=== PATIENT | female | born 2000 | race Caucasian/White ===

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

== ENCOUNTER 2020-05-30 18:26 | Emergency (ER) | payer MEDICAID, SELFPAY ==
[2019-04-12 07:57] VITALS: BMI 37.7
[2020-05-30 18:27] VITALS: BP 145/94; PULSE 140; RESP 20; TEMP 36.4; O2SAT 100; BMI 35.1
--- NOTE | 2020-05-30 18:44 | EKG12_ITS ---
Test Reason : SOB Blood Pressure : / mmHG Vent. Rate : 130 BPM Atrial Rate : 130 BPM P-R Int : 146 ms QRS Dur : 078 ms QT Int : 282 ms P-R-T Axes : 042 046 047 degrees QTc Int : 415 ms Sinus tachycardia Otherwise normal ECG Confirmed by GEORGIA BOND, MATT ([id number]), scientific editor SILVER FAROOQ ([id number]) on 06/04/2020 10:13:30 AM Referred By: CHRISTIANA Confirmed By:SHANTHI HO MD
--- NOTE | 2020-05-30 18:46 | ED.VISSUMM ---
- ER Visit Summary Date of Service: 05/30/20 Chief Complaint: Shortness of breath History of Present Illness: The patient is a 19 F who presents with shortness of breath and not feeling well for the past 3 days. Patient describes it as aching. Patient states it is generalized. Patient admits to subjective chills. Patient also admits to a sore throat. Patient admits to a nonproductive cough. Patient admits to general myalgias and headache. Patient denies any exposures to anybody with COVID-19. Patient denies any loss of taste or smell. Physical Examination: Vital signs are stable except for tachycardia of 140. Patient is afebrile. Patient is in no acute distress. Oral mucosa is pink and moist. Neck is supple. Trachea is midline. There is no JVD noted. Heart was regular and tachycardic. Lungs are clear and equal bilaterally. Abdomen is soft. Bowel sounds are normal. There is no tenderness. There is no rebound or guarding noted. Skin is warm dry. Cranial nerves II through XII are intact. There are no focal motor or sensory deficits noted. Extremities are intact. There is no calf tenderness or edema. Test Results: EKG was obtained. On my interpretation there is a sinus tachycardia with a rate of 130. There are no acute ST or T wave changes noted. CBC and comprehensive metabolic profile were obtained and were within normal limits. Serum hCG was negative. Portable 1 view chest x-ray was obtained. On my interpretation, lung coyne are clear. There is normal cardiac silhouette. Bony thorax is normal. There is no acute process noted. Radiologist also interpreted the x-ray and agrees. Due to the persistent tachycardia, CTA of the chest was obtained. There is no evidence of pulmonary embolism. There is no pulmonary consolidation. This was interpreted by the radiologist and reviewed by myself. Emergency Department Course and Treatment: Patient was given 500 cc bolus of normal saline. Patient was instructed to follow-up with her primary care physician in 3 to 5 days. Patient was instructed to quarantine for the next 10 days. Patient was instructed to return if worse in any way. Patient understood and was agreeable with the plan. All questions were answered. Disposition: Discharge home Impression: COVID-19 This note was generated with [employer] dictation software. It may contain incorrect words, spelling, and punctuation that were not noted in review of the chart prior to signing ED Disposition - Plan for ED Patient: Disposition: Home or Assisted Living Diagnosis: COVID-19 Instructions: Coronavirus Disease 2019 (COVID-19): Overview, Coronavirus Disease 2019 (COVID-19): Caring for Yourself or Others Referrals: Peggy Lei MD [Primary Care Provider] - 3-5 Days
--- NOTE | 2020-05-30 19:09 | RAD_ITS ---
STUDY: X-RAY CHEST REASON FOR EXAM: Female, 19 years old. SOB, COUGH, CONGESTION, HEADACHE, CHILLS, SORE THROAT AND MUSCLE PAIN X 3 DAYS. TECHNIQUE: Frontal view of the chest COMPARISON: 29 June 2017 FINDINGS: The lungs are clear and expanded. There is no demonstrated pleural abnormality. Normal size heart. Normal mediastinum and shanti. Normal visualized pulmonary arteries. Normal visualized aortic arch and descending thoracic aorta. Normal visualized thoracic spine. Normal visualized ribs, clavicles, and shoulders. There is no demonstrated abnormality of the visualized soft tissue structures of the upper abdomen. RAD/Chest 1 View (Portable) IMPRESSION: Normal x-ray examination of the chest. Electronically Signed: Pam White, at 19:58 EST Tel , Service support ,
[2020-05-30 19:21] LABS: Absolute Lymphocyte Count 0.85 X10^3/uL (0.83-4.51); Absolute Neutrophil Count 4.9 X10^3/uL (2.0-7.7); Basophil# 0.04 X10^3/uL; Basophil% 0.6 % (0-1); Eosinophil# 0.02 X10^3/uL; Eosinophils% 0.3 % (0-5); Hematocrit 43.3 % (37-47); Hemoglobin 14.9 g/dL (12.0-15.0); Lymphocyte # 0.85 X10^3/ul (4.0); Lymphocyte % 12.9 % (19-41); Mean Corp Hgb Conc 34.4 g/dL (32-36); Mean Corpuscular Hgb 29.9 pg (27.0-32.0); Mean Corpuscular Volume 86.8 fL (81-99); Mean Platelet Vol. 9.8 fl (6.2-12.0); Monocyte# 0.82 X10^3/uL; Monocyte% 12.4 % (0-10); NRBC Flagged by Analyzer 0 % (0-5); Neutrophil # 4.85 X10^3/uL (2.7-7.7); Neutrophil % 73.3 % (47-70); Platelet Count 316 K/mm3 (150-450); RBC Distribution Width CV 11.8 % (11.6-14.6); RBC Distribution Width SD 37.2 fl (35.1-43.9); Red Blood Count 4.99 M/mm3 (4.2-5.4); White Blood Count 6.6 K/mm3 (4.4-11.0)
[2020-05-30 19:39] LABS: ALB/GLOB Ratio 1.2 RATIO (0.9-2.4); AST(SGOT) 18 U/L (15-37); Alanine Aminotransfer ALT/SGPT 39 U/L (13-56); Alkaline Phosphatase 67 U/L (45-117); Anion Gap 4 (5-15); BUN 9 mg/dL (7-18); Calcium,Total 8.8 mg/dL (8.5-10.1); Chloride 108 mmol/L (98-107); Creatinine, Serum 0.69 mg/dL (0.55-1.02); EST Glomerular Filtration Rate 116 mL/min (>60); Est Glom Filt Rate - Afr Amer 140 mL/min (>60); Estimated Creatinine Clearance 113.24 ml/min; Globulin 3.2 g/dL (2.2-4.2); Glucose 88 mg/dL (74-106); Potassium 3.6 mmol/L (3.5-5.1); Protein, Total 7.2 g/dL (6.4-8.2); Sodium Level 139 mmol/L (136-145)
[2020-05-30 19:40] VITALS: PULSE 125; RESP 12; O2SAT 99
[2020-05-30] MEDS: Ibuprofen 600 MG Tablet PO (19:52)
[2020-05-30 19:58] LABS: Lactic Acid 1.1 mmol/L (0.4-1.9)
--- NOTE | 2020-05-30 20:45 | CT_ITS ---
STUDY: CTA CHEST REASON FOR EXAM: Female, 19 years old. COVID, SOB, COUGH, CONGESTION, MYALGIAS, SORE THROAT, TACHYCARDIA RADIATION DOSAGE (If Supplied By Facility): CTDIvol = ( 12.375 ) mGy, DLP = ( 487.28 ) mGycm TECHNIQUE: The examination was performed with the intravenous administration of IV 100mL [id number]-370. Post-processing of the angiographic images was performed, with multiplanar reformation and 3D reconstruction. Individualized dose optimization techniques were used for this CT. COMPARISON: None. FINDINGS: Normal enhancement of the main pulmonary artery and right and left pulmonary arteries. Normal enhancement of the bilateral peripheral pulmonary arteries. There is no demonstrated pulmonary embolism. Normal thoracic aorta and visualized great vessels. There is no demonstrated aortic dissection. Normal heart and pericardium. Normal mediastinum. Normal hilar regions. Normal visualized trachea and bronchi. The lungs are well expanded. Normal pulmonary parenchyma. Normal pleura. Normal chest wall structures. Normal osseous structures. Normal visualized upper abdomen. CT/CTA Chest W/WO Contrast IMPRESSION: No central or segmental pulmonary embolism. No airspace consolidation/infiltrate. Electronically Signed: Brando Salvador MD (Brooks) at 21:23 EST , Service support ,
[2020-05-30 21:18] LABS: Internal QC Validated? YES +Cl - CLEAR BKGD; Pregnancy, Serum, hCG Quali. NEGATIVE Negative
[2020-05-30 21:33] VITALS: BP 136/90; PULSE 119; RESP 21; TEMP 36.2; O2SAT 100
== END 2020-05-30 21:37 | disposition home or self-care (01) ==
PROVIDERS: Emergency Provider Emergency Medicine; PCP Pediatrics
DX: U07.1 COVID-19 (principal)
CPT/HCPCS: 36415; 71045; 71275; 80053; 83605; 84703; 85025; 87040; 87426; 93005; 99285; J7040; Q9967; A4216

== ENCOUNTER 2020-10-26 09:58 | Emergency (ER) | payer MEDICAID, SELFPAY ==
[2020-10-26 09:58] VITALS: BP 157/91; PULSE 98; RESP 16; TEMP 36.3; O2SAT 100; BMI 35.2
--- NOTE | 2020-10-26 10:21 | EX.ED.DYSGE1 ---
HPI History of Present Illness Chief Complaint: Flank Pain Informant: patient and parent Narrative Narrative: Patient continues with left flank pain. It started 3 days ago. At that time she went to [facility] and was diagnosed with a 3 mm kidney stone. She was given Baldwin, Zofran, ibuprofen and Flomax to take at home. She has a known history of Tylenol and when she took the Baldwin for pain it made her vomit. She has not taken it since that she continues with pain. Pain is in the left flank and radiates to the left groin. She denies any dysuria. She has had no new fevers. She is here today for pain and nausea control. [facility] Medical History (Updated 10/26/20 @ 11:[address] Myles Laurent MD) Acne vulgaris Anxiety and depression Kidney stones Patellofemoral stress syndrome of left knee Home Medications levonorgestrel 20.1 mcg/24 hrs (6 yrs) 52 mg intrauterine device 1 insert INTRAUTERINE ONCE 06/28/18 [History Last Taken Unknown] Xanax 0.25 mg PO/SL DAILY 05/30/20 [History Last Taken Unknown] oxycodone 5 mg PO Q6H PRN 3 Days #8 cap 10/26/20 [Rx Last Taken Unknown] promethazine 25 mg PO Q6H PRN PRN #10 tablet 10/26/20 [Rx Last Taken Unknown] Allergy/AdvReac Type Severity Reaction Status Date / Time acetaminophen [From Tylenol] AdvReac Vomiting Verified 10/26/20 10:01 Family History Mother Heart disease Father bipolar Surgical History History of tonsillectomy and adenoidectomy Social History Smoking Status: Never smoker alcohol intake: never substance use type: does not use what type of physical activity do you participate in: walking seatbelt use: always 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 ROS ROS ED Constitutional Constitutional ED: Denies chills or fever(s) Eyes Eyes: Denies blurry vision, change in vision, diplopia or loss of vision ENT ENT ED: Reports other; Denies ear pain, rhinorrhea or sore throat Cardiovascular Cardiovascular: Denies chest pain, palpitations or racing heartbeat Respiratory/Chest Respiratory/Chest: Denies cough, dyspnea, dyspnea on exertion or sputum Gastrointestinal Gastrointestinal: Denies abdominal pain, diarrhea, nausea or vomiting Genitourinary Genitourinary ED: Reports other Details: Left flank pain Musculoskeletal Musculoskeletal: Denies back pain, myalgias or neck pain Integumentary Denies abscess or rash Neurologic Neurologic: Denies headache(s) or weakness Psychiatric Psychiatric: Denies anxiety or depression Endocrine Endocrinology: Denies polydipsia or polyuria Hematologic/Lymphatic Hematologic/Lymphatic: Denies easy bleeding or easy bruising Allergic/Immunologic Allergic/Immunologic ED: Denies urticaria EXAM Physical Exam Const Vital Signs: 10/26/20 09:58 Temperature 97.3 F L Temperature Source Temporal Pulse Rate 98 Respiratory Rate 16 Blood Pressure 157/91 H Blood Pressure Mean 113 Pulse Ox 100 Oxygen Delivery Method Room Air Positive well nourished and well developed General Appearance ED: well developed and NAD HEENT Reports normocephalic and head/scalp atraumatic normocephalic and atraumatic; Negative for tenderness Eyes PERRL and EOMs intact bilaterally General Eye ED: Negative for scleral icterus Neck supple and no JVD Chest Wall palpation of chest normal Chest: Negative for tenderness Resp normal respiratory effort and clear to auscultation bilaterally Effort and Inspection: Negative for respiratory distress Cardio regular rate and regular rhythm; Negative for no murmurs GI soft to palpation, non-tender and non-distended Palpation: soft and tender other (Left side) Narrative: She does have left flank tenderness to palpation. Back/Spine no CVA tenderness and no thoracic nor lumbar tenderness Cervical Spine: Negative for cervical spine tenderness Extremity normal to inspection General Extremety ED: Negative for tenderness Neuro oriented x3, CN's II-XII intact bilaterally and no sensory deficits noted Sensorium / Orientation: awake and alert Motor Exam: strength 5/5 throughout Psych mental status grossly normal Skin no rashes or lesions noted MDM MDM MDM Narrative Medical decision making narrative: I was able to review the patient's visit from her previous ED stay at the other facility. She was found to have a 3 mm stone at the left UVJ. Her urinalysis had no infection. At this point the patient was treated with Toradol and morphine. She still had pain so she was given 1 dose of Dilaudid. Upon reevaluation at 1145 she is feeling much better. I feel she can be discharged home with oxycodone without Tylenol as this likely caused and precipitated her vomiting. I will give her Phenergan as well to help with her vomiting. She will be given urology follow-up. Discharge Plan Triage Chief Complaint: Flank Pain ED Provider: Myles Laurent Dx/Rx/DC Orders Clinical Impression: Renal colic on left side Instructions: ED Kidney Stone w/ Colic Prescriptions: New promethazine [promethazine] 25 MG tablet 25 mg PO Q6H PRN PRN (Reason: Nausea) Qty: 10 RF: 0 oxycodone 5 mg capsule 5 mg PO Q6H PRN (Reason: pain) 3 Days Qty: 8 RF: 0 No Action Liletta 19.5 mcg/24 hour (4 years) intrauterine device 1 insert Intrauterine ONCE RF: 0 Xanax 0.25 mg PO/SL DAILY RF: 0 Primary Care Provider: Peggy Lei Referrals: Dusty Martínez MD [STAFF PHYSICIAN] - Peggy Lei MD [Primary Care Provider] - Disposition Disposition: Home, self care
[2020-10-26] MEDS: Morphine 4 MG/ML Syringe IV (10:42)
[2020-10-26] MEDS: 0.9% Normal Saline 1,000 ML 1000 ML IV (10:42)
[2020-10-26] MEDS: Ketorolac 15 MG/ML Vial IV (10:43)
[2020-10-26] MEDS: Ondansetron 4 MG/2 ML Vial IV (10:43)
--- NOTE | 2020-10-26 10:45 | ED.RN ---
PT MEDICATED PER THIS RN. COMPUTER IN ROOM NOT WORKING.
[2020-10-26] MEDS: HYDROmorphone 1 MG/ML Syringe IV (11:30)
[2020-10-26 12:01] VITALS: PULSE 92; RESP 16; O2SAT 98
== END 2020-10-26 12:05 | disposition home or self-care (01) ==
PROVIDERS: Emergency Provider Emergency Medicine; PCP Pediatrics
DX: N23 Unspecified renal colic (principal); F41.9 Anxiety disorder, unspecified; Z79.899 Other long term (current) drug therapy
CPT/HCPCS: 96374; 96375; 99284; A4216; J2405

== ENCOUNTER 2021-01-21 21:18 | Emergency (ER) | payer MEDICAID, SELFPAY ==
[2021-01-21 21:18] VITALS: BP 120/72; PULSE 119; RESP 18; TEMP 36.3; O2SAT 99; BMI 37.5
[2021-01-21 21:41] LABS: Mucous, Urine 0 SEEN /hpf (<or=2+); Red Blood Cells-Urine 0 SEEN /hpf (0-5)
[2021-01-21 21:44] LABS: Color, Urine YELLOW (Yellow); Glucose, Dipstick Normal (Normal); Ketone-Dipstick 15 mg/dl (Negative); Leukocyte Esterase-Dipstick 500 /ul (Negative); Nitrite-Dipstick Negative (Negative); Occult Blood-Urine Negative /ul (Negative); Protein-Dipstick 30 mg/dl (Negative); Specific Gravity, Urine 1.015 (1.002-1.030); Urine Bilirubin Dipstick Negative (Negative); Urine Clarity Cloudy (Clear); Urine Urobilinogen 4 mg/dl (Normal); Urine pH 6.5 (5.0 - 8.0)
[2021-01-21 21:51] LABS: Squamous Epithelial Cells - UA 10-25 SEEN /hpf (5-10)
[2021-01-21 21:53] LABS: White Blood Cells 10-25 SEEN /hpf (0-5)
[2021-01-21 21:55] LABS: Bacteria 2+ /hpf (None Seen)
--- NOTE | 2021-01-21 22:14 | EX.ED.DYSGE1 ---
HPI History of Present Illness Chief Complaint: Flank Pain Informant: patient Onset/Context/Timing Onset: Today Context: - (Awoke with symptoms this morning mostly, progressive throughout the day) Timing: Continuous Current Severity: Moderate Maximum Severity: Moderate Worsened by: n/a Relieved by: n/a Associated Symptoms Associated Symptoms: n/v, urinary sx, headache, low back pain Narrative Narrative: Patient woke up this morning with migraine bifrontal, she has had this before, associated with nausea and vomiting, low back pain, and urinary symptoms are progressed throughout the day. She has had urinary frequency, urgency, hesitancy. No gross dysuria or hematuria, no abdominal pain, no fevers or chills. She has pain throughout her low back nonlateralizing, she states it feels like kidney pain and she has a history of kidney stones and admits usually that pain is unilateral and worse than this. Patient has an IUD and has had no menstrual cycles for couple years. [facility] Medical History Acne vulgaris Anxiety and depression Kidney stones Patellofemoral stress syndrome of left knee PTSD (post-traumatic stress disorder) Home Medications levonorgestrel 20.1 mcg/24 hrs (6 yrs) 52 mg intrauterine device 1 insert INTRAUTERINE ONCE 06/28/18 [History Last Taken Unknown] Xanax 0.25 mg PO/SL DAILY 05/30/20 [History Last Taken Unknown] metoclopramide HCl 10 mg PO Q6H PRN PRN #20 tab 01/21/21 [Rx Last Taken Unknown] nitrofurantoin monohyd/m-cryst [Macrobid] 100 mg PO Q12H 5 Days #10 cap 01/21/21 [Rx Last Taken Unknown] Allergy/AdvReac Type Severity Reaction Status Date / Time acetaminophen [From Tylenol] AdvReac Vomiting Verified 01/21/21 21:21 Family History Mother Heart disease Father bipolar Surgical History History of tonsillectomy and adenoidectomy Social History Smoking Status: Never smoker alcohol intake: never substance use type: does not use what type of physical activity do you participate in: walking seatbelt use: always additional social history: [employer]- [employer] Education ROS ROS ED Constitutional Constitutional ED: Denies chills or fever(s) Eyes Eyes: Denies change in vision or diplopia ENT ENT ED: Denies rhinorrhea or sore throat Cardiovascular Cardiovascular: Denies chest pain or palpitations Respiratory/Chest Respiratory/Chest: Denies cough or dyspnea Gastrointestinal Gastrointestinal: Reports nausea and vomiting; Denies abdominal pain or diarrhea Genitourinary Genitourinary ED: Reports as per HPI, urinary frequency, urinary hesitancy and urinary urgency; Denies dysuria or hematuria Musculoskeletal Musculoskeletal: Reports back pain; Denies neck pain Integumentary Denies abscess or rash Neurologic Neurologic: Denies headache(s), paresthesias or weakness Psychiatric Psychiatric: Denies anxiety or suicidal thoughts EXAM Physical Exam Const Vital Signs: 01/21/21 21:18 01/21/21 21:55 Temperature 97.3 F L Temperature Source Temporal Pulse Rate 119 H Respiratory Rate 18 Respiratory Effort Normal Non-Labored Respiratory Pattern Normal Blood Pressure 120/72 Blood Pressure Mean 88 Pulse Ox 99 Oxygen Delivery Method Room Air Positive well nourished and well developed General Appearance ED: well developed and NAD HEENT Reports moist mucous membranes normocephalic and atraumatic Eyes PERRL and EOMs intact bilaterally Neck full ROM and supple Resp normal respiratory effort and clear to auscultation bilaterally Cardio regular rate, regular rhythm and no murmurs GI non-tender and non-distended Auscultation: normoactive bowel sounds Palpation: soft Back/Spine normal ROM and normal to inspection Back/Spine Narrative: Patient points to lower back in the lumbar area with pain, she has mild discomfort with CVA tapping bilaterally General Back: other FROM Extremity normal to inspection General Extremety ED: Negative for edema, pulses abnormal or tenderness General Extremity: Negative for edema or pulses abnormal Neuro oriented x3, CN's II-XII intact bilaterally and no sensory deficits noted Sensorium / Orientation: awake and alert Motor Exam: strength 5/5 throughout Skin no rashes or lesions noted and no wounds MDM MDM MDM Narrative Medical decision making narrative: Urinalysis as below, signs of infection and no blood. My suspicion is her low back pain is due to cystitis, along with her urinary symptoms, and her vomiting is more related to her migraine. Given that my suggestion is to treat symptomatically and try a course of antibiotics directed at cystitis, as opposed to CT and further work-up, discussed these options with the patient and her mother and they are in agreement with that. Lab Data Attestation: I reviewed the patient's lab results. Labs: Laboratory Results - last 24 hr 01/21/21 21:30 Urine Color YELLOW Urine Clarity Cloudy Urine pH 6.5 Ur Specific [place] 1.015 Urine Protein 30 H Urine Glucose (UA) Normal Urine Ketones 15 H Urine Occult Blood Negative Urine Nitrite Negative Urine Bilirubin Negative Urine Urobilinogen 4 H Ur Leukocyte Esterase 500 H Urine RBC 0 SEEN Urine WBC 10-25 SEEN Ur Squamous Epith Cells 10-25 SEEN Urine Bacteria 2+ Urine Mucus 0 SEEN Discharge Plan Triage Chief Complaint: Flank Pain ED Provider: Brennan Miguel Dx/Rx/DC Orders Clinical Impression: Acute cystitis, Headache, migraine Instructions: ED, Migraine (Classical), ED CYSTITIS Female Adult Prescriptions: New metoclopramide HCl [metoclopramide HCl] 10 MG tablet 10 mg PO Q6H PRN PRN (Reason: Headache or nausea) Qty: 20 RF: 0 nitrofurantoin monohyd/m-cryst [Macrobid] 100 mg capsule 100 mg PO Q12H 5 Days Qty: 10 RF: 0 No Action Liletta 19.5 mcg/24 hour (4 years) intrauterine device 1 insert Intrauterine ONCE RF: 0 Xanax 0.25 mg PO/SL DAILY RF: 0 Primary Care Provider: Peggy Lei Referrals: Peggy Lei MD [Primary Care Provider] - 3-5 Days if not improving Disposition Disposition: Home, Self Care
[2021-01-21] MEDS: Nitrofurantoin Macrocrystals 100 MG Capsule PO (22:18)
[2021-01-21] MEDS: Metoclopramide 10 MG/2 ML Vial 5 MG IM (22:19)
[2021-01-21] MEDS: Ketorolac 60 MG/2 ML Vial IM (22:19)
== END 2021-01-21 23:01 | disposition home or self-care (01) ==
LOC: ED 22:53
PROVIDERS: Emergency Provider Emergency Medicine; PCP Pediatrics
DX: N30.00 Acute cystitis without hematuria (principal); G43.909 Migraine, unspecified, not intractable, without status migrainosus; Z79.3 Long term (current) use of hormonal contraceptives; Z87.442 Personal history of urinary calculi
CPT/HCPCS: 81001; 96372; 99283

== ENCOUNTER 2022-01-23 14:25 | Emergency (ER) | payer MEDICAID, SELFPAY ==
[2022-01-23 14:27] VITALS: BP 122/74; PULSE 99; RESP 24; TEMP 37.7; O2SAT 100; BMI 37.2
--- NOTE | 2022-01-23 14:36 | EDS_ITS ---
HPI History of Present Illness Chief Complaint: Lower Extremity Injury Informant: patient Onset/Context/Timing Onset: Today Context: Sudden Onset Quality of Pain: Aching and Throbbing Current Severity: Severe Maximum Severity: Severe Narrative Narrative: Patient present secondary to right ankle injury. She states that she was at [employer] and jumped down off of something rolling her ankle. She denies any other injury. [facility] Medical History Acne vulgaris Anxiety and depression Kidney stones Patellofemoral stress syndrome of left knee PTSD (post-traumatic stress disorder) Home Medications levonorgestrel 20.1 mcg/24 hrs (6 yrs) 52 mg intrauterine device (Liletta) 1 insert Intrauterine ONCE 06/28/18 [History Last Taken Unknown] naproxen 500 mg tablet (Naprosyn) 500 mg PO BID PRN pain #20 tabs 01/23/22 [Rx Last Taken Unknown] Allergy/AdvReac Type Severity Reaction Status Date / Time acetaminophen [From Tylenol] AdvReac Vomiting Verified 01/23/22 14:27 Family History Mother Heart disease Father bipolar Surgical History History of tonsillectomy and adenoidectomy Social History Smoking Status: Never smoker alcohol intake: never substance use type: does not use what type of physical activity do you participate in: walking seatbelt use: always additional social history: [employer]- [employer] Education ROS ROS ED Constitutional Constitutional ED: Denies chills or fever(s) Eyes Eyes: Denies change in vision or discharge from eye(s) ENT ENT ED: Denies discharge from eye(s), rhinorrhea or sore throat Cardiovascular Cardiovascular: Denies chest pain or palpitations Respiratory/Chest Respiratory/Chest: Denies cough or dyspnea Gastrointestinal Gastrointestinal: Reports nausea and other Details: Dry heaves ; Denies abdominal pain or diarrhea Genitourinary Genitourinary ED: Denies difficulty urinating or dysuria Musculoskeletal Musculoskeletal: Reports extremity pain; Denies back pain Integumentary Denies Abrasions or rash Neurologic Neurologic: Denies headache(s) or weakness Allergic/Immunologic Allergic/Immunologic ED: Denies lip swelling or urticaria EXAM Physical Exam Const Vital Signs: 01/23/22 14:27 Temperature 99.8 F H Temperature Source Temporal Pulse Rate 99 Respiratory Rate 24 H Blood Pressure 122/74 H Blood Pressure Mean 90 Pulse Ox 100 Oxygen Delivery Method Room Air Positive well nourished and well developed General Appearance ED: well developed HEENT Reports normocephalic and head/scalp atraumatic Eyes PERRL and EOMs intact bilaterally Neck supple Chest Wall inspection of chest normal and palpation of chest normal Resp normal respiratory effort and clear to auscultation bilaterally Cardio regular rate and regular rhythm GI normal to inspection, nondistended, normoactive bowel sounds Palpation: soft Extremity Extremity Narrative: Edema and tenderness over the lateral malleolus of the right ankle. No tenderness over the foot itself. No tenderness at the knee or proximal fibula. Strong distal pulses and can wiggle toes. Neuro oriented x3 Sensorium / Orientation: alert Psych Psych Narrative: Anxious and tearful Skin no rashes or lesions noted MDM MDM MDM Narrative Medical decision making narrative: Patient given IM Toradol and Zofran. Right ankle x-rays obtained. Treatment and Re-Evaluation Narrative: Right ankle x-ray per my interpretation shows no fracture. Test results discussed with the patient. She be placed in an air stirrup splint and given crutches. She may weight-bear as tolerated. Prescription for naproxen will be sent to the pharmacy for her. Orthopedic follow-up information given if needed. Return instructions provided. Discharge Plan Triage Chief Complaint: Lower Extremity Injury ED Provider: Sandra Thomas Dx/Rx/DC Orders Clinical Impression: Right ankle sprain Instructions: ED Ankle Sprain (Adult) Prescriptions: New naproxen [Naprosyn] 500 mg tablet 500 mg PO BID PRN (Reason: pain) Qty: 20 0RF No Action Liletta 19.5 mcg/24 hour (4 years) intrauterine device 1 insert Intrauterine ONCE Primary Care Provider: Peggy Lei Referrals: Peggy Lei MD [Primary Care Provider] - Vidal Kraus MD [Med Staff - Active Staff] - 10-14 Days if not better Disposition Disposition: Home, Self Care
[2022-01-23] MEDS: Ketorolac 60 MG/2 ML Vial IM (14:41)
[2022-01-23] MEDS: Ondansetron 4 MG/2 ML Vial IM (14:42)
--- NOTE | 2022-01-23 14:45 | RAD_ITS ---
STUDY: X-RAY - RIGHT ANKLE REASON FOR EXAM: Female, 21 years old. injury TECHNIQUE: 3 view(s) of the ankle. COMPARISON: None. FINDINGS: Normal visualized distal tibia and fibula. Normal medial and lateral malleoli. Normal tibiotalar articulation and ankle mortise. Normal visualized talus and calcaneus. The visualized subtalar, talonavicular, calcaneocuboid and tarsal articulations are normal. There is no demonstrated fracture. Mild soft tissue swelling is present around the ankle. RAD/Ankle min 3 Views IMPRESSION: Mild soft tissue swelling Electronically Signed: Brent Frazier MD at 15:08 EDT ,
[2022-01-23 15:08] VITALS: RESP 16
== END 2022-01-23 15:34 | disposition home or self-care (01) ==
PROVIDERS: Emergency Provider Emergency Medicine; PCP Pediatrics; Visit Provider Emergency Medicine
DX: S93.401A Sprain of unspecified ligament of right ankle, initial encounter (principal); X50.1XXA Overexertion from prolonged static or awkward postures, initial encounter; Y93.39 Activity, other involving climbing, rappelling and jumping off; Y99.8 Other external cause status; Y92.838 Other recreation area as the place of occurrence of the external cause
CPT/HCPCS: 73610; 96372; 99284; J2405

== ENCOUNTER → 2022-09-22 | Outpatient (CLI) | payer MEDICAID, SELFPAY ==
[2022-09-22 12:02] LABS: Progesterone Level 0.73 ng/mL (See Comment)
[2022-09-22 12:11] LABS: Estradiol 230.8 pg/mL; Follicle Stimulating Hormone 9.5 mIU/mL; Luteinizing Hormone 52.6 mIU/mL; Prolactin 11.1 ng/mL
[2022-09-23 21:07] LABS: Chlamydia By Nucleic Acid AMP Negative (Negative); Gonococcus By Nucleic Acid AMP Negative (Negative)
[2022-09-29 20:33] LABS: HPV Reflexed? NOT INDICATED
== END | disposition home or self-care (01) ==
LOC: LAB 10:46
PROVIDERS: PCP Pediatrics; Referring Provider Obstetrics & Gynecology; Visit Provider Obstetrics & Gynecology
DX: Z12.4 Encounter for screening for malignant neoplasm of cervix (principal); Z11.3 Encounter for screening for infections with a predominantly sexual mode of transmission; N91.2 Amenorrhea, unspecified
CPT/HCPCS: 36415; 82670; 83001; 83002; 84144; 84146; 84443; 87491; 87591; 88175; G0145

== ENCOUNTER → 2023-03-27 | Outpatient (CLI) | payer MEDICAID, SELFPAY ==
--- NOTE | 2023-03-27 15:13 | US_ITS ---
STUDY: ULTRASOUND OF THE FEMALE PELVIS - COMPLETE REASON FOR EXAM: Female, 22 years old. amenorrhea, r/o PCOS LMP: TECHNIQUE: Transabdominal and transvaginal TECHNICAL QUALITY: Adequate. COMPARISON: None. FINDINGS: The uterus is anteverted and is in a midline position. The uterus measures 8.4 x 4.4 x 4 cm. Normal uterine cervix. The endometrium measures 6.6 mm in thickness, and is hyperechoic. There is no demonstrated endometrial mass. There is no demonstrated myometrial mass. I.U.D. - The patient does not have an I.U.D. The right ovary is visualized. The right ovary measures 3.2 x 2 x 2.1 cm. There is numerous subcentimeter follicles. There is no dominant right ovarian cyst or ovarian mass. There is no visualized right adnexal mass or complex lesion. There is normal arterial and normal venous vascularity. The left ovary is visualized. The left ovary measures 4.1 x 2.3 x 2.3 cm. There are numerous subcentimeter follicles There is no dominant left ovarian cyst or ovarian mass. There is no visualized left adnexal mass or complex lesion. There is normal arterial and normal venous vascularity. There is mild fluid in the cul-de-sac. US/Pelvic (Non ) IMPRESSION: Multiple subcentimeter ovarian follicles bilaterally. Possibility of polycystic ovary disease not excluded Recommend correlation with hormonal levels and other clinical parameters Electronically Signed: Onel Hill MD at 18:22 EDT ,
== END | disposition home or self-care (01) ==
LOC: US 15:11
PROVIDERS: Referring Provider Obstetrics & Gynecology; Visit Provider Obstetrics & Gynecology
DX: N91.2 Amenorrhea, unspecified (principal); N97.0 Female infertility associated with anovulation
CPT/HCPCS: 76830; 76856

== ENCOUNTER → 2023-05-09 | Outpatient (CLI) | payer MEDICAID, SELFPAY ==
--- NOTE | 2023-05-09 11:23 | RAD_ITS ---
INDICATION: infertility EXAMINATION/TECHNIQUE: Routine hysterosalpingography was performed. Total Fluoroscopic Time: 10 seconds AND number of Fluoroscopic Images: OR Radiation dosage index: 6.19 mGy COMPARISON: No relevant prior comparison study available FINDINGS: The uterine cavity contour is unremarkable. There are no filling defects or abnormalities. Both fallopian tubes are patent with free peritoneal spillage bilaterally. RAD/Salpingogram IMPRESSION: Negative hysterosalpingogram. Electronically Signed: Javier Soriano MD at 12:41 EST ,
--- NOTE | 2023-05-09 13:04 | OP.PCM_ITS ---
Problems Associated Problem List Diagnoses (1) Infertility associated with anovulation: Report of Operation Date of Procedure: 05/09/23 Pre-Operative Diagnosis: infertility Post-Operative Diagnosis: infertility Surgery/Procedure Performed:: Hysterosalpingogram Description of Surgical Findings:: bilateral spillage of contrast dye of both fallopian tubes. normal uterine cavity appearance. Surgeon: Sandra Mooney assistant to the director: None Type of Anesthesia: None Special Medications: none Specimen's removed: none Drains: none Estimated Blood Loss (mL): none Fluids Replaced: none Description of Procedure: Findings: Bilateral tubal patency and normal uterine cavity Operative details: Patient was taken to the x-ray room and was placed on the x- ray table and was in the dorsal lithotomy position. Speculum was placed in the vagina and the cervix prepped with Betadine and the HSG catheter was easily introduced into the uterus and speculum removed. Radiologist was brought in and while pushing radiopaque dye into the uterus via the HSG catheter the radiologist took multiple images and views and confirmed bilateral tubal patency seen. No gross uterine filling defects or abnormalities were seen. All instruments removed from the vagina and the uterus without complication. Patient tolerated the procedure well. Grafts/Implants Used: none Procedure Start Time: 12:05 Procedure Stop Time: 12:15 Complications none Admit VTE Documentation VTE Present on Admission: No VTE Pharm Prophylaxis ordered?: No Multi Select Codes Urinary/Genital Urinary/Genital CPT Codes: 01729 HSG/SIS
== END | disposition home or self-care (01) ==
LOC: RAD 11:21
PROVIDERS: Referring Provider Obstetrics & Gynecology; Visit Provider Obstetrics & Gynecology
DX: N97.0 Female infertility associated with anovulation (principal)
CPT/HCPCS: 58340; 74740; Q9967

== ENCOUNTER → 2023-06-06 | Outpatient (CLI) | payer MEDICAID, SELFPAY ==
[2023-06-06 17:25] LABS: hCG Titer Quant., Serum 802 mIU/mL (1-3)
--- OUTSIDE RECORDS SUMMARY | 2023-06-06 18:27 | XMS RPT_ITS | CCD ---
Author Name Unknown Address [address] [place] [address] Organization [facility] Care Team Providers Care Pouncer Name Role Phone DoPeggyborn Primary Care Provider DIAZ LEPE Attending YUNIOR Quezada PA-C Attending NOHELIA Sanchez MD. Primary Care Unavailable Allergies Allergy Classification Reported Allergen(s) Allergy Type Date of Onset Reaction(s) Facility (2 sources) Acetaminophen; Translations: [ACETAMINOPHEN] Drug Allergy 01-09-2019 [facility] Work Phone: Medications Completed/Discontinued Medications Medication Drug Class(es) Dates Sig (Normalized) Sig (Original) acetaminophen 325 mg oral tablet (1 source) take 2 tablets by mouth every six hours as needed acetaminophen (TYLENOL) 325 mg tablet Take 650 mg by mouth every 6 hours as needed for Pain or Fever. 0 Active Problems Active Problems Problem Classification Problem Date Documented Date Episodic/Chronic Joint disorders and dislocations; trauma-related (1 source) Patellofemoral syndrome of left knee; Translations: [Patellofemoral disorders, left knee] Onset: 12-23-2015 12-23-2015 Chronic Mood disorders (1 source) Depressive disorder; Translations: [Depression] Onset: 03-02-2015 03-02-2015 Chronic Sprains and strains (1 source) Sprain of unspecified ligament of left ankle, initial encounter; Translations: [Sprain of left ankle, unspecified ligament, initial encounter] Onset: 10-19-2022 Episodic Past or Other Problems Problem Classification Problem Date Documented Da te Episodic/Chronic Other nutritional; endocrine; and metabolic disorders (1 source) Overweight; Translations: [Overweight] Onset: 12-01-2016 12-01-2016 Episodic Other skin disorders (1 source) Acne vulgaris; Translations: [Acne vulgaris] Onset: 03-27-2015 03-27-2015 Episodic Residual codes; unclassified (1 source) FH: Cardiomyopathy; Translations: [Family history of ischemic heart disease and other diseases of the circulatory system] Onset: 12-01-2016 12-01-2016 Episodic Results Test Name Value Interpretation Reference Range Facil ity Encounters Encounter Date Encounter Type Care Provider Facility Start: 04-30-2023 End: 04-30-2023 ambulatory YUNIOR HUANG PA-C Facility:A Start: 03-23-2022 End: 03-23-2022 Emergency department patient visit DIAZ RHOADESDEMARCUS Facility:[id number] Start: 09-15-2021 End: 09-15-2021 Subsequent hospital visit by physician Peggy Lei Work Phone: [facility] Procedures Date Procedure Procedure Detail Performing Clinician Start: 12-01-2016 Adult depression screening assessment Peggy Gama Phone: Plan of Treatment Date Care Activity Detail Author Start: 04-09-2023 Urine microalbumin profile DTA P,TDAP,TD (6 - Td or Tdap) [facility] Start: 02-03-2022 Influenza vaccination INFLUENZA (Sea son Ended) [facility] Start: 2018 CHLAMYDIA SCREENING (18-24) CHLAMYDIA SCREENING (18-24) [facility] Start: 2018 GC (GONORRHEA) SCREE PATRICK (18-24) GC (GONORRHEA) SCREENING (18-24) [facility] Start: 2018 HEPATITIS C SCREENING HEPATITIS C SC REENING [facility] Start: 2018 HIV SCREENING HIV SCREENING [facility] Start: 12-01-2017 Adult depression scr eening assessment DEPRESSION SCREENING [facility] Start: 2014 PEDS TO ADULT TRANSI TION ANNUAL ASSESSMENT PEDS TO ADULT TRANSITION ANNUAL ASSESSMENT [facility] Start: 2012 PEDS TO ADULT TRANSI TION INITIAL DISCUSSION PEDS TO ADULT TRANSITION INITIAL DISCUSSION [facility] Start: 2005 COVID-19 VACCINE (1) COVID-19 VACCIN E (1) [facility] Immunizations Immunization Date Immunization Notes Care Provider Michael hernandez 01-06-2017 hepatitis A vaccine, pediatric/adolescent dosage, 2 dose schedule Peggy Lei Work Phone: [facility] Work Phone: 01-06-2017 Human Papillomavirus 9-valent vaccine Peggy Lei Work Phone: [facility] Work Phone: 01-06-2017 meningococcal polysaccharide (groups A, C, Y and W-135) diphtheria toxoid conjugate vaccine (MCV4P) Peggy Carrascoh Work Phone: [facility] Work Phone: 08-16-2016 Human Papillomavirus 9-valent vaccine Peggy Lei Work Phone: [facility] 12-22-2015 hepatitis A vaccine, pediatric/adolescent dosage, 2 dose schedule Peggy Lei Work Phone: [facility] Work Phone: 12-22-2015 Human Papillomavirus 9-valent vaccine Peggy Carrascoh Work Phone: [facility] Work Phone: 12-22-2015 poliovirus vaccine, inactivated Peggy Lei Work Phone: [facility] Work Phone: 04-09-2013 influenza virus vacc ine, unspecified formulation Peggy Carrascoh Work Phone: [facility] Work Phone: 04-09-2013 meningococcal polysaccharide (groups A, C, Y and W-135) diphtheria toxoid conjugate vaccine (MCV4P) Peggy Carrascoh Work Phone: [facility] Work Phone: 04-09-2013 tetanus toxoid, redu marquise diphtheria toxoid, and acellular pertussis vaccine, adsorbed Peggy Carrascoh Work Phone: [facility] Work Phone: 03-04-2011 influenza virus vacc ine, unspecified formulation Peggy Carrascoh Work Phone: [facility] Work Phone: 10-06-2009 varicella virus vaccine Modesta Carrascoh Work Phone: [facility] Work Phone: 04-22-2009 novel influenza-H1N1 -09, all formulations Peggy Langmuth Work Phone: [facility] Work Phone: 02-19-2006 haemophilus influenz ae type b vaccine, HbOC conjugate Peggy [facility] Work Phone: [facility] Work Phone: 01-16-2006 diphtheria, tetanus toxoids and acellular pertussis vaccine Peggy Carrascoh Work Phone: [facility] Work Phone: 04-19-2005 measles, mumps and rubella virus vaccine Peggy Langmuth Work Phone: [facility] Work Phone: 04-19-2005 varicella virus vaccine Modesta Langmuth Work Phone: [facility] Work Phone: 01-12-2005 pneumococcal Conjuga te, unspecified formulation Peggy Carrascoh Work Phone: [facility] Work Phone: 02-19-2002 poliovirus vaccine, inactivated Peggy Langmuth Work Phone: [facility] Work Phone: 2001 measles, mumps and rubella virus vaccine Peggy Langmuth Work Phone: [facility] Work Phone: 08-05-2001 diphtheria, tetanus toxoids and acellular pertussis vaccine Peggy Carrascoh Work Phone: [facility] Work Phone: 07-31-2001 hepatitis B vaccine, pediatric or pediatric/adolescent dosage Peggy Langmuth Work Phone: [facility] Work Phone: 05-09-2001 diphtheria, tetanus toxoids and acellular pertussis vaccine Peggy Lei Work Phone: [facility] Work Phone: 05-09-2001 haemophilus influenz ae type b vaccine, HbOC conjugate Peggy Lei Work Phone: [facility] Work Phone: 05-09-2001 poliovirus vaccine, inactivated Peggy Do Work Phone: [facility] Work Phone: 03-09-2001 diphtheria, tetanus toxoids and acellular pertussis vaccine Peggy Do Work Phone: [facility] Work Phone: 03-09-2001 haemophilus influenz ae type b vaccine, HbOC conjugate Peggy Carrascoh Work Phone: [facility] Work Phone: 03-09-2001 poliovirus vaccine, inactivated Peggy Do Work Phone: [facility] Work Phone: 01-31-2001 diphtheria, tetanus toxoids and acellular pertussis vaccine Peggy Do Work Phone: [facility] Work Phone: 01-31-2001 haemophilus influenz ae type b vaccine, HbOC conjugate Peggy Carrascoh Work Phone: [facility] Work Phone: 01-31-2001 hepatitis B vaccine, pediatric or pediatric/adolescent dosage Peggy Do Work Phone: [facility] Work Phone: 01-31-2001 poliovirus vaccine, inactivated Peggy Do Work Phone: [facility] Work Phone: 2000 hepatitis B vaccine, pediatric or pediatric/adolescent dosage Peggy Do Work Phone: [facility] Work Phone: Payers Date Payer Category Payer Unknown [id number] 2012 Medicaid [employer] [id number] 2012-Present [phone] [address] [place] [address] Medicaid [id number] 2012 Medicaid [id number] 1978 Unknown [id number] Social History Date Type Detail Facility Tobacco smoking status NHIS Never smoked tobacco [facility] Start: 06-07-2019 Alcohol intake Not Asked [facility] Start: 03-27-2015 Tobacco Comment step dad in house [facility] Start: 2000 Sex Assigned At Not on file [facility] Summary Purpose Family History No Family History Records FoundNo Family History Records FoundNo Family History Records FoundNo Family History Records FoundNo Family History Records FoundNo Family History Records Found Advance Directives No Advanced Directives Records FoundNo Advanced Directives Records FoundNo Advanced Directives Records FoundNo Advanced Directives Records FoundNo Advanced Directives Records FoundNo Advanced Directives Records Found Additional Source Comments INFORMATION SOURCE (unrecogn ized section and content) DATE CREATED AUTHOR AUTHOR'S ORGANIZ ATION 04/22/2021 [facility] DATE CREATED AUTHOR AUTHOR'S ORGANIZ ATION 06/23/2021 [facility] DATE CREATED AUTHOR AUTHOR'S ORGANIZ ATION [facility]2021 [facility] DATE CREATED AUTHOR AUTHOR'S ORGANIZ ATION 03/28/2022 [facility] DATE CREATED AUTHOR AUTHOR'S ORGANIZ ATION 05/12/2023 [facility] ([place]) Source Comments (unrecognize d section and content) In the event this informatio n is protected by the Federal Confidentiality of Alcohol and Drug Abuse Patient Records regulations: The Federal rules restrict any use of the information to criminally investigate or prosecute any alcohol or drug abuse patient.[facility] Care Teams (unrecognized sec tion and content) FOR RECORDS PERTAINING TO PATIENTS WHO ARE OR HAVE BEEN ENROLLED IN A CHEMICAL DEPENDENCY/SUBSTANCEABUSE PROGRAM, SOME INFORMATION MAY BE OMITTED. This clinical summary was aggregated from multiple sources. Caution should be exercised in using it in the provision of clinical care. This summary normalizes information from multiple sources, and as a consequence, information in this document may materially change the coding, format and clinical context of patient data. In addition, data may be omitted in some cases. CLINICAL DECISIONS SHOULD BE BASED ON THE PRIMARY CLINICAL RECORDS. [facility]. provides no warranty or guarantee of the accuracy or completeness of information in this document.
== END | disposition home or self-care (01) ==
LOC: LAB 16:29
PROVIDERS: Referring Provider Advanced Practice Midwife; Visit Provider Advanced Practice Midwife
DX: O26.859 Spotting complicating pregnancy, unspecified trimester (principal); Z3A.00 Weeks of gestation of pregnancy not specified
CPT/HCPCS: 36415; 84702

== ENCOUNTER → 2023-06-08 | Outpatient (CLI) | payer MEDICAID, SELFPAY ==
[2023-06-08 17:19] LABS: hCG Titer Quant., Serum 1714 mIU/mL (1-3)
--- OUTSIDE RECORDS SUMMARY | 2023-06-08 18:46 | XMS RPT_ITS | CCD ---
Author Name Unknown Address [address] [place] [address] Organization [facility] Care Team Providers Care Auto Rental Clerk Name Role Phone DoPeggyborn Primary Care Provider DIAZ LEPE Attending YUNIOR Quezada PA-C Attending NOHELIA Sanchez MD. Primary Care Unavailable Allergies Allergy Classification Reported Allergen(s) Allergy Type Date of Onset Reaction(s) Facility (2 sources) Acetaminophen; Translations: [ACETAMINOPHEN] Drug Allergy 01-09-2019 [facility] Work Phone: Medications Completed/Discontinued Medications Medication [...] Facility Start: 04-30-2023 End: 04-30-2023 ambulatory YUNIOR HUAGN PA-C Facility:A Start: 03-23-2022 End: 03-23-2022 Emergency department patient visit DIAZ RHOADESDEMARCUS Facility:[id number] Start: 09-15-2021 End: 09-15-2021 Subsequent hospital visit by physician Peggy Lei Work Phone: [facility] Procedures Date Procedure Procedure Detail Performing Clinician Start: 12-01-2016 Adult depression screening assessment Peggy Gama Phone: Plan of Treatment Date Care Activity Detail Author Start: 04-09-2023 Urine microalbumin profile DTA P,TDAP,TD (6 - Td or Tdap) [facility] Start: 02-03-2022 Influenza vaccination INFLUENZA (Sea son Ended) [facility] Start: 2018 CHLAMYDIA SCREENING (18-24) CHLAMYDIA SCREENING (18-24) [facility] Start: 2018 GC (GONORRHEA) SCREE PATRICK (18-24) GC (GONORRHEA) SCREENING (18-24) [facility] Start: 2018 HEPATITIS C SCREENING HEPATITIS C SC REENING [facility] Start: 2018 HIV SCREENING HIV SCREENING [facility] Start: 12-01-2017 Adult depression scr eening assessment DEPRESSION SCREENING [facility] Start: 2014 PEDS TO ADULT TRANSI TION ANNUAL ASSESSMENT PEDS TO ADULT TRANSITION ANNUAL ASSESSMENT [facility] Start: 2012 PEDS TO ADULT TRANSI TION INITIAL DISCUSSION PEDS TO ADULT TRANSITION INITIAL DISCUSSION [facility] Start: 2005 COVID-19 VACCINE (1) COVID-19 VACCIN E (1) [facility] Immunizations Immunization Date Immunization Notes Care Provider Michael hernandez 01-06-2017 hepatitis A vaccine, pediatric/adolescent dosage, 2 dose schedule Peggy Lei Work Phone: [facility] Work Phone: 01-06-2017 Human Papillomavirus 9-valent vaccine Peggy Lei Work Phone: [facility] Work Phone: 01-06-2017 meningococcal polysaccharide (groups A, C, Y and W-135) diphtheria toxoid conjugate vaccine (MCV4P) Peggy Carrascoh Work Phone: [facility] Work Phone: 08-16-2016 Human Papillomavirus 9-valent vaccine Peggy Lei Work Phone: [facility] 12-22-2015 hepatitis A vaccine, pediatric/adolescent dosage, 2 dose schedule Peggy Lei Work Phone: [facility] Work Phone: 12-22-2015 Human Papillomavirus 9-valent vaccine Peggy Carrascoh Work Phone: [facility] Work Phone: 12-22-2015 poliovirus vaccine, inactivated Peggy Lei Work Phone: [facility] Work Phone: 04-09-2013 influenza virus vacc ine, unspecified formulation Peggy Carrascoh Work Phone: [facility] Work Phone: 04-09-2013 meningococcal polysaccharide (groups A, C, Y and W-135) diphtheria toxoid conjugate vaccine (MCV4P) Peggy Carrascoh Work Phone: [facility] Work Phone: 04-09-2013 tetanus toxoid, redu marquise diphtheria toxoid, and acellular pertussis vaccine, adsorbed Peggy Carrascoh Work Phone: [facility] Work Phone: 03-04-2011 influenza virus vacc ine, unspecified formulation Peggy Carrascoh Work Phone: [facility] Work Phone: 10-06-2009 varicella virus vaccine Modetsa Carrascoh Work Phone: [facility] Work Phone: 04-22-2009 novel influenza-H1N1 -09, all formulations Peggy Langmuth Work Phone: [facility] Work Phone: 02-19-2006 haemophilus influenz ae type b vaccine, HbOC conjugate Peggy [facility] Work Phone: [facility] Work Phone: 01-16-2006 diphtheria, tetanus toxoids and acellular pertussis vaccine Peggy Carrascoh Work Phone: [facility] Work Phone: 04-19-2005 measles, mumps and rubella virus vaccine Peggy Langmuth Work Phone: [facility] Work Phone: 04-19-2005 varicella virus vaccine Modesta Langmuth Work Phone: [facility] Work Phone: 01-12-2005 pneumococcal Conjuga te, unspecified formulation Peggy Carrascoh Work Phone: [facility] Work Phone: 02-19-2002 poliovirus vaccine, inactivated Peggy Langmuth Work Phone: [facility] Work Phone: 2001 measles, mumps and rubella virus vaccine Peggy Langmuth Work Phone: [facility] Work Phone: 08-05-2001 diphtheria, tetanus toxoids and acellular pertussis vaccine Peggy Carrascoh Work Phone: [facility] Work Phone: 07-31-2001 hepatitis B vaccine, pediatric or pediatric/adolescent dosage Peggy Langmuth Work Phone: [facility] Work Phone: 05-09-2001 diphtheria, tetanus toxoids and acellular pertussis vaccine Peggy Lei Work Phone: [facility] Work Phone: 05-09-2001 haemophilus influenz ae type b vaccine, HbOC conjugate Peggy Lei Work Phone: [facility] Work Phone: 05-09-2001 poliovirus vaccine, inactivated Peggy Do Work Phone: [facility] Work Phone: 03-09-2001 diphtheria, tetanus toxoids and acellular pertussis vaccine Peggy Do Work Phone: [facility] Work Phone: 03-09-2001 haemophilus influenz ae type b vaccine, HbOC conjugate Peggy Carrascoh Work Phone: [facility] Work Phone: 03-09-2001 poliovirus vaccine, inactivated Peggy Do Work Phone: [facility] Work Phone: 01-31-2001 diphtheria, tetanus toxoids and acellular pertussis vaccine Peggy Do Work Phone: [facility] Work Phone: 01-31-2001 haemophilus influenz ae type b vaccine, HbOC conjugate Peggy Carrascoh Work Phone: [facility] Work Phone: 01-31-2001 hepatitis B vaccine, pediatric or pediatric/adolescent dosage Peggy Do Work Phone: [facility] Work Phone: 01-31-2001 poliovirus vaccine, inactivated Peggy Do Work Phone: [facility] Work Phone: 2000 hepatitis B vaccine, pediatric or pediatric/adolescent dosage Peggy Do Work Phone: [facility] Work Phone: Payers Date Payer Category Payer Unknown [id number] 2012 Medicaid [employer] [id number] 2012-Present [phone] [address] [place] [address] Medicaid [id number] 2012 Medicaid [id number] 1978 Unknown [id number] Social History Date Type Detail Facility Tobacco smoking status NHIS Never smoked tobacco [facility] Start: 06-07-2019 Alcohol intake Not Asked [facility] Start: 03-27-2015 Tobacco Comment step dad in house [facility] Start: 2000 Sex Assigned At Not on file C [facility] Summary Purpose Family History No [...] DATE CREATED AUTHOR AUTHOR'S ORGANIZ ATION 04/22/2021 [facility] DATE CREATED AUTHOR AUTHOR'S ORGANIZ ATION 06/23/2021 [facility] DATE CREATED AUTHOR AUTHOR'S ORGANIZ ATION 09/25/2021 [facility] DATE CREATED AUTHOR AUTHOR'S ORGANIZ ATION 03/28/2022 [facility] DATE CREATED AUTHOR AUTHOR'S ORGANIZ ATION 05/12/2023 [facility] ([place] Source Comments (unrecognize d section and content) In the event this informatio n is protected by the Federal Confidentiality of Alcohol and Drug Abuse Patient Records regulations: The Federal rules restrict any use of the information to criminally investigate or prosecute any alcohol or drug abuse patient.[facility] Care Teams (unrecognized sec tion [...] BE BASED ON THE PRIMARY CLINICAL RECORDS. [facility]. provides no warranty or guarantee of the accuracy or completeness of information in this document.
== END | disposition home or self-care (01) ==
LOC: LAB 16:26
PROVIDERS: Advanced Practice Midwife; Referring Provider Obstetrics & Gynecology; Visit Provider Obstetrics & Gynecology
DX: O26.859 Spotting complicating pregnancy, unspecified trimester (principal); Z3A.00 Weeks of gestation of pregnancy not specified
CPT/HCPCS: 36415; 84702

== ENCOUNTER → 2023-06-14 | Outpatient (CLI) | payer MEDICAID, SELFPAY ==
--- NOTE | 2023-06-14 12:46 | US_ITS ---
INDICATION: Amenorrhea EXAMINATION: Ultrasound US OB Transvaginal TECHNIQUE: Transabdominal pelvic ultrasound was performed. Grayscale, spectral waveform, and color flow Doppler evaluation of the adnexa. COMPARISON: March 27, 2023 LMP: [Unknown FINDINGS: UTERUS: 8.2 x 4.7 x 6.0 cm. RIGHT OVARY: 3.3 x 2.7 x 2.9 cm. There is a simple appearing right ovarian cyst measuring up to 2.2 x 1.9 x 2.2 cm. LEFT OVARY: The left ovary measures 2.1 x 2.1 x 2.0 cm. There are multiple peripherally located subcentimeter cysts within the left ovary. FREE FLUID: None. INTRAUTERINE GESTATIONAL SAC: Single. The mean sac diameter measures 1.02 cm. YOLK SAC: Identified POLE: Identified. The crown-rump length measures 0.42 cm . ESTIMATED GESTATION AGE: 6 weeks and 2 days. HEART MOTION: 113 bpm. PLACENTA: Not visualized due to age. SUBCHORIONIC HEMORRHAGE: None. AMNIOTIC FLUID: Qualitatively normal. US/Transvaginal w/Preg US IMPRESSION: Single live intrauterine . Estimated gestational age is 6 weeks and 2 days. Simple right ovarian cyst measuring up to 2.2 cm. Peripherally located subcentimeter cysts within the left ovary, in the appropriate clinical setting may be secondary to polycystic ovarian syndrome. Electronically Signed: Jeanne Musa MD at 14:41 EST ,
--- OUTSIDE RECORDS SUMMARY | 2023-06-14 13:14 | XMS RPT_ITS | CCD ---
Author Name Unknown Address [address] [place] [address] Organization [facility] Care Team Providers Care Toe Puncher Name Role Phone DoPeggyborn Primary Care Provider 1( [phone] DIAZ LEPE Attending YUNIOR Quezada PA-C Attending NOHELIA Sanchez MD. Primary Care Unavailable Allergies Allergy Classification Reported Allergen(s) Allergy Type Date of Onset Reaction(s) Facility (2 sources) Acetaminophen; Translations: [ACETAMINOPHEN] Drug Allergy 01-09-2019 [facility] Work Phone: Medications Completed/Discontinued Medications Medication Drug [...] 03-23-2022 Emergency department patient visit DIAZ RHOADESDEMARCUS Facility:[id number] Start: 09-15-2021 End: 09-15-2021 Subsequent hospital visit by physician Peggy Lei Work Phone: [facility] Procedures Date Procedure Procedure Detail Performing Clinician Start: 12-01-2016 Adult depression screening assessment Peggy Gama Phone: Plan of Treatment Date Care Activity Detail Author Start: 04-09-2023 Urine microalbumin profile DTA P,TDAP,TD (6 - Td or Tdap) [facility] Start: 02-03-2022 Influenza vaccination INFLUENZA (Sea son Ended) [facility] Start: 2018 CHLAMYDIA SCREENING (18-24) CHLAMYDIA SCREENING (18-24) [facility] Start: 2018 GC (GONORRHEA) SCREE PATRICK (18-24) GC (GONORRHEA) SCREENING (18-24) [facility] Start: 2018 HEPATITIS C SCREENING HEPATITIS C SC REENING [facility] Start: 2018 HIV SCREENING HIV SCREENING [facility] Start: 12-01-2017 Adult depression scr eening assessment DEPRESSION SCREENING [facility] Start: 2014 PEDS TO ADULT TRANSI TION ANNUAL ASSESSMENT PEDS TO ADULT TRANSITION ANNUAL ASSESSMENT [facility] Start: 2012 PEDS TO ADULT TRANSI TION INITIAL DISCUSSION PEDS TO ADULT TRANSITION INITIAL DISCUSSION [facility] Start: 2005 COVID-19 VACCINE (1) COVID-19 VACCIN E (1) [facility] Immunizations Immunization Date Immunization Notes Care Provider Michael hernandez 01-06-2017 hepatitis A vaccine, pediatric/adolescent dosage, 2 dose schedule Peggy Lei Work Phone: [facility] Work Phone: 01-06-2017 Human Papillomavirus 9-valent vaccine Peggy Lei Work Phone: [facility] Work Phone: 01-06-2017 meningococcal polysaccharide (groups A, C, Y and W-135) diphtheria toxoid conjugate vaccine (MCV4P) Peggy Carrascoh Work Phone: [facility] Work Phone: 08-16-2016 Human Papillomavirus 9-valent vaccine Peggy Lei Work Phone: [facility] 12-22-2015 hepatitis A vaccine, pediatric/adolescent dosage, 2 dose schedule Peggy Lei Work Phone: [facility] Work Phone: 12-22-2015 Human Papillomavirus 9-valent vaccine Peggy Carrascoh Work Phone: [facility] Work Phone: 12-22-2015 poliovirus vaccine, inactivated Peggy Lei Work Phone: [facility] Work Phone: 04-09-2013 influenza virus vacc ine, unspecified formulation Peggy Carrascoh Work Phone: [facility] Work Phone: 04-09-2013 meningococcal polysaccharide (groups A, C, Y and W-135) diphtheria toxoid conjugate vaccine (MCV4P) Peggy Carrascoh Work Phone: [facility] Work Phone: 04-09-2013 tetanus toxoid, redu marquise diphtheria toxoid, and acellular pertussis vaccine, adsorbed Peggy Carrascoh Work Phone: [facility] Work Phone: 03-04-2011 influenza virus vacc ine, unspecified formulation Peggy Carrascoh Work Phone: [facility] Work Phone: 10-06-2009 varicella virus vaccine Modesta Carrascoh Work Phone: [facility] Work Phone: 04-22-2009 novel influenza-H1N1 -09, all formulations Peggy Langmuth Work Phone: [facility] Work Phone: 02-19-2006 haemophilus influenz ae type b vaccine, HbOC conjugate Peggy [facility] Work Phone: [facility] Work Phone: 01-16-2006 diphtheria, tetanus toxoids and acellular pertussis vaccine Peggy Carrascoh Work Phone: [facility] Work Phone: 04-19-2005 measles, mumps and rubella virus vaccine Peggy Langmuth Work Phone: [facility] Work Phone: 04-19-2005 varicella virus vaccine Modesta Langmuth Work Phone: [facility] Work Phone: 01-12-2005 pneumococcal Conjuga te, unspecified formulation Peggy Carrascoh Work Phone: [facility] Work Phone: 02-19-2002 poliovirus vaccine, inactivated Peggy Langmuth Work Phone: [facility] Work Phone: 2001 measles, mumps and rubella virus vaccine Peggy Langmuth Work Phone: [facility] Work Phone: 08-05-2001 diphtheria, tetanus toxoids and acellular pertussis vaccine Peggy Carrascoh Work Phone: [facility] Work Phone: 07-31-2001 hepatitis B vaccine, pediatric or pediatric/adolescent dosage Peggy Langmuth Work Phone: [facility] Work Phone: 05-09-2001 diphtheria, tetanus toxoids and acellular pertussis vaccine Peggy Lei Work Phone: [facility] Work Phone: 05-09-2001 haemophilus influenz ae type b vaccine, HbOC conjugate Peggy Lei Work Phone: [facility] Work Phone: 05-09-2001 poliovirus vaccine, inactivated Peggy Do Work Phone: [facility] Work Phone: 03-09-2001 diphtheria, tetanus toxoids and acellular pertussis vaccine Peggy Do Work Phone: [facility] Work Phone: 03-09-2001 haemophilus influenz ae type b vaccine, HbOC conjugate Peggy Carrascoh Work Phone: [facility] Work Phone: 03-09-2001 poliovirus vaccine, inactivated Peggy Do Work Phone: [facility] Work Phone: 01-31-2001 diphtheria, tetanus toxoids and acellular pertussis vaccine Peggy Do Work Phone: [facility] Work Phone: 01-31-2001 haemophilus influenz ae type b vaccine, HbOC conjugate Peggy Carrascoh Work Phone: [facility] Work Phone: 01-31-2001 hepatitis B vaccine, pediatric or pediatric/adolescent dosage Peggy Do Work Phone: [facility] Work Phone: 01-31-2001 poliovirus vaccine, inactivated Peggy Do Work Phone: [facility] Work Phone: 2000 hepatitis B vaccine, pediatric or pediatric/adolescent dosage Peggy Do Work Phone: [facility] Work Phone: Payers Date Payer Category Payer Unknown [id number] 2012 Medicaid [employer] [id number] 2012-Present [phone] [address] [place] [address] Medicaid [id number] 2012 Medicaid [id number] 1978 Unknown [id number] Social History Date Type Detail Facility Tobacco smoking status NHIS Never smoked tobacco [facility] Start: 06-07-2019 Alcohol intake Not Asked [facility] Start: 03-27-2015 Tobacco Comment step dad in house [facility] Start: 2000 Sex Assigned At Not on file [facility] Summary Purpose Family History No Family [...] DATE CREATED AUTHOR AUTHOR'S ORGANIZ ATION 04/22/2021 [facility] DATE CREATED AUTHOR AUTHOR'S ORGANIZ ATION 06/23/2021 [facility] DATE CREATED AUTHOR AUTHOR'S ORGANIZ ATION 09/25/2021 [facility] DATE CREATED AUTHOR AUTHOR'S ORGANIZ ATION 03/28/2022 [facility] DATE CREATED AUTHOR AUTHOR'S ORGANIZ ATION 05/12/2023 [facility] ([place]) Source Comments (unrecognize d section and content) In the event this informatio n is protected by the Federal Confidentiality of Alcohol and Drug Abuse Patient Records regulations: The Federal rules restrict any use of the information to criminally investigate or prosecute any alcohol or drug abuse patient.[facility] Care Teams (unrecognized sec tion [...] BE BASED ON THE PRIMARY CLINICAL RECORDS. [email or web address]. provides no warranty or guarantee of the accuracy or completeness of information in this document.
== END | disposition home or self-care (01) ==
LOC: US 12:42
PROVIDERS: Referring Provider Obstetrics & Gynecology; Visit Provider Obstetrics & Gynecology
DX: N91.2 Amenorrhea, unspecified (principal)
CPT/HCPCS: 76817

== ENCOUNTER → 2023-06-26 | Outpatient (CLI) | payer MEDICAID, SELFPAY ==
--- OUTSIDE RECORDS SUMMARY | 2023-06-26 17:17 | XMS RPT_ITS | CCD ---
Author Name Unknown Address [address] [place] [address] Organization [facility] Care Team Providers Care Service Developer Name Role Phone DoPeggyborn Primary Care Provider DIAZ LEPE Attending YUNIOR Quezada PA-C Attending NOHELIA Sanchez MD. Primary Care Unavailable Allergies Allergy Classification Reported Allergen(s) Allergy Type Date of Onset Reaction(s) Facility (2 sources) Acetaminophen; Translations: [ACETAMINOPHEN] Drug Allergy 01-09-2019 [facility] Work Phone: Medications Completed/Discontinued Medications [...] left ankle, unspecified ligament, initial encounter] Onset: 03-23-2022 Episodic Past or Other Problems Problem Classification [...] 03-23-2022 Emergency department patient visit DIAZ RHOADESDEMARCUS Facility:[id number] Start: 09-15-2021 End: 09-15-2021 Subsequent hospital visit by physician Peggy Lei Work Phone: [facility] Procedures Date Procedure Procedure Detail Performing Clinician Start: 12-01-2016 Adult depression screening assessment Peggy Lei Work Phone: Plan of Treatment Date Care Activity Detail Author Start: 04-09-2023 Urine microalbumin profile DTA P,TDAP,TD (6 - Td or Tdap) [facility] Start: 02-03-2022 Influenza vaccination INFLUENZA (Sea son Ended) [facility] Start: 2018 CHLAMYDIA SCREENING (18-24) CHLAMYDIA SCREENING (18-24) [facility] Start: 2018 GC (GONORRHEA) SCREE PATRICK (18-24) GC (GONORRHEA) SCREENING (18-24) [facility] Start: 2018 HEPATITIS C SCREENING HEPATITIS C SC REENING [facility] Start: 2018 HIV SCREENING HIV SCREENING [facility] Start: 12-01-2017 Adult depression scr eening assessment DEPRESSION SCREENING [facility] Start: 2014 PEDS TO ADULT TRANSI TION ANNUAL ASSESSMENT PEDS TO ADULT TRANSITION ANNUAL ASSESSMENT [facility] Start: 2012 PEDS TO ADULT TRANSI TION INITIAL DISCUSSION PEDS TO ADULT TRANSITION INITIAL DISCUSSION [facility] Start: 2005 COVID-19 VACCINE (1) COVID-19 VACCIN E (1) [facility] Immunizations Immunization Date Immunization Notes Care Provider Michael hernandez 01-06-2017 hepatitis A vaccine, pediatric/adolescent dosage, 2 dose schedule Peggy Lei Work Phone: [facility] Work Phone: 01-06-2017 Human Papillomavirus 9-valent vaccine Peggy Lei Work Phone: [facility] Work Phone: 01-06-2017 meningococcal polysaccharide (groups A, C, Y and W-135) diphtheria toxoid conjugate vaccine (MCV4P) Peggy Carrascoh Work Phone: [facility] Work Phone: 08-16-2016 Human Papillomavirus 9-valent vaccine Peggy Lei Work Phone: [facility] 12-22-2015 hepatitis A vaccine, pediatric/adolescent dosage, 2 dose schedule Peggy Lei Work Phone: [facility] Work Phone: 12-22-2015 Human Papillomavirus 9-valent vaccine Peggy Carrascoh Work Phone: [facility] Work Phone: 12-22-2015 poliovirus vaccine, inactivated Peggy Lei Work Phone: [facility] Work Phone: 04-09-2013 influenza virus vacc ine, unspecified formulation Peggy Carrascoh Work Phone: [facility] Work Phone: 04-09-2013 meningococcal polysaccharide (groups A, C, Y and W-135) diphtheria toxoid conjugate vaccine (MCV4P) Peggy Carrascoh Work Phone: [facility] Work Phone: 04-09-2013 tetanus toxoid, redu marquise diphtheria toxoid, and acellular pertussis vaccine, adsorbed Peggy Langmuth Work Phone: [facility] Work Phone: 03-04-2011 influenza virus vacc ine, unspecified formulation Peggy Carrascoh Work Phone: [facility] Work Phone: 10-06-2009 varicella virus vaccine Modesta Carrascoh Work Phone: [facility] Work Phone: 04-22-2009 novel influenza-H1N1 -09, all formulations Peggy Langmuth Work Phone: [facility] Work Phone: 02-19-2006 haemophilus influenz ae type b vaccine, HbOC conjugate Peggy [facility] Work Phone: [facility] Work Phone: 01-16-2006 diphtheria, tetanus toxoids and acellular pertussis vaccine Peggy Carrascoh Work Phone: [facility] Work Phone: 04-19-2005 measles, mumps and rubella virus vaccine Peggy Carrascoh Work Phone: [facility] Work Phone: 04-19-2005 varicella virus vaccine Modesta Carrascoh Work Phone: [facility] Work Phone: 01-12-2005 pneumococcal Conjuga te, unspecified formulation Peggy Carrascoh Work Phone: [facility] Work Phone: 02-19-2002 poliovirus vaccine, inactivated Peggy Langmuth Work Phone: [facility] Work Phone: 2001 measles, mumps and rubella virus vaccine Peggy Langmuth Work Phone: [facility] Work Phone: 08-05-2001 diphtheria, tetanus toxoids and acellular pertussis vaccine Peggy Carrascoh Work Phone: [facility] Work Phone: 07-31-2001 hepatitis B vaccine, pediatric or pediatric/adolescent dosage Peggy Carrascoh Work Phone: [facility] Work Phone: 05-09-2001 diphtheria, tetanus toxoids and acellular pertussis vaccine Peggy Lei Work Phone: [facility] Work Phone: 05-09-2001 haemophilus influenz ae type b vaccine, HbOC conjugate Peggy Lei Work Phone: [facility] Work Phone: 05-09-2001 poliovirus vaccine, inactivated Peggy Do Work Phone: [facility] Work Phone: 03-09-2001 diphtheria, tetanus toxoids and acellular pertussis vaccine Peggy Do Work Phone: [facility] Work Phone: 03-09-2001 haemophilus influenz ae type b vaccine, HbOC conjugate Peggy Carrascoh Work Phone: [facility] Work Phone: 03-09-2001 poliovirus vaccine, inactivated Peggy Do Work Phone: [facility] Work Phone: 01-31-2001 diphtheria, tetanus toxoids and acellular pertussis vaccine Peggy Do Work Phone: [facility] Work Phone: 01-31-2001 haemophilus influenz ae type b vaccine, HbOC conjugate Peggy Carrascoh Work Phone: [facility] Work Phone: 01-31-2001 hepatitis B vaccine, pediatric or pediatric/adolescent dosage Peggy Do Work Phone: [facility] Work Phone: 01-31-2001 poliovirus vaccine, inactivated Peggy Do Work Phone: [facility] Work Phone: 2000 hepatitis B vaccine, pediatric or pediatric/adolescent dosage Peggy Do Work Phone: [facility] Work Phone: Payers Date Payer Category Payer Unknown [id number] 2012 Medicaid [employer] [id number] 2012-Present [phone] [address] [place] [address] Medicaid [id number] 2012 Medicaid [id number] 1978 Unknown [id number] Social History Date Type Detail Facility Tobacco smoking status NHIS Never smoked tobacco [facility] Start: 06-07-2019 Alcohol intake Not Asked [facility] Start: 03-27-2015 Tobacco Comment step dad in house [facility] Start: 2000 [facility] Family History No Family [...] CREATED AUTHOR AUTHOR'S ORGANIZ ATION 04/22/2021 [facility] DATE CREATED AUTHOR AUTHOR'S ORGANIZ ATION 06/23/2021 [facility] DATE CREATED AUTHOR AUTHOR'S ORGANIZ ATION 09/25/2021 [facility] DATE CREATED AUTHOR AUTHOR'S ORGANIZ ATION 03/28/2022 [facility] DATE CREATED AUTHOR AUTHOR'S ORGANIZ ATION 05/12/2023 [facility] Source Comments (unrecognize d section and content) In the event this informatio n is protected by the Federal Confidentiality of Alcohol and Drug Abuse Patient Records regulations: The Federal rules restrict any use of the information to criminally investigate or prosecute any alcohol or drug abuse patient.[facility] Care Teams (unrecognized sec tion and content) [...] ON THE PRIMARY CLINICAL RECORDS. [facility]. provides no warranty or guarantee of the accuracy or completeness of information in this document.
[2023-06-29 21:07] LABS: Chlamydia By Nucleic Acid AMP Negative (Negative); Gonococcus By Nucleic Acid AMP Negative (Negative)
== END | disposition home or self-care (01) ==
PROVIDERS: Visit Provider Obstetrics & Gynecology
DX: Z34.90 Encounter for supervision of normal pregnancy, unspecified, unspecified trimester (principal)
CPT/HCPCS: 87086; 87088; 87491; 87591

== ENCOUNTER 2023-07-11 16:29 | Outpatient (CLI) | payer MEDICAID, SELFPAY ==
[2023-07-11 17:18] LABS: Absolute Lymphocyte Count 1.88 X10^3/uL (0.83-4.51); Absolute Neutrophil Count 3.8 X10^3/uL (2.0-7.7); Basophil# 0.03 X10^3/uL; Basophil% 0.5 % (0-1); Eosinophil# 0.05 X10^3/uL; Eosinophils% 0.8 % (0-5); Hematocrit 40.7 % (37-47); Hemoglobin 14.3 g/dL (12.0-15.0); Lymphocyte # 1.88 X10^3/ul (0.83-4.51); Lymphocyte % 29.9 % (19-41); Mean Corp Hgb Conc 35.1 g/dL (32-36); Mean Corpuscular Hgb 29.9 pg (27.0-32.0); Mean Platelet Vol. 9.5 fl (6.2-12.0); Monocyte# 0.47 X10^3/uL; Monocyte% 7.5 % (0-10); NRBC Flagged by Analyzer 0 % (0-5); Neutrophil # 3.84 X10^3/uL (2.7-7.7); Platelet Count 345 K/mm3 (150-450); RBC Distribution Width CV 12.1 % (11.6-14.6); RBC Distribution Width SD 37.6 fl (35.1-43.9); Red Blood Count 4.79 M/mm3 (4.2-5.4); White Blood Count 6.3 K/mm3 (4.4-11.0)
[2023-07-11 17:51] LABS: Hemoglobin A1c 4.6 % (3.8-5.6)
[2023-07-11 18:29] LABS: HIV - WCH Non-Reactive (Nonreactive); Hepatitis B Surface Antigen Non-Reactive (Nonreactive); Hepatitis C Antibody Non-Reactive (Nonreactive); Rubella IgG Reactive (Nonreactive); Syphilis Antibodies Non-reactive
--- OUTSIDE RECORDS SUMMARY | 2023-07-11 19:54 | XMS RPT_ITS | CCD ---
Author Name Unknown Address [address] [place] [address] Organization [facility] Care Team Providers Care Hose Tester Name Role Phone DoPeggyborn Primary Care Provider DAIZ LEPE Attending YUNIOR Quezada PA-C Attending NOHELIA Sanchez MD. Primary Care Unavailable Allergies Allergy Classification Reported Allergen(s) Allergy Type Date of Onset Reaction(s) Facility (2 sources) Acetaminophen; Translations: [ACETAMINOPHEN] Drug Allergy 01-09-2019 [facility] Work Phone: Medications Completed/Discontinued Medications Medication [...] 03-23-2022 Emergency department patient visit DIAZ RHOADESDEMARCUS Facility:[id number] Start: 09-15-2021 End: 09-15-2021 Subsequent hospital visit by physician Peggy Lei Work Phone: [facility] Procedures Date Procedure Procedure Detail Performing Clinician Start: 12-01-2016 Adult depression screening assessment Peggy Lei Work Phone: Plan of Treatment Date Care Activity Detail Author Start: 04-09-2023 Urine microalbumin profile DTA P,TDAP,TD (6 - Td or Tdap) [facility] Start: 02-03-2022 Influenza vaccination INFLUENZA (Sea son Ended) [facility] Start: 2018 CHLAMYDIA SCREENING (18-24) CHLAMYDIA SCREENING (18-24) [facility] Start: 2018 GC (GONORRHEA) SCREE PATRICK (18-24) GC (GONORRHEA) SCREENING (18-24) [facility] Start: 2018 HEPATITIS C SCREENING HEPATITIS C SC REENING [facility] Start: 2018 HIV SCREENING HIV SCREENING [facility] Start: 12-01-2017 Adult depression scr eening assessment DEPRESSION SCREENING [facility] Start: 2014 PEDS TO ADULT TRANSI TION ANNUAL ASSESSMENT PEDS TO ADULT TRANSITION ANNUAL ASSESSMENT [facility] Start: 2012 PEDS TO ADULT TRANSI TION INITIAL DISCUSSION PEDS TO ADULT TRANSITION INITIAL DISCUSSION [facility] Start: 2005 COVID-19 VACCINE (1) COVID-19 VACCIN E (1) [facility] Immunizations Immunization Date Immunization Notes Care Provider Michael hernandez 01-06-2017 hepatitis A vaccine, pediatric/adolescent dosage, 2 dose schedule Peggy Lei Work Phone: [facility] Work Phone: 01-06-2017 Human Papillomavirus 9-valent vaccine Peggy Lei Work Phone: [facility] Work Phone: 01-06-2017 meningococcal polysaccharide (groups A, C, Y and W-135) diphtheria toxoid conjugate vaccine (MCV4P) Peggy Carrascoh Work Phone: [facility] Work Phone: 08-16-2016 Human Papillomavirus 9-valent vaccine Peggy Lei Work Phone: [facility] 12-22-2015 hepatitis A vaccine, pediatric/adolescent dosage, 2 dose schedule Peggy Lei Work Phone: [facility] Work Phone: 12-22-2015 Human Papillomavirus 9-valent vaccine Peggy Carrascoh Work Phone: [facility] Work Phone: 12-22-2015 poliovirus vaccine, inactivated Peggy Lei Work Phone: [facility] Work Phone: 04-09-2013 influenza virus vacc ine, unspecified formulation Peggy Carrascoh Work Phone: [facility] Work Phone: 04-09-2013 meningococcal polysaccharide (groups A, C, Y and W-135) diphtheria toxoid conjugate vaccine (MCV4P) Peggy Carrascoh Work Phone: [facility] Work Phone: 04-09-2013 tetanus toxoid, redu marquise diphtheria toxoid, and acellular pertussis vaccine, adsorbed Peggy Langmuth Work Phone: [facility] Work Phone: 03-04-2011 influenza virus vacc ine, unspecified formulation Peggy Carrascoh Work Phone: [facility] Work Phone: 10-06-2009 varicella virus vaccine Modesta Carrascoh Work Phone: [facility] Work Phone: 04-22-2009 novel influenza-H1N1 -09, all formulations Peggy Langmuth Work Phone: [facility] Work Phone: 02-19-2006 haemophilus influenz ae type b vaccine, HbOC conjugate Peggy [facility] Work Phone: [facility] Work Phone: 01-16-2006 diphtheria, tetanus toxoids and acellular pertussis vaccine Peggy Carrascoh Work Phone: [facility] Work Phone: 04-19-2005 measles, mumps and rubella virus vaccine Peggy Carrascoh Work Phone: [facility] Work Phone: 04-19-2005 varicella virus vaccine Modesta Carrascoh Work Phone: [facility] Work Phone: 01-12-2005 pneumococcal Conjuga te, unspecified formulation Peggy Carrascoh Work Phone: [facility] Work Phone: 02-19-2002 poliovirus vaccine, inactivated Peggy Langmuth Work Phone: [facility] Work Phone: 2001 measles, mumps and rubella virus vaccine Peggy Langmuth Work Phone: [facility] Work Phone: 08-05-2001 diphtheria, tetanus toxoids and acellular pertussis vaccine Peggy Carrascoh Work Phone: [facility] Work Phone: 07-31-2001 hepatitis B vaccine, pediatric or pediatric/adolescent dosage Peggy Carrascoh Work Phone: [facility] Work Phone: 05-09-2001 diphtheria, tetanus toxoids and acellular pertussis vaccine Peggy Lei Work Phone: [facility] Work Phone: 05-09-2001 haemophilus influenz ae type b vaccine, HbOC conjugate Peggy Lei Work Phone: [facility] Work Phone: 05-09-2001 poliovirus vaccine, inactivated Peggy Do Work Phone: [facility] Work Phone: 03-09-2001 diphtheria, tetanus toxoids and acellular pertussis vaccine Peggy Do Work Phone: [facility] Work Phone: 03-09-2001 haemophilus influenz ae type b vaccine, HbOC conjugate Peggy Carrascoh Work Phone: [facility] Work Phone: 03-09-2001 poliovirus vaccine, inactivated Peggy Do Work Phone: [facility] Work Phone: 01-31-2001 diphtheria, tetanus toxoids and acellular pertussis vaccine Peggy Do Work Phone: [facility] Work Phone: 01-31-2001 haemophilus influenz ae type b vaccine, HbOC conjugate Peggy Carrascoh Work Phone: [facility] Work Phone: 01-31-2001 hepatitis B vaccine, pediatric or pediatric/adolescent dosage Peggy Do Work Phone: [facility] Work Phone: 01-31-2001 poliovirus vaccine, inactivated Peggy Do Work Phone: [facility] Work Phone: 2000 hepatitis B vaccine, pediatric or pediatric/adolescent dosage Peggy Do Work Phone: [facility] Work Phone: Payers Date Payer Category Payer Unknown [id number] 2012 Medicaid [employer] [id number] 2012-Present [phone] [address] [place] [address] Medicaid [id number] 2012 Medicaid [id number] 1978 Unknown [id number] Social History Date Type Detail Facility Tobacco smoking status NHIS Never smoked tobacco [facility] Start: 06-07-2019 Alcohol intake Not Asked [facility] Start: 03-27-2015 Tobacco Comment step dad in house [facility] Start: 2000 [facility]igned At [facility] Summary Purpose Family History No [...] DATE CREATED AUTHOR AUTHOR'S ORGANIZ ATION 04/22/2021 [facility] DATE CREATED AUTHOR AUTHOR'S ORGANIZ ATION 06/23/2021 [facility] DATE CREATED AUTHOR AUTHOR'S ORGANIZ ATION 09/25/2021 [facility] DATE CREATED AUTHOR AUTHOR'S ORGANIZ ATION 03/28/2022 [facility] DATE CREATED AUTHOR AUTHOR'S ORGANIZ ATION 05/12/2023 [facility] Source Comments (unrecognize d section and content) In the event this informatio n is protected by the Federal Confidentiality of Alcohol and Drug Abuse Patient Records regulations: The Federal rules restrict any use of the information to criminally investigate or prosecute any alcohol or drug abuse patient.[facility] Care Teams (unrecognized sec tion and [...] BE BASED ON THE PRIMARY CLINICAL RECORDS. [facility]. provides no warranty or guarantee of the accuracy or completeness of information in this document.
== END 2023-07-11 23:59 | disposition home or self-care (01) ==
LOC: LAB 16:30
PROVIDERS: Referring Provider Obstetrics & Gynecology; Visit Provider Obstetrics & Gynecology
DX: Z34.90 Encounter for supervision of normal pregnancy, unspecified, unspecified trimester (principal)
CPT/HCPCS: 83036; 85025; 86703; 86762; 86780; 86803; 86850; 86900; 86901; 87340

== ENCOUNTER → 2023-08-23 | Outpatient (CLI) | payer MEDICAID, SELFPAY ==
[2023-08-29 12:09] LABS: AFP MoM Value 0.96 (.); AFP Value-EIA 22.6 ng/mL (.); Comment Report (.); DIA MoM Value 0.79 (.); DIA Value-EIA 108.56 pg/mL (.); DSR (By Age) 1097 (.); DSR (Second Trimester) 10000 (.); Gestat. Age Based On As provided (.); Insulin Dep Diabetes No (.); Maternal Age At EDD 23.2 yr (.); hCG MoM 0.34 (.); hCG Value 16162 mIU/mL (.)
== END | disposition home or self-care (01) ==
LOC: LAB 13:31
PROVIDERS: Referring Provider Advanced Practice Midwife; Visit Provider Advanced Practice Midwife
DX: Z36.9 Encounter for antenatal screening, unspecified (principal)
CPT/HCPCS: 36415; 82105; 82677; 84702

== ENCOUNTER 2023-11-13 10:36 | Outpatient (CLI) | payer MEDICAID, SELFPAY ==
[2023-11-13 12:24] LABS: Absolute Lymphocyte Count 1.39 X10^3/uL (0.83-4.51); Absolute Neutrophil Count 4.5 X10^3/uL (2.0-7.7); Basophil# 0.02 X10^3/uL; Basophil% 0.3 % (0-1); Eosinophil# 0.05 X10^3/uL; Eosinophils% 0.8 % (0-5); Hematocrit 38.6 % (37-47); Hemoglobin 13.1 g/dL (12.0-15.0); Lymphocyte # 1.39 X10^3/ul (0.83-4.51); Lymphocyte % 21.7 % (19-41); Mean Corp Hgb Conc 33.9 g/dL (32-36); Mean Corpuscular Hgb 30.3 pg (27.0-32.0); Mean Corpuscular Volume 89.1 fL (81-99); Monocyte# 0.38 X10^3/uL; Monocyte% 5.9 % (0-10); NRBC Flagged by Analyzer 0 % (0-5); Neutrophil # 4.54 X10^3/uL (2.7-7.7); Neutrophil % 70.7 % (47-70); Platelet Count 312 K/mm3 (150-450); RBC Distribution Width CV 12.8 % (11.6-14.6); RBC Distribution Width SD 41.3 fl (35.1-43.9); Red Blood Count 4.33 M/mm3 (4.2-5.4); White Blood Count 6.4 K/mm3 (4.4-11.0)
[2023-11-13 12:32] LABS: Glucose Challenge Gest 1H 50g 149 mg/dL (70-140)
[2023-11-13 12:59] LABS: HIV - WCH Non-Reactive (Nonreactive); Syphilis Antibodies Non-reactive; Vitamin D,25 Hydroxy 35.7 ng/mL
== END 2023-11-13 23:59 | disposition home or self-care (01) ==
LOC: LAB 10:38
PROVIDERS: Referring Provider Nurse Practitioner Women's Health; Visit Provider Nurse Practitioner Women's Health
DX: Z34.90 Encounter for supervision of normal pregnancy, unspecified, unspecified trimester (principal); Z3A.24 24 weeks gestation of pregnancy
CPT/HCPCS: 36415; 82306; 82950; 85025; 86703; 86780

== ENCOUNTER → 2023-11-24 | Outpatient (CLI) | payer MEDICAID, SELFPAY ==
[2023-11-24 08:04] LABS: Glucose GTT-Gestation. Fasting 103 mg/dL (<105)
[2023-11-24 08:33] LABS: Glucose GTT-Gestational 1 Hr 167 mg/dL (<190)
[2023-11-24 09:17] LABS: Glucose GTT-Gestational 2 Hr 129 mg/dL (<165)
[2023-11-24 10:41] LABS: Glucose GTT-Gestational 3 Hr 108 L (<145)
== END | disposition home or self-care (01) ==
LOC: LAB 06:48
PROVIDERS: Referring Provider Advanced Practice Midwife; Visit Provider Advanced Practice Midwife
DX: Z13.1 Encounter for screening for diabetes mellitus (principal)
CPT/HCPCS: 36415; 82951; 82952

== ENCOUNTER → 2024-01-10 | Outpatient (CLI) | payer MEDICAID, SELFPAY | END | disposition home or self-care (01) | PROVIDERS: Referring Provider Nurse Practitioner Women's Health; Visit Provider Nurse Practitioner Women's Health | DX: O09.93 Supervision of high risk pregnancy, unspecified, third trimester (principal); Z3A.00 Weeks of gestation of pregnancy not specified | CPT/HCPCS: 87081 ==

== ENCOUNTER → 2024-01-22 | Outpatient (CLI) | payer MEDICAID, SELFPAY ==
--- NOTE | 2024-01-22 09:02 | US_ITS ---
INDICATION: decreased movement. EXAMINATION: Ultrasound US Biophysical Profile W/O Nonst TECHNIQUE: Transabdominal pelvic ultrasound was performed. COMPARISON: June 26, 2023 FINDINGS: INTRAUTERINE GESTATION(s): Single. HEART MOTION is 143 bpm. AMNIOTIC FLUID INDEX (FOREST): 17.08 cm ESTIMATED WEIGHT: Percentile %. BIOPHYSICAL PROFILE (BPP): 01/10 -- Breathin/2. -- Movement: 2/2. -- Tone: 2/2. --FOREST: 2/2. PRESENTATION: Cephalic PLACENTA: Fundal. US/Biophysical Prof W/O Non Stres IMPRESSION: Single live intrauterine with a biophysical profile 01/10. Electronically Signed: Jeanne Musa MD at 10:36 EDT ,
== END | disposition home or self-care (01) ==
LOC: OPUS 09:02
PROVIDERS: Referring Provider Obstetrics & Gynecology; Visit Provider Obstetrics & Gynecology
DX: O36.8190 Decreased fetal movements, unspecified trimester, not applicable or unspecified (principal); Z3A.00 Weeks of gestation of pregnancy not specified
CPT/HCPCS: 76819

== ENCOUNTER 2024-01-31 16:45 | Inpatient (IN) | payer MEDICAID, SELFPAY ==
[2024-01-31] VITALS (18 sets, daily range): BP systolic 130–169; BP diastolic 83–105; PULSE 89–126; RESP 16–18; TEMP 36.6–37.4; O2SAT 95–100; BMI 39.7
[2024-01-31 15:18] LABS: Hematocrit 38.9 % (37-47); Hemoglobin 13.8 g/dL (12.0-15.0); Mean Corp Hgb Conc 35.5 g/dL (32-36); Mean Corpuscular Hgb 30.3 pg (27.0-32.0); Mean Corpuscular Volume 85.3 fL (81-99); Mean Platelet Vol. 10.8 fl (6.2-12.0); Platelet Count 267 K/mm3 (150-450); RBC Distribution Width CV 12.8 % (11.6-14.6); RBC Distribution Width SD 39.3 fl (35.1-43.9); Red Blood Count 4.56 M/mm3 (4.2-5.4); White Blood Count 7.1 K/mm3 (4.4-11.0)
[2024-01-31 15:50] LABS: AST(SGOT) 12 U/L (15-37); Alanine Aminotransfer ALT/SGPT 12 U/L (13-56); Creatinine, Serum 0.62 mg/dL (0.55-1.02); EST Glomerular Filtration Rate 125 mL/min (>60); Est Glom Filt Rate - Afr Amer 152 mL/min (>60); Estimated Creatinine Clearance 166.77 ml/min; Uric Acid 5.3 mg/dL (2.6-6.0)
[2024-01-31] MEDS: Lactated Ringers 1,000 ML 50 ML IV (18:00)
[2024-01-31 18:22] LABS: Absolute Lymphocyte Count 1.78 X10^3/uL (0.83-4.51); Absolute Neutrophil Count 4.9 X10^3/uL (2.0-7.7); Basophil# 0.04 X10^3/uL; Basophil% 0.5 % (0-1); Eosinophil# 0.03 X10^3/uL; Eosinophils% 0.4 % (0-5); Hematocrit 40.7 % (37-47); Hemoglobin 14.3 g/dL (12.0-15.0); Lymphocyte # 1.78 X10^3/ul (0.83-4.51); Lymphocyte % 23.9 % (19-41); Mean Corp Hgb Conc 35.1 g/dL (32-36); Mean Corpuscular Hgb 29.8 pg (27.0-32.0); Mean Corpuscular Volume 84.8 fL (81-99); Mean Platelet Vol. 10.9 fl (6.2-12.0); Monocyte# 0.72 X10^3/uL; Monocyte% 9.7 % (0-10); NRBC Flagged by Analyzer 0 % (0-5); Neutrophil # 4.85 X10^3/uL (2.7-7.7); Neutrophil % 65.1 % (47-70); Platelet Count 281 K/mm3 (150-450); RBC Distribution Width CV 12.9 % (11.6-14.6); RBC Distribution Width SD 39.2 fl (35.1-43.9); White Blood Count 7.5 K/mm3 (4.4-11.0)
--- NOTE | 2024-01-31 18:24 | HP.PCM.OB_ITS ---
HPI - General General Date of Admission: 01/31/24 HPI Narrative ALEXA PINEOD, is a 23 y/o @ 39 weeks 2 days who presents to L&D for IOL due to induced hypertension. She was examined in the office and found to be 3/ 80/-2 cm and having irregular contractions. All labs for pre-eclampsia were negative Maternal Data Information CARL Calculator Estimated Delivery Date Method Current WG Current Estimate 02/05/24 LMP (Certain) 39w 2d PFSH PFSH Medical History Spotting in early Amenorrhea Vitamin D deficiency Acute cystitis PTSD (post-traumatic stress disorder) Renal colic on left side Kidney stones Patellofemoral stress syndrome of left knee Acne vulgaris Anxiety and depression Home Medications ?Medication ?Instructions ?Recorded ?Last Taken ?Type PNV 153-FA 400 mcg-om3 35 mg-dha 1 tab PO DAILY 06/23/23 Unknown History 25 mg-epa 5 mg-fish oil chew tablet buspirone 7.5 mg tablet 15 mg (2 x 7.5 mg) PO TID PRN 08/23/23 Unknown Rx anxiety #60 tabs Allergy/AdvReac Type Severity Reaction Status Date / Time acetaminophen (From Tylenol) AdvReac Vomiting Verified 01/31/24 14:53 Family History Mother Heart disease IHSS, Lglao-Sdujdpuoo-Glbse Syndrome Bleeding disorder Factor V Family history of recurrent miscarriage x2 Father bipolar Surgical History History of tonsillectomy and adenoidectomy Social History adopted: No household members: significant other current occupational status: employed current occupation: [employer] Work[employer] current occupational exposures/hazards: No pets and animals: Yes pets and animals: dog(s) history of recent travel: No sexually active: Yes Smoking Status: Never smoker alcohol intake: never substance use type: does not use well-balanced diet: daily or most days caffeine: Yes Type: tea Number of servings: 1 eating out: 1-3 times/week during the past year weight has: remained stable what type of physical activity do you participate in: none lori/christian: None seatbelt use: always do you feel safe at home: Yes additional social history: Boyfriend-Genaro History 1 Elective abortions Hx Para 0 Spontaneous abortions Hx # Term Pregnancies Ectopic pregnancies Hx # Pregnancies Multiple births # of living children Visit Details Expected Delivery Route/Plan Labor Preferences- CB/BF classes: encouraged labor support person: Genaro labor intervention preferences: [] pain management options preferred: epidural cut cord/dad catch: yes : yes PP control planned: discussed discussed possible routes of delivery and associated risks: [] special requests: [] Plans Covid status: [] Flu vaccine: [] Tdap vaccine: given Rhogam:na LARC form signed: yes movement and labor precautions reviewed. Problem list reviewed and updated with the most current plan of care details and appropriate orders placed. Relevant counseling for the gestational age provided. Continue routine care and follow up unless otherwise noted in visit notes/problem list details OB Flowsheet Initial Weight: Not Recorded Date -?-?-?-?-?-?-?-?-?-?-?-?- EGA Weight BP Urine Prot -?-?-?-?-?-?-?-?-?-?-?-?- Glucose FHR FuHt Pres Dilation -?-?-?-?-?-?-?-?-?-?-?-?- Effaced St Visit Note 06/26/23 -?-?-?-?-?-?-?-?-?-?-?-?- 8w 0d 219 lb 131/83 -?-?-?-?-?-?-?-?-?-?-?-?- 170 -?-?-?-?-?-?-?-?-?-?-?--?- JV- CRL consiste nt with LMP and earlier scan. desires NIPT and carrier testing 07/25/23 -?-?-?-?-?-?-?-?-?-?-?-?- 12w 1d 215 lb 144/85 119/73 Negative -?-?-?-?-?-?-?-?-?-?-?-?- Negative -?-?-?-?-?-?-?-?-?-?-?-?- KW- no vb/crampi ng. Handheld US used today. noted movement and heart. Formal US ordered 08/17/23 -?-?-?-?-?-?-?-?-?-?-?-?- 15w 3d 215 lb 2 oz 119/84 Nega tive -?-?-?-?-?-?-?-?-?-?-?-?- Negative 148 -?-?-?-?-?-?-?-?-?-?-?-?- kw- no vb/crampi ng. AFP testing today. anatomy US 4/3. 08/23/23 -?-?-?-?-?-?-?-?-?-?-?-?- 16w 2d 213 lb 2 oz 115/79 Nega tive -?-?-?-?-?-?-?-?-?-?-?-?- Negative 150 -?-?-?-?-?-?-?-?-?-?-?-?- JV- pt is having extreme anxiety. recommending to see psychiatry and try buspar. pt to tell mfm when goes for scan that she has a long family history of heart problems (WFP and heart surgery) 09/20/23 -?-?-?-?-?-?-?-?-?-?-?-?- 20w 2d 217 lb 111/78 Negative -?-?-?-?-?-?-?-?-?-?-?-?- Negative 145 -?-?-?-?-?-?-?-?-?-?-?-?- LC- no vb/crampi ng. needs complete cardiac/spine views. 10/18/23 -?-?-?-?-?-?-?-?-?-?-?-?- 24w 2d 221 lb 2 oz 110/70 Nega tive -?-?-?-?-?-?-?-?-?-?-?-?- Negative 143 -?-?-?-?-?-?-?-?-?-?-?-?- MH-No VB,crampin g. Denies concerns 10/24/23 -?-?-?-?-?-?-?-?-?-?-?-?- 25w 1d 221 lb 4 oz 111/80 Nega tive -?-?-?-?-?-?-?-?-?-?-?-?- 100 g/dL 143 26 -?-?-?-?-?-?-?-?-?-?-?-?- KW- no vb/lof. n o regular contractions. does notice intermittent cramping today. feels like she is getting a GI bug and may be a little dehydrated. encouraged fluids-reassurance given. will get UA today. 11/13/23 -?-?-?-?-?-?-?-?-?-?-?-?- 28w 0d 223 lb 113/80 Negative -?-?-?-?-?-?-?-?-?-?-?-?- Negative 140 28 -?-?-?-?-?-?-?-?-?-?-?-?- SM- no vb lof go od fm no reuglar ctx tdap today 11/29/23 -?-?-?-?-?-?-?-?-?-?-?-?- 30w 2d 225 lb 120/83 -?-?-?-?-?-?-?-?-?-?-?-?- 145 30 -?-?-?-?-?-?-?-?-?-?-?-?- SM- no vb lof go od fm no regular ctx 12/13/23 -?-?-?-?-?-?-?-?-?-?-?-?- 32w 2d 230 lb 130/83 -?-?-?-?-?-?-?-?-?-?-?-?- 135 32 -?-?-?-?-?-?-?-?-?-?-?-?- SM- no vb lof go od fm no regular ctx 12/27/23 -?-?-?-?-?-?-?-?-?-?-?-?- 34w 2d 232 lb 118/82 Negative -?-?-?-?-?-?-?-?-?-?-?-?- Negative 166 34 -?-?-?-?-?-?-?-?-?-?-?-?- MH-No VB, LOF. G ood FM. Has cough, congestion. No fever. Some diarrhea. Med st given and reviewed. Force fluids. 01/10/24 -?-?-?-?-?-?-?-?-?-?-?-?- 36w 2d 235 lb 126/87 -?-?-?-?-?-?-?-?-?-?-?-?- 141 36 Cephalic -?-?-?-?-?-?-?-?-?-?-?-?- MH-Nno VB, LOF. Good FM. No CTX. GBS done 01/17/24 -?-?-?-?-?-?-?-?-?-?-?-?- 37w 2d 236 lb 8 oz 133/89 Nega tive -?-?-?-?-?-?-?-?-?-?-?-?- Negative 140 37 Cephalic 0 .5 -?-?-?-?-?-?-?-?-?-?-?-?- JV- pt complains of decreased movement. 2 kicks in last hour JV- pt complains of decrease d movement. 2 kicks in last hour. NST is reactive. kick counts reviewed. movement seen on her abdomen during exam also. JV- rpt bp 127/89. pt compla ins of decreased movement. 2 kicks in last hour. NST is reactive. kick counts reviewed. movement seen on her abdomen during exam also. rto on monday for close observation of b p. pt is asymptomatic. no proteinuria. 01/22/24 -?-?-?-?-?-?-?-?-?-?-?-?- 38w 0d 234 lb 8 oz 124/87 Nega tive -?-?-?-?-?-?-?-?-?-?-?-?- Negative 135 38 -?-?-?-?-?-?-?-?-?-?-?-?- JV- pt is having just the minimum of 4 kicks in 40 minutes. will order a BPP to hopefully be done within then next 24 hours. pt to return monday. 01/26/24 -?-?-?-?-?-?-?-?-?-?-?-?- 38w 4d 236 lb 4 oz 124/81 Nega tive -?-?-?-?-?-?-?-?-?-?-?-?- Negative 150 38 2 -?-?-?-?-?-?-?-?-?-?-?-?- 50 -2 KW- no vb/ lof/ctx. good fm. reviewed plan. 01/31/24 -?-?-?-?-?-?-?-?-?-?-?-?- 39w 2d 235 lb 8 oz 135/96 Nega tive -?-?-?-?-?-?-?-?-?-?-?-?- Negative 150 40 Cephalic 2 .5 -?-?-?-?-?-?-?-?-?-?-?-?- 80 -2 JV- no lof , vaginal bleeding, or dec fm. She has contractions frequently and c/o rectal pain. bp is elevated today. sending to L&D for PIH work up. ROS Constitutional Constitutional: Denies change in weight, fatigue, fever(s), headache(s), poor appetite or weakness Eyes Eyes: Denies blurry vision, change in vision, seeing flashes or spots in vision ENT HEENT: Denies dizziness, headache(s), loss taste/smell or sore throat Cardiovascular Cardiovascular: Denies chest pain, dizziness, dyspnea, irregular heart rhythm, leg edema, palpitations, rapid heart rate or vomiting Respiratory/Chest Respiratory/Chest: Denies chest tightness, cough, dyspnea or breast pain Gastrointestinal Gastrointestinal: Denies abdominal pain, anorexia, constipation, cramping, diarrhea, hemorrhoids, vomiting or weight changes Genitourinary Genitourinary: Denies dysuria, flank pain, genital lesions, genital pain, urinary frequency or urinary urgency Musculoskeletal Musculoskeletal: Denies back pain, difficulty walking, joint pain, limited range of motion, muscle cramps or numbness Integumentary Integumentary: Denies lesions or unusual bruising Neurologic Neurologic: Denies abnormal movements, abnormal speech, dizziness, numbness, seizure-like activity or syncope Psychiatric Psychiatric: Denies anxiety, behavioral changes, change in appetite, change in libido, cognitive impairment, confusion, depression, difficulty concentrating, hallucinations or suicidal thoughts Endocrine Endocrinology: Denies excessive sweating, polydipsia or polyuria Hematologic/Lymphatic Hematologic/Lymphatic: Denies easy bleeding, easy bruising or lymphadenopathy Allergic/Immunologic Allergic/Immunologic: Denies itchy eyes, lip swelling, seasonal rhinorrhea, rhinitis, throat swelling, tongue swelling, eczemia, wheezing or asthma Vital Signs Vital Signs Vital Signs: 01/31/24 14:59 01/31/24 14:59 01/31/24 14:59 Temperature Temperature Source Temporal Pulse Rate 100 Respiratory Rate Blood Pressure 139/92 H BP Systolic 139 BP Diastolic 92 Pulse Ox 01/31/24 14:59 01/31/24 14:59 01/31/24 14:59 Temperature 98.7 F Temperature Source Pulse Rate Respiratory Rate 16 Blood Pressure BP Systolic BP Diastolic Pulse Ox 98 01/31/24 15:13 01/31/24 15:13 01/31/24 15:14 Temperature Temperature Source Pulse Rate 101 H Respiratory Rate Blood Pressure 135/89 H 130/85 H BP Systolic 135 130 BP Diastolic 89 85 Pulse Ox 01/31/24 15:14 01/31/24 15:27 01/31/24 15:27 Temperature Temperature Source Pulse Rate 100 93 Respiratory Rate Blood Pressure 137/83 H BP Systolic 137 BP Diastolic 83 Pulse Ox 01/31/24 15:42 01/31/24 15:42 01/31/24 15:58 Temperature Temperature Source Pulse Rate 96 Respiratory Rate Blood Pressure 142/90 H 140/96 H BP Systolic 142 140 BP Diastolic 90 96 Pulse Ox 01/31/24 15:58 01/31/24 16:12 01/31/24 16:12 Temperature Temperature Source Pulse Rate 107 H 112 H Respiratory Rate Blood Pressure 145/103 H BP Systolic 145 BP Diastolic 103 Pulse Ox 01/31/24 16:27 01/31/24 16:27 01/31/24 16:44 Temperature Temperature Source Pulse Rate 116 H Respiratory Rate Blood Pressure 148/105 H 169/101 H BP Systolic 148 169 BP Diastolic 105 101 Pulse Ox 01/31/24 16:44 01/31/24 16:48 01/31/24 16:48 Temperature Temperature Source Pulse Rate 110 H 93 Respiratory Rate Blood Pressure 138/87 H BP Systolic 138 BP Diastolic 87 Pulse Ox Weight Weight: 231 lb 11.293 oz Body Mass Index (BMI) 39.7 Physical Exam Const alert, oriented x3, no apparent distress and healthy appearing General Appearance: cooperative; Negative for anxious HEENT normocephalic Face and Sinus: normal facial exam Eyes EOMs intact bilaterally and no scleral icterus General Eye: normal appearance of both eyes Neck full ROM and supple Lymph Lymphatic: no lymphadenopathy noted Chest Chest: abnormal inspection of the chest Resp normal respiratory effort Effort and Inspection: able to speak in complete sentences Cardio regular rate GI soft to palpation and non-tender Inspection: gravid Palpation: soft; Negative for tender external exam normal Amniotic Fluid: ROM+plus Back/Spine no CVA tenderness Extremity normal to inspection, full ROM and no clubbing, cyanosis or edema General Extremity: Negative for calf tenderness or edema Skin Lesions: no lesions Rashes: no rashes Psych mental status grossly normal Labs Labs Labs: Blood Type O POSITIVE Antibody Screen NEGATIVE Hct 40.7 % (37-47) Hgb 14.3 g/dL (12.0-15.0) Obstetrics Ultrasound Syphilis Total Ab Non-reactive Rubella IgG Antibody Reactive (Nonreactive) Hep Bs Antigen Non-Reactive (Nonreactive) Hepatitis C Antibody Non-Reactive (Nonreactive) Chlamydia DNA (PADMINI) Negative (Negative) N.gonorrhoeae DNA (PADMINI) Negative (Negative) HIV 1&2 Antibody Non-Reactive (Nonreactive) Glucose 1 Hr 50 gm 149 mg/dL (70-140) H Gest Glucose Tolerance MG/DL Assessment & Plan (1) induced hypertension: (2) Decreased movement: (3) Abnormal glucose affecting : COMMENT: passed 3 hour gct (4) Family history of heart disease: COMMENT: mom, mom's mom, and uncle have IHSS. - consult to cardiology for echo (5) Obesity affecting : QUALIFIERS: Trimester: second trimester Obesity type affecting : unspecified obesity Qualified Code(s): O99.212 - Obesity complicating , second trimester (6) Schizoid personality disorder: COMMENT: Dx 2018 (7) Supervision of high-risk : QUALIFIERS: Trimester: third trimester Qualified Code(s): O09.93 - Supervision of high risk , unspecified, third trimester COMMENT: PRR, , CARL 02/05/24, girl Elida Lam (8) : QUALIFIERS: Weeks of gestation: 39 weeks Qualified Code(s): Z3A.39 - 39 weeks gestation of COMMENT: Neg GBS. discussed genetic & carrier testing, AFP NL (9) Infertility associated with anovulation: (10) Headache, migraine: PLAN: Plan Patient presents IOL, plan management for with pitocin/AROM. Pain management: plans epidural. GBS negative. Management of any complications: see above I have reviewed the [facility] and made any clinically relevant updates.
[2024-01-31 18:57] LABS: Syphilis Antibodies Non-reactive
[2024-01-31] MEDS: Oxytocin 15 Units/NS 250ml 15 UNITS/250 ML IV.SOLN 2 UNITS IV (20:00)
[2024-01-31] MEDS: Ondansetron 4 MG/2 ML Vial IV (23:14)
[2024-02-01] VITALS (92 sets, daily range): BP systolic 95–180; BP diastolic 51–112; PULSE 72–129; RESP 14–20; TEMP 36.3–37.1; O2SAT 97–100
[2024-02-01] MEDS: Lactated Ringers 1,000 ML 50 ML IV (02:38)
[2024-02-01] MEDS: Lactated Ringers 1,000 ML 999 ML IV (05:05)
[2024-02-01] MEDS: fentaNYL-bupivacaine (epidural) 100 ML BAG EPIDURAL ×2 (06:49→11:26)
[2024-02-01] MEDS: Lactated Ringers 1,000 ML 200 ML IV ×2 (11:06→14:31)
--- NOTE | 2024-02-01 12:16 | PCM.PN.BLA ---
Progress Note decel to 60s x 3 minutes, taken to the back, hands and knees position, recovery to 120s then 140s, moderate variability, reactive, then a variable decel noted so amnioinusion was started, IVF bolus and pitocin turned off. cat II tracng. exp managment now 6 and stretchy, making change into active labor. monitoring in room for a few minutes and if stable return to room..
[2024-02-01] MEDS: Amnioinfusion- 0.9% NS 1,000 ML IV.SOLN. 1000 ML INTRA-UTER (12:18)
[2024-02-01] MEDS: Sodium Citrate/Citric Acid 30 ML UDC PO (15:15)
[2024-02-01] MEDS: Cefazolin 2 GM in 0.9% Normal Saline (100mL Bag) 100 ML IV (15:31)
[2024-02-01] MEDS: Carboprost Tromethamine 250 MCG/ML Ampul IM (15:51)
[2024-02-01] MEDS: Azithromycin 500 MG in Dextrose 5%-Water (250mL Bag) 250 ML 250 MG IV (15:55)
[2024-02-01] MEDS: Oxytocin 15 Units/NS 250ml 15 UNITS/250 ML IV.SOLN 83 UNITS IV (16:45)
--- NOTE | 2024-02-01 17:03 | DCINST_ITS ---
Discharge Instructions Follow Up Care Test Results: Test results from this visit will be discussed in further detail at your follow- up appointment, if applicable. Discharge Plan Admission Admit Date/Time: 01/31/24 16:45 Attending Provider: Sandra Mooney Primary Care Provider: Sebastian PhysicianMitzi Primary Discharge Orders/Prescriptions Prescriptions: No Action PNV no.[id number] 400 mcg-35 mg- 25 mg-5 mg tablet,chewable 1 tab PO DAILY buspirone 7.5 mg tablet 15 mg PO TID PRN (Reason: anxiety) Qty: 60 0RF Rx Instructions: take 1-2 tabs every 8 hours as needed for anxiety Referrals / Follow Up: Care Physician,No Primary [Primary Care Provider] -
--- NOTE | 2024-02-01 17:03 | EX.PCM.OBRPT ---
Assessment & Plan (1) : QUALIFIERS: Weeks of gestation: 39 weeks Qualified Code(s): Z3A.39 - 39 weeks gestation of COMMENT: Neg GBS. discussed genetic & carrier testing, AFP NL (2) Supervision of high-risk : QUALIFIERS: Trimester: third trimester Qualified Code(s): O09.93 - Supervision of high risk , unspecified, third trimester COMMENT: PRR, , CARL 02/05/24, girl Elida Lam (3) Schizoid personality disorder: COMMENT: Dx 2018 (4) Family history of heart disease: COMMENT: mom, mom's mom, and uncle have IHSS. - consult to cardiology for echo (5) Abnormal glucose affecting : COMMENT: passed 3 hour gct (6) induced hypertension: (7) Category II heart rate tracing during labor and delivery: Maternal Data Information CARL Calculator Estimated Delivery Date Method Current WG Current Estimate 02/05/24 LMP (Certain) 39w 3d Details Operative Information Date of Procedure: 02/01/24 Pre-Operative Diagnosis: see a/p diagnoses Post-Operative Diagnosis: same Indications Narrative: surgeon: Jyotsna Blake MD Procedure Type: low transverse scrap iron loader #1: Lucrecia Charles Type of Anesthesia: Epidural Special Medications: none Drain: Gunter to straight drain Estimated Blood Loss: 900 Fluids Replaced: crystalloid Procedure Start Time: 15:26 Procedure Stop Time: 16:30 Findings Description of Procedure: patient was induced for gestational hypertension. Patient underwent induction and then artificial rupture membranes and Pitocin induction. Patient made cervical change and then developed recurrent decelerations therefore the Pitocin was turned off. There was a bradycardia in which Pitocin was turned off and initially an OB ERT was called. heart rate pattern resolved and amnioinfusion was started to help variable decelerations. Overall heart rate pattern was then reassuring and therefore continued expectant management was done. Several hours later patient was still only 6 cm dilated and we were unable to start Pitocin due to minimal variability and then developing recurrent periodic variable decelerations. Despite position changes and amnioinfusion and IV fluid boluses, category 2 tracing persisted and the patient was still 5 to 6 cm, and the decision was made to proceed with primary for arrest of dilation and category 2 tracing. thick meconium fluid present. The patient was placed in the dorsal supine position with leftward tilt. Patient was prepped and draped in the normal sterile fashion. Pfannenstiel skin incision was made with the scalpel and carried through to the underlying layer of fascia with the scalpel. Fascia was nicked in the midline and the incision extended laterally. The rectus bellies were dissected off superiorly and inferiorly with out complication both sharply and bluntly. The peritoneum was entered digitally. The incision was stretched and a low transverse uterine incision was made with the scalpel. The 's head was delivered atraumatically followed by the anterior and posterior shoulders without complication the rest of the delivered. The cord was clamped and cut and the was handed off to awaiting nurse. The placenta was delivered spontaneously immediately following and was noted to be intact and have a three-vessel cord. The uterus was exteriorized cleared of all clots and debris, and the incision was closed in a single layer closure using #1 Monocryl. The ovaries and fallopian tubes were noted to be within normal limits. The uterus was returned to the maternal abdomen and gutters were cleared of all clots and debris. The peritoneum was closed with 3-0 Monocryl in a running fashion. Fascia was closed with 0 PDS in a running fashion. Subcutaneous tissue was copiously irrigated and the skin was closed with 3-0 Monocryl in a subcuticular fashion. Mepilex dressing was applied without complication. Patient was taken to recovery in stable condition. It was discussed with the patient that based on the clinical information obtained during this encounter, combined with her history, at this time I would recommend vaginal or cesareans for future deliveries if further pregnancies are desired. Amniotic Fluid Description: Thick meconium Placental Delivery Description: Spontaneous Placenta Disposition: [facility] Cord Vessel Description: 3 Vessels Complications Risks of Surgery Discussed w/Patient: Bleeding, Infection, Need for Future C-Sections and Injury to surrounding structure(s) including bowel and bladder Complications: none Admit VTE Documentation VTE Present on Admission: No VTE Mechan Device Prophylaxis: SCD's Multi Select Codes Urinary/Genital Urinary/Genital CPT Codes: 58375 delivery+PP Care([facility])
[2024-02-01] MEDS: Ketorolac 30 MG/ML Syringe IV ×2 (17:29→23:25)
[2024-02-01] MEDS: Lactated Ringers 1,000 ML 100 ML IV (20:25)
[2024-02-01] MEDS: 0.9% Saline Lock 10 ML Syringe IV (23:31)
[2024-02-02 00:40] VITALS: BP 124/75; PULSE 74; RESP 16; TEMP 36.4; O2SAT 100
[2024-02-02 03:15] VITALS: BP 119/79; PULSE 72; RESP 16; TEMP 36.6; O2SAT 98
[2024-02-02] MEDS: Naproxen 500 MG Tablet PO ×3 (05:42→21:51)
[2024-02-02] MEDS: Enoxaparin 40 MG/0.4 ML Syringe SC (05:42)
--- NOTE | 2024-02-02 07:16 | PCM.PN.OB ---
Subjective Subjective Patient doing well without complaints. Tolerating PO. Ambulating and voiding without difficulty. feeding well. Denies chest pain, shortness of breath, calf pain/swelling, fevers, chills, lightheadedness. Objective Data Objective Data Vital Signs: Vital Signs Temp Pulse Resp BP Pulse Ox O2 Del Method 98 F 72 16 119/79 98 Room Air 02/02/24 03:15 02/02/24 03:15 02/02/24 03:15 02/02/24 03:15 02/02/24 03:15 02/02/24 03:15 Oxygen Delivery Method Room Air Weight: 231 lb 11.293 oz Body Mass Index (BMI) 39.7 Intake & Output: Intake and Output for Last 24 Hours 01/31/24 02/01/24 02/02/24 23:59 23:59 23:59 Intake Total 15.17 / 15.17 4100.41 / 4100.41 666.67 / 666.67 Output Total 325 / 325 4050 / 4050 800 / 800 Balance -309.83 / -309.83 50.41 / 50.41 -133.33 / -133.33 Lab / Micro Data 01/31/24 18:00 01/31/24 15:07 ROS Constitutional Constitutional: Reports systems reviewed and no addt'l complaints, except as documented Cardiovascular Cardiovascular: Reports systems reviewed and no addt'l complaints, except as documented Respiratory/Chest Respiratory/Chest: Reports systems reviewed and no addt'l complaints, except as documented Gastrointestinal Gastrointestinal: Reports systems reviewed and no addt'l complaints, except as documented Physical Exam Const alert, oriented x3 and no apparent distress HEENT Head and Scalp: atraumatic Resp normal respiratory effort GI soft to palpation and non-tender Inspection: incision intact, healing well and drainage (none) Bimanual Exam - Vag & Uterus: uterus non-tender Uterus Palpation: uterus fundus firm (below Umbilicus) Assessment & Plan (1) delivery delivered: COMMENT: LT cat II tracing phoebe 39 IOL GHTN PLAN: Plan s/p LTCS PPD # 1 1. routine post care 2. breast feeding- support given 3. rh positive 4. rubella immune
[2024-02-02 09:32] VITALS: BP 118/72; PULSE 80; RESP 16; TEMP 36.3; O2SAT 97
[2024-02-02 10:07] LABS: Hemoglobin 11.8 g/dL (12.0-15.0); Mean Corp Hgb Conc 34.7 g/dL (32-36); Mean Corpuscular Hgb 29.9 pg (27.0-32.0); Mean Corpuscular Volume 86.3 fL (81-99); Mean Platelet Vol. 10.9 fl (6.2-12.0); Platelet Count 239 K/mm3 (150-450); RBC Distribution Width CV 12.9 % (11.6-14.6); RBC Distribution Width SD 40.1 fl (35.1-43.9); Red Blood Count 3.94 M/mm3 (4.2-5.4); White Blood Count 9.7 K/mm3 (4.4-11.0)
[2024-02-02 13:00] VITALS: BP 99/69; PULSE 81; RESP 16; O2SAT 100
[2024-02-02] MEDS: oxyCODONE 5 MG Tablet PO ×2 (16:25→21:07)
[2024-02-02 20:00] VITALS: BP 106/70; PULSE 87; RESP 16; TEMP 36.7; O2SAT 98
[2024-02-03 03:30] VITALS: BP 131/83; PULSE 87; RESP 16; TEMP 36.3; O2SAT 98
--- NOTE | 2024-02-03 05:42 | PCM.PN.OB ---
Subjective Subjective Patient doing well without complaints. Tolerating PO. Ambulating and voiding without difficulty. feeding well. Denies chest pain, shortness of breath, calf pain/swelling, fevers, chills, lightheadedness. Objective Data Objective Data Vital Signs: Vital Signs Temp Pulse Resp BP Pulse Ox O2 Del Method 97.4 F L 87 16 131/83 H 98 Room Air 02/03/24 03:30 02/03/24 03:30 02/03/24 03:30 02/03/24 03:30 02/03/24 03:30 02/03/24 03:30 Oxygen Delivery Method Room Air Weight: 231 lb 11.293 oz Body Mass Index (BMI) 39.7 Intake & Output: Intake and Output for Last 24 Hours 02/01/24 02/02/24 02/03/24 23:59 23:59 23:59 Intake Total 4100.41 / 4100.41 666.67 / 666.67 Output Total 4050 / 4050 800 / 800 Balance 50.41 / 50.41 -133.33 / -133.33 Lab / Micro Data 02/02/24 09:51 01/31/24 15:07 Labs: Laboratory Results - last 24 hr 02/02/24 09:51: WBC 9.7, RBC 3.94 L, Hgb 11.8 L, Hct 34.0 L, MCV 86.3, MCH 29.9, MCHC 34.7, RDW Std Deviation 40.1, RDW Coeff of Steven 12.9, Plt Count 239, MPV 10.9 ROS Constitutional Constitutional: Reports systems reviewed and no addt'l complaints, except as documented Cardiovascular Cardiovascular: Reports systems reviewed and no addt'l complaints, except as documented Respiratory/Chest Respiratory/Chest: Reports systems reviewed and no addt'l complaints, except as documented Gastrointestinal Gastrointestinal: Reports systems reviewed and no addt'l complaints, except as documented Physical Exam Const alert, oriented x3 and no apparent distress HEENT Head and Scalp: atraumatic Resp normal respiratory effort GI soft to palpation and non-tender Inspection: incision intact, healing well and drainage (none) Bimanual Exam - Vag & Uterus: uterus non-tender Uterus Palpation: uterus fundus firm (below Umbilicus) Assessment & Plan (1) delivery delivered: COMMENT: LTCS cat II tracing phoebe 39 IOL GHTN PLAN: Plan s/p LTCS PPD # 2 1. routine post care 2. breast feeding- support given 3. rh positive 4. rubella immune
[2024-02-03] MEDS: oxyCODONE 5 MG Tablet PO (06:01)
[2024-02-03] MEDS: Enoxaparin 40 MG/0.4 ML Syringe SC (06:11)
[2024-02-03] MEDS: Naproxen 500 MG Tablet PO ×3 (06:17→20:50)
[2024-02-03 09:06] VITALS: BP 125/94; PULSE 78; RESP 16; TEMP 36.7; O2SAT 99
[2024-02-03] MEDS: Senna/Docusate Sodium 1 Tablet PO (13:18)
[2024-02-03 13:29] VITALS: BP 132/86; PULSE 75; RESP 16; TEMP 36.6
[2024-02-03 20:00] VITALS: BP 126/81; PULSE 77; RESP 16; TEMP 36.8; O2SAT 98
[2024-02-04 01:40] VITALS: BP 129/86; PULSE 73; RESP 14; TEMP 36.4; O2SAT 98
[2024-02-04] MEDS: Enoxaparin 40 MG/0.4 ML Syringe SC (05:06)
[2024-02-04] MEDS: Naproxen 500 MG Tablet PO (05:06)
--- NOTE | 2024-02-04 08:07 | PN.OBGYN_ITS ---
Subjective Subjective Patient doing well without complaints. Tolerating PO. Ambulating and voiding without difficulty. feeding well. Denies chest pain, shortness of breath, calf pain/swelling, fevers, chills, lightheadedness. Objective Data Objective Data Vital Signs: Vital Signs Temp Pulse Resp BP Pulse Ox O2 Del Method 97.6 F L 73 14 129/86 H 98 Room Air 02/04/24 01:40 02/04/24 01:40 02/04/24 01:40 02/04/24 01:40 02/04/24 01:40 02/04/24 01:40 Oxygen Delivery Method Room Air Weight: 231 lb 11.293 oz Body Mass Index (BMI) 39.7 Intake & Output: Intake and Output for Last 24 Hours 02/02/24 02/03/24 02/04/24 23:59 23:59 23:59 Intake Total 666.67 / 666.67 Output Total 800 / 800 Balance -133.33 / -133.33 Lab / Micro Data 02/02/24 09:51 01/31/24 15:07 ROS Constitutional Constitutional: Reports systems reviewed and no addt'l complaints, except as documented Cardiovascular Cardiovascular: Reports systems reviewed and no addt'l complaints, except as documented Respiratory/Chest Respiratory/Chest: Reports systems reviewed and no addt'l complaints, except as documented Gastrointestinal Gastrointestinal: Reports systems reviewed and no addt'l complaints, except as documented Physical Exam Const alert, oriented x3 and no apparent distress HEENT Head and Scalp: atraumatic Resp normal respiratory effort GI soft to palpation and non-tender Inspection: incision intact, healing well and drainage (none) Bimanual Exam - Vag & Uterus: uterus non-tender Uterus Palpation: uterus fundus firm (below Umbilicus) Assessment & Plan (1) delivery delivered: COMMENT: LTCS cat II tracing phoebe 39 IOL GHTN (2) Category II heart rate tracing during labor and delivery: (3) Supervision of high-risk : QUALIFIERS: Trimester: third trimester Qualified Code(s): O09.93 - Supervision of high risk , unspecified, third trimester COMMENT: PRR, , CARL 02/05/24, girl Phoebe BF Genaro (4) : QUALIFIERS: Weeks of gestation: 39 weeks Qualified Code(s): Z 3A.39 - 39 weeks gestation of COMMENT: Neg GBS. discussed genetic & carrier testing, AFP NL PLAN: Plan s/p LTCS PPD # 3 1. routine post care 2. breast feeding- support given 3. rh positive 4. rubella immune
--- NOTE | 2024-02-04 08:09 | PCM.DC.SUM ---
Providers Date of Admission: 01/31/24 Primary Care Physician: Mitzi Primary Care Phys Reason For Visit: PRIMARY C SECTION Diagnosis Discharge Diagnosis (1) delivery delivered: Status: Acute Code(s): O82 - Encounter for delivery without indication (2) Category II heart rate tracing during labor and delivery: Status: Acute Code(s): O76 - Abnormality in heart rate and rhythm complicating labor and delivery (3) Supervision of high-risk : Status: Acute Code(s): O09.90 - Supervision of high risk , unspecified, unspecified trimester Qualifiers: Trimester: third trimester Qualified Code(s): O09.93 - Supervision of high risk , unspecified, third trimester (4) : Status: Acute Code(s): Z34.90 - Encounter for supervision of normal , unspecified, unspecified trimester Qualifiers: Weeks of gestation: 39 weeks Qualified Code(s): Z3A.39 - 39 weeks gestation of Plan s/p LTCS PPD # 3 1. routine post care 2. breast feeding- support given 3. rh positive 4. rubella immune Medications at Discharge Home Medications PNV 153-FA 400 mcg-om3 35 mg-dha 25 mg-epa 5 mg-fish oil chew tablet 1 tab PO DAILY 06/23/23 buspirone 7.5 mg tablet 15 mg (2 x 7.5 mg) PO TID PRN anxiety #60 tabs 08/23/23 Hospital Course Summary of Care Provided Hospital Course: patient presented with elevated bps and underwent IOL for GHTN, experieneced recurrent decels and underwent primary . Postoperatively patient had return of bowel and bladder function and was ambulating well, tolerating adequate p.o., and was stable for discharge to home on postop day #3. Discharge medications naproxen and Percocet. Follow-up in office in 2 weeks for incision check in 6 weeks for visit. Routine post section diet and activity instructions. Weight / BMI Weight Weight: 231 lb 11.293 oz Body Mass Index (BMI) 39.7 ABG / Lab / Microbiology Data 02/02/24 09:51 01/31/24 15:07 D/C Instructions Discharge Diet: No restrictions Discharge Activity: May Not Drive (for 2 weeks or while taking narcotic pain medications.), May Shower and May Take a Tub Bath (in 7 days) May shower in (days): 0 May resume sexual activity in: 4-6 weeks Weight Bearing Status: Full weight bearing Call your doctor if your incision/area has: Continuous Slow Oozing, Sudden Increased Bleeding, Increased Pain/ Swelling, Increased Redness and Foul Smelling Discharge Call your doctor if you observe: Fever of 101 or Higher and Using more than 1 pad per hour (for 2 hours) Suture Line Care: Avoid Pulling/Pushing and Avoid Pinching/Bending Cleanse incision/area with: Soap & Water and Keep Dressing Clean & Dry Please Follow Up With: Jyotsna Blake MD When: Call [phone] to make an appointment for an incision check in 1-2 weeks. Meaningful Use Info Meaningful Use Meaningful Use Diagnoses (Choose all that apply): None applicable Ischemic Stroke Statin Dosing Therapy Reference: STATIN DOSE THERAPY REFERENCE: * Patients > 75 years receive moderate or high dose statin therapy. * Patients 75 years or YOUNGER should receive HIGH intensity statin dose unless contraindicated. You will be required to document reason for non-treatment if statin daily dose does not meet guidelines. HIGH DOSE STATIN THERAPY DAILY Atorvastatin > than or = to 40 mg Rosuvastatin > than or = to 20 mg Amlodipine + Atorvastatin > than or = to 2.5/40 mg Ezetimibe + Simvastatin 10/80 mg Simvastatin 80mg Discharge Plan Admission Admit Date/Time: 01/31/24 16:45 Attending Provider: Sandra Mooney Primary Care Provider: Mitzi Lugo Primary Discharge Orders/Prescriptions Prescriptions: No Action PNV no.[id number] 400 mcg-35 mg- 25 mg-5 mg tablet,chewable 1 tab PO DAILY buspirone 7.5 mg tablet 15 mg PO TID PRN (Reason: anxiety) Qty: 60 0RF Rx Instructions: take 1-2 tabs every 8 hours as needed for anxiety Referrals / Follow Up: Care Physician,No Primary [Primary Care Provider] - Disposition Disposition (needs filled in before D/C Order can be placed): Home, Self Care
[2024-02-04 09:03] VITALS: BP 136/96; PULSE 77; RESP 16; TEMP 36.7; O2SAT 100
[2024-02-04] MEDS: Senna/Docusate Sodium 1 Tablet PO (10:49)
--- NOTE | 2024-02-13 12:06 | NURSING ---
Follow up phone call made, no answer, left voicemail
== END 2024-02-04 11:00 | disposition home or self-care (01) | DRG 540 ==
LOC: WPOUT 16:54 → WP 16:54
PROVIDERS: Obstetrics & Gynecology; Admitting Provider Obstetrics & Gynecology; Referring Provider Obstetrics & Gynecology; Visit Provider Obstetrics & Gynecology
DX: O13.4 Gestational [pregnancy-induced] hypertension without significant proteinuria, complicating childbirth (principal); O99.214 Obesity complicating childbirth; O36.8130 Decreased fetal movements, third trimester, not applicable or unspecified; O62.0 Primary inadequate contractions; O76 Abnormality in fetal heart rate and rhythm complicating labor and delivery; O77.0 Labor and delivery complicated by meconium in amniotic fluid; Z37.0 Single live birth; Z3A.39 39 weeks gestation of pregnancy
CPT/HCPCS: 59025; 59050; 82565; 82570; 84156; 84450; 84460; 84550; 85025; 85027; 86780; 86850; 86900; 86901; 99221; J7030; J7120; A4216; G0378; J2405

== ENCOUNTER → 2024-01-31 | Outpatient (CLI) | payer MEDICAID, SELFPAY ==
[2024-01-31 15:00] LABS: Protein, Urine (Random) 36.4 mg/dL (<11.9); Protein:Creat Ratio 246 mg/g CRE (0-200)
== END | disposition home or self-care (01) ==
PROVIDERS: Referring Provider Obstetrics & Gynecology; Visit Provider Obstetrics & Gynecology
DX: O16.3 Unspecified maternal hypertension, third trimester (principal); Z3A.00 Weeks of gestation of pregnancy not specified
CPT/HCPCS: 82570; 84156

== ENCOUNTER → 2024-12-19 | Outpatient (CLI) | payer MEDICAID, SELFPAY | END | disposition home or self-care (01) | LOC: LABSPEC 15:11 | PROVIDERS: Referring Provider Nurse Practitioner Family; Visit Provider Nurse Practitioner Family | DX: N89.8 Other specified noninflammatory disorders of vagina (principal) | CPT/HCPCS: 87070; 87205 ==

== ENCOUNTER → 2025-02-15 | Outpatient (CLI) | payer MEDICAID, SELFPAY ==
--- NOTE | 2025-02-15 08:54 | US_ITS ---
PROCEDURE: PELVIC W/ TRANSVAGINAL REASON FOR EXAM: IUD PLACEMENT TECHNIQUE: Procedure Code: [id number] Modality: US Procedure: PELVIC W/ TRANSVAGINAL COMPARISON: None FINDINGS: LMP: February 10, 2025. IUD placement August 27. Measurements: Uterus: 8.6 cm x 4.5 cm x 4.3 cm with a volume of 86.7 mL Endometrial Thickness: 6 mm. It is hyperechoic. Small amount of fluid is seen within the cervix. The IUD is seen within the fundal endometrial portion of the uterus. Right Ovary: 3.8 cm x 2.3 cm x 3.2 cm with a volume of 14.8 mL. Left Ovary: 7.5 cm x 7.2 cm x 5.8 cm with a volume of 164.2 mL. TRANSABDOMINAL: Uterus: Unremarkable. IUD is seen within the fundal endometrium. Endometrium: Unremarkable. Right ovary: Normal size and echotexture. Left ovary: There is a 6.4 cm 6.4 cm x 5 cm cyst in the left ovary. Other: No large pelvic mass identified. Transvaginal sonography was performed to better visualize the endometrium. TRANSVAGINAL: Uterus: Anteverted. Endometrium: Normal echotexture. Right ovary: Normal size and echotexture. Left ovary: 6.4 cm 6.4 cm 5 cm simple cyst. Other adnexal findings: None. Cul-de-sac: No free intraperitoneal fluid identified. Tenderness: No tenderness US/Pelvic w/ Transvaginal IMPRESSION: IUD seen within the fundal endometrium. 6.4 cm 6.4 cm x 5.0 cm left ovarian cyst. Reading Location: [place] [id number]
--- OUTSIDE RECORDS SUMMARY | 2025-02-15 08:56 | XMS RPT_ITS | CCD ---
Author Organization [facility] Care Team Providers Care Fur Trapper Name Role Phone Peggy Lei Primary Care Provider Dr. Peggy Lei Referring Provider Dr. Sandra Mooney Attending Provider 1(09 01) Dr. Peggy Lei Referring Provider Dr. Sandra Mooney Attending Provider 1(09 01) Dr. Sandra Mooney Referring Provider 1(09 01) Dr. Sandra Mooney Other Provider Care Physician, No Primary Primary Care Provider Unavailable Care Physician, No Primary Referring Provider Un available PHYSICIAN, NONE Primary Care Physician Unavailab Dr. Sandra Morejon Attending Provider 1(09 01) Dr. Sandra Mooney Referring Provider 1(09 01) Dr. Sandra Mooney Other Provider Care Physician, No Primary Primary Care Provider Unavailable Care Physician, No Primary Referring Provider Un available LUIS Maldonado Attending Provider [phone] SUSAN PARKS Attending Unavailable MAURICIO MIN Primary Care Unavailable SANDRA SALINAS Referring Unavailab SUSAN Munson Attending Unavailable MAURICIO MIN Primary Care Unavailable SANDRA SALINAS Referring Unavailab MAURICIO Rincon Primary Care Unavailable SANDRA SALINAS Referring Unavailab BRUCE Colon Attending Unavailable PHYSICIAN, NONE Primary Care Unavailable PARISH GRIMM, DR HENRY Avila Attending Aurora leticia FLORES MD., NOHELIA Jordan Primary Care Unavailable NGUYEN AZAR, YUNIOR Attending Unavailable BRANDI BOND, DR LOPEZ Attending Unavailabl e PHYSICIAN, NONE Primary Care Unavailable PHYSICIAN, NONE Primary Care Unavailable DAGOBERTO DEVELOPMENTAL WRITING INSTRUCTOR-THERMAL INTELLIGENCE ANALYST, WILFREDO Attending Unavaila ble PHYSICIAN, NONE Primary Care Unavailable DAGOBERTO DEVELOPMENTAL WRITING INSTRUCTOR-THERMAL INTELLIGENCE ANALYST, WILFREDO Attending Unavaila ble LOS MULLEN DO Attending Unavailable PHYSICIAN, NONE Primary Care Unavailable JULEE AZAR, NOHELIA Attending Unavailable PHYSICIAN, NONE Primary Care Unavailable REAGAN NGUYEN MD Attending Unavaila ble PHYSICIAN, NONE Primary Care Unavailable Care Physician, No Primary Referring Unava ilable Care Physician, No Primary Primary Care Unava ilable Sandra Mooney Attending Unavailabl e Care Physician, No Primary Referring Unava ilable Care Physician, No Primary Primary Care Unava ilable Lencho AUTO MECHANICAleksandra Attending Unavailable Care Physician, No Primary Referring Unava ilable Care Physician, No Primary Primary Care Unava ilable Wm AUTO MECHANICAmi Attending Unavailable Vande Sandra Vidal Attending Unavailabl e Care Physician, No Primary Primary Care Unava ilable Care Physician, No Primary Referring Unava ilable Care Physician, No Primary Referring Unava ilable Care Physician, No Primary Primary Care Unava ilable Sandra Mooney Attending Unavailabl e Vande VelSandra valentine Attending Unavailabl e Care Physician, No Primary Primary Care Unava ilable Sandra Mooney Referring Unavailabl e Vande VelSandra valentine Admitting Unavailabl e Care Physician, No Primary Primary Care Unava ilable Abbey Pelaez Attending Unavailable Abbey Pelaez Referring Unavailable Sandra Mooney Attending Unavailabl e Care Physician, No Primary Primary Care Unava ilable Sandra Mooney Referring Unavailabl e Vande Velmeme, Sandra Attending Unavailabl e Care Physician, No Primary Primary Care Unava ilable Sandra Mooney Referring Unavailabl e Vande Velmeme, Sandra Attending Unavailabl e Care Physician, No Primary Primary Care Unava ilable Care Physician, No Primary Referring Unava ilable Care Physician, No Primary Primary Care Unava ilable Wm AUTO MECHANIC, Ami Attending Unavailable Wm AUTO MECHANIC, Ami Referring Unavailable Sandra Mooney Attending Unavailabl e Care Physician, No Primary Referring Unava ilable Care Physician, No Primary Primary Care Unava ilable Care Physician, No Primary Referring Unava ilable Care Physician, No Primary Primary Care Unava ilable Kristen Maldonado Attending Unavailable Sandra Mooney Consulting Unavailabl e Care Physician, No Primary Primary Care Unava ilable Jyotsna Blake Attending Unavailable Sandra Mooney Admitting Unavailmackenzie e Lolye Velmeme, Sandra Referring Unavailabl e Vande VelSandra valentine Attending Unavailabl e Care Physician, No Primary Referring Unava ilable Care Physician, No Primary Primary Care Unava ilable Kristen Maldonado Attending Unavailable Sandra Mooney Attending Unavailabl e Care Physician, No Primary Referring Unava ilable Care Physician, No Primary Primary Care Unava ilable Care Physician, No Primary Referring Unava ilable Care Physician, No Primary Primary Care Unava ilable Abbey Pelaez Attending Unavailable Care Physician, No Primary Primary Care Unava ilable Care Physician, No Primary Referring Unava ilable Kristen Maldonado Attending Unavailable Sandra Mooney Attending Unavailabl e Care Physician, No Primary Referring Unava ilable Care Physician, No Primary Primary Care Unava ilable Care Physician, No Primary Referring Unava ilable Care Physician, No Primary Primary Care Unava ilable Wm AUTO MECHANIC, Ami Attending Unavailable Unavailable Primary Care Provider ANAY Murry Attending Unavailable VIJAY SMART Attending Unavailable Allergies Allergy Classification Reported Allergen(s) Allergy Type Date of Onset Reaction(s) Facility (15 sources) Acetaminophen; Translations: [acetaminophen] Drug Allergy 01-09-2019 Vomiting [facility] Work Phone: (1 source) Acetaminophen Drug Allergy 12-19-2024 [facility] Repository Medications Current Medications Medication Drug Class(es) Dates Sig (Normalized) Sig (Original) acetaminophen 325 mg oral tablet (2 sources) End: 01-12-2025 take 2 tablets by mouth every six hours as needed acetaminophen (TYLENOL) 325 mg tablet Take 650 mg by mouth every 6 hours as needed for Pain or Fever. 01/12/2025 Discontinued Comment on above: Take 650 mg by mouth every 6 hours as needed for Pain or Fever. [id number] 200 actuat albuterol 0.09 mg/actuat metered dose inhaler (2 sources) beta2-Adrenergic Agonist Start: 01-09-2019 End: 01-12-2025 take 2 puff(s) by inhalation every six hours as needed albuterol HFA (PROVENTIL HFA, VENTOLIN HFA) 90 mcg/actuation inhaler Indications: Bronchitis Inhale 2 Puffs as instructed every 6 hours as needed. 1 Inhaler 01/09/2019 01/12/2025 Discontinued Comment on above: Inhale 2 Puffs as in structed every 6 hours as needed. azithromycin 250 mg oral tablet (1 source) Macrolide Antimicrobial Start: 01-12-2025 azithromycin (ZITHROMAX) 250 mg tablet Indications: Acute non-recurrent frontal sinusitis 2 po day 1 then one po daily days 2-5 6 tablet 01/12/2025 Active Start: 01-12-2025 azithromycin ( ZITHROMAX) 250 mg tablet Indications: Acute non-recurrent frontal sinusitis 2 po day 1 then one po daily days 2-5 6 tablet 01/12/2025 Active benzonatate 100 mg oral capsule (11 sources) Non-narcotic Antitussive Start: 01-09-2019 End: 01-12-2025 take 2 capsules by mouth three times daily as needed benzonatate (TESSALON PERLE) 100 mg capsule Indications: Bronchitis Take 2 capsules by mouth three times daily as needed. 42 capsule 01/09/2019 01/12/2025 Discontinued Start: 06-29-2017 End: 06-12-2018 take 100 mg by mouth three times daily as needed Benzonatate Discontinued 100 MG PO 3 TIMES DAILY NEEDED June 29, 2017 1:00am June 12, 2018 5:01pm Comment on above: Take 2 capsules by m out three times daily as needed. busPIRone hydrochloride 7.5 mg oral tablet (1 source) Start: take 1-2 tablets by mouth every eight hours as needed for anxiety Buspirone Active 15 MG PO THREE TIMES A DAY August 23, 2023 12:00am take 1-2 tabs every 8 hours as needed for anxiety cetirizine hydrochloride 10 mg oral tablet (1 source) Histamine-1 Receptor Antagonist Start: End: take 1 tablet by mouth once daily cetirizine (ZYRTEC) 10 mg tablet Indications: Acute non-recurrent frontal sinusitis Take 1 tablet by mouth once daily. 30 tablet 01/12/2025 02/11/2025 Active fluconazole 150 mg oral tablet (1 source) Azole Antifungal Start: fluconazole (DIFLUCAN) 150 mg tablet Indications: Acute non-recurrent frontal sinusitis Take 1 pill po on day 1, then 1 pill po on day 3.1 pill po on day 7 3 tablet 01/12/2025 Active Start: 01-12-2025 fluconazole (D IFLUCAN) 150 mg tablet Indications: Acute non-recurrent frontal sinusitis Take 1 pill po on day 1, then 1 pill po on day 3.1 pill po on day 7 3 tablet 01/12/2025 Active Ibuprofen (10 sources) Nonsteroidal Anti-inflammatory Drug Start: 05-23-2021 ibuprofen 0 Refil l(s) Start Date: 05/23/21 Status: Ordered Start: 02-24-2019 End: 04-12-2019 take 800 mg by mouth three times daily as needed Ibuprofen Discontinued 800 MG PO 3 TIMES DAILY NEEDED February 24, 2019 12:00am April 12, 2019 8:56am Pnv No.[id number]-Epa-Fi sh (3 sources) Start: 06-23-2023 Pnv No.153-Fa- Jx1-Ebm-Zhn-Fish Active TABLET PO June 23, 2023 1:00am Start: 06-23-2023 Pnv No.153-Fa- Nr8-Czg-Ags-Fish Active TABLET PO June 23, 2023 12:00am Completed/Discontinued Medications Medication Drug Class(es) Dates Sig (Normalized) Sig (Original) acetaminophen 325 mg / oxyCODONE hydrochloride 5 mg oral tablet (20 sources) Opioid Agonist Start: 02-06-2019 End: 02-23-2019 take 1 tablet by mouth every six hours as needed Oxycodone-Acetamino phen Discontinued 1 TABLET PO EVERY 6 HOURS NEEDED 05 07February 13, 2019 February 23, 2019 12:09am Start: 06-12-2018 End: 06-28-2018 take 1 tablet by mouth every four hours Oxycodone-Acetaminophen (Percocet) 5-325 mg tablet Discontinued 1 TABLET PO Q4H 2 June 12, 2018 June 28, 2018 12:24pm ALPRAZolam 1 mg oral tablet (9 sources) Benzodiazepine Start: 06-12-2018 End: 06-28-2018 take 1 tablet by mouth twice daily Alprazolam (Xanax) 1 mg tablet Discontinued 1 MG PO TWICE A DAY 1 June 12, 2018 1:00am June 28, 2018 12:24pm Control (9 sources) Start: 12-02-2017 End: 06-12-2018 Control Discontinued December 01, 2017 11:00pm June 12, 2018 4:01pm Start: 12-02-2017 End: 06-12-2018 Control Discontinued 2017 12:00am June 12, 2018 5:01pm clomiPHENE citrate 50 mg oral tablet (7 sources) Estrogen Agonist/Antagonist Start: 05-09-2023 End: 06-23-2023 take 3 tablets by mouth once daily Clomiphene Citrate (Clomid) 50 mg tablet Discontinued 50 MG PO DAILY 10 07May 09, 2023 1:00am June 23, 2023 10:02am start on day 3 of cycle and take for 5 days clonazePAM 0.5 mg oral tablet (9 sources) Benzodiazepine Start: 03-05-2017 End: 06-12-2018 take 0.5 mg by mouth at bedtime Clonazepam Discontinued 0.5 MG PO AT BEDTIME March 05, 2017 12:00am June 12, 2018 5:01pm Norgestimate-Eth inyl Estradiol (16 sources) Progestin, Estrogen Start: 04-17-2023 End: 06-23-2023 take 1 tablet by mouth once daily Norgestimate-Ethi nyl Estradiol (Sprintec (28)) 0.25-35 mg-mcg tablet Discontinued 1 TABLET PO DAILY April 17, 2023 1:00am June 23, 2023 10:02am Start: 04-17-2023 End: 06-23-2023 take 1 tablet by mouth once daily Norgestimate-Ethinyl Estradiol (Sprintec (28)) 0.25-35 mg-mcg tablet Discontinued 1 TABLET PO DAILY April 17, 2023 12:00am June 23, 2023 9:02am Start: 04-17-2023 take 1 tablet by steve th once daily Norgestimate-Ethinyl Estradiol (Sprintec (28)) 0.25-35 mg-mcg tablet Active 1 TABLET PO DAILY April 17, 2023 12:00am Start: 01-27-2018 End: 06-14-2018 take 1 tablet by mouth once daily Norgestimate-Ethinyl Estradiol (Frederick-Linyah) 0.25-35 mg-mcg tablet Discontinued 1 TABLET PO DAILY January 26, 2018 11:00pm June 14, 2018 8:06am Start: 01-27-2018 End: 06-14-2018 take 1 tablet by mouth once daily Norgestimate-Ethinyl Estradiol (Frederick-Linyah) 0.25-35 mg-mcg tablet Discontinued 1 TABLET PO DAILY January 27, 2018 12:00am June 14, 2018 9:06am levonorgestrel 0.068320 mg/hr intrauterine system (9 sources) Progestin, Progestin-containing Intrauterine Device Start: 06-28-2018 End: 06-13-2022 Levonorgestrel (Liletta) 19.5 mcg/24 hour (4 years) intrauterine device Discontinued 1 INSERT INTRA-UTER ONCE June 28, 2018 1:00am June 13, 2022 4:19pm medroxyPROGESTERone acetate 5 mg oral tablet (16 sources) Progestin Start: 10-12-2022 End: 06-23-2023 Medroxyprogesterone Discontinued 5 MG PO DAILY October 12, 2022 4:57pm June 23, 2023 10:02am take as needed for cycle lasting longer than 30 days between periods. Start: 09-22-2022 End: 10-12-2022 take 5 mg by mouth once daily Medroxyprogesterone Discontinued 5 MG PO DAILY September 22, 2022 12:00am October 12, 2022 4:58pm naproxen 500 mg oral tablet (18 sources) Nonsteroidal Anti-inflammatory Drug Start: 01-23-2022 End: 06-13-2022 take 1 tablet by mouth twice daily Naproxen (Naprosyn) 500 mg tablet Discontinued 500 MG PO TWICE A DAY January 23, 2022 12:00am June 13, 2022 4:19pm Start: 12-02-2017 End: 06-12-2018 take 500 mg by mouth twice daily as needed Naproxen Discontinued 500 MG PO TWICE DAILY NEEDED December 02, 2017 12:00am June 12, 2018 5:01pm ondansetron 4 mg disintegrating oral tablet (9 sources) Serotonin-3 Receptor Antagonist Start: 04-22-2018 End: 06-12-2018 take 4 mg by mouth every four hours as needed Ondansetron Discontinued 4 MG PO EVERY 4 HOURS NEEDED April 22, 2018 11:40am June 12, 2018 5:01pm progesterone 100 mg oral capsule (1 source) Progesterone Start: 04-30-2023 End: 05-10-2023 progesterone 100 mg oral capsule Dose : 400 mg = 4 cap(s), Oral, qDay, # 40 cap(s), 0 Refill(s) Start Date: 04/30/23 Stop Date: 05/10/23 Status: Ordered sertraline 100 mg oral tablet (20 sources) Serotonin Reuptake Inhibitor Start: 12-02-2017 End: 06-28-2018 take 150 mg by mouth once daily Sertraline Discontinued 150 MG PO DAILY December 02, 2017 12:00am June 28, 2018 12:24pm Start: 03-05-2017 End: 06-12-2018 take 125 mg by mouth once daily Sertraline Discontinue d 125 MG PO DAILY March 05, 2017 12:00am June 12, 2018 5:01pm Start: 09-05-2016 End: 01-12-2025 take 1 tablet by mouth once daily sertraline (ZOLOFT) 25 mg tablet Take 1 tablet by mouth once daily. 30 tablet 5 09/05/2016 01/12/2025 Discontinued Start: 09-05-2016 End: 01-12-2025 take 1 tablet by mouth once daily sertraline (ZOLOFT) 50 mg tablet Take 1 tablet by mouth once daily. 30 tablet 5 09/05/2016 01/12/2025 Discontinued Comment on above: Take 1 tablet by steve th once daily. Problems Active Problems Problem Classification Problem Date Documented Date Episodic/Chronic Abdominal pain (1 source) Abdominal pain; Translations: [Unspecified abdominal pain] Onset: 07-13-2023 Episodic Acute bronchitis (2 sources) Acute bronchitis due to other specified organisms; Translations: [Acute bronchitis due to other specified organisms] Onset: 01-05-2024 Episodic Anxiety disorders (2 sources) Generalized anxiety disorder; Translations: [Posttraumatic stress disorder] 08-06-2019 Chronic Calculus of urinary tract (20 sources) Ureteric stone; Translations: [Calculus of ureter] 02-07-2019 Episodic Female infertility (20 sources) Female infertility associated with anovulation; Translations: [Female infertility associated with anovulation] Onset: 01-31-2024 03-20-2023 Chronic Headache; including migraine (17 sources) Migraine; Translations: [Migraine, unspecified, not intractable, without status migrainosus] Onset: 01-31-2024 01-21-2021 Chronic Headache; including migraine (2 sources) Acute headache; Translations: [Acute intractable headache, unspecified headache type] Onset: 01-12-2025 01-12-2025 Episodic Headache; including migraine (1 source) Headache; including migraine; Translations: [Acute intractable headache, unspecified headache type] Onset: 01-12-2025 Hypertension complicating ; childbirth and the puerperium (1 source) Unspecified maternal hypertension, third trimester; Translations: [Unspecified maternal hypertension, third trimester] Onset: 02-09-2024 Chronic Joint disorders and dislocations; trauma-related (2 sources) Patellofemoral syndrome of left knee; Translations: [Patellofemoral disorders, left knee] Onset: 12-23-2015 12-23-2015 Chronic Menstrual disorders (13 sources) Amenorrhea; Translations: [Amenorrhea, unspecified] 09-22-2022 Chronic Mood disorders (4 sources) Depressive disorder; Translations: [Depression] Onset: 03-02-2015 03-02-2015 Chronic Other complications of (3 sources) Maternal obesity complicating , childbirth and the puerperium, antepartum; Translations: [Obesity complicating , unspecified trimester] 06-26-2023 Chronic Other complications of (6 sources) Obesity complicating , unspecified trimester; Translations: [Obesity complicating , childbirth, or the puerperium, unspecified as to episode of care or not applicable] 06-26-2023 Chronic Other complications of (2 sources) Obesity complicating , second trimester; Translations: [Obesity complicating , second trimester] Onset: 01-31-2024 Chronic Other complications of (6 sources) Spotting per vagina in ; Translations: [Spotting complicating , unspecified trimester] 06-06-2023 Episodic Other complications of (3 sources) High risk ; Translations: [Supervision of high risk , unspecified, unspecified trimester] 06-23-2023 Episodic Other complications of (6 sources) Spotting complicating , unspecified trimester; Translations: [Spotting complicating , antepartum condition or complication] 06-26-2023 Episodic Other complications of (6 sources) Supervision of high risk , unspecified, unspecified trimester; Translations: [Supervision of unspecified high-risk ] 06-26-2023 Episodic Other female genital disorders (1 source) Other specified noninflammatory disorders of vagina; Translations: [Other specified noninflammatory disorders of vagina] Onset: 12-25-2024 Episodic Other skin disorders (1 source) Acne 11-27-2015 Episodic Other upper respiratory infections (7 sources) Acute upper respiratory infection, unspecified; Translations: [Acute pharyngitis, unspecified] Onset: 01-05-2024 Episodic Personality disorders (11 sources) Schizoid personality disorder; Translations: [Schizoid personality disorder] Onset: 01-31-2024 06-23-2023 Chronic Residual codes; unclassified (1 source) Family history of cardiac disorder; Translations: [Family history of ischemic heart disease and other diseases of the circulatory system] 08-23-2023 Episodic Sprains and strains (9 sources) Sprain of ankle; Translations: [Sprain of unspecified ligament of right ankle, initial encounter] 01-31-2022 Episodic Urinary tract infections (9 sources) Acute cystitis; Translations: [Acute cystitis without hematuria] 01-21-2021 Episodic Viral infection (10 sources) Disease caused by 2019-nCoV; Translations: [COVID-19] Onset: 08-19-2024 05-31-2020 Episodic Past or Other Problems Problem Classification Problem Date Documented Date Episodic/Chronic Contraceptive and procreative management (7 sources) Patient encounter status; Translations: [Encounter for removal of intrauterine contraceptive device] Onset: 09-12-2024 06-13-2022 Episodic Diabetes or abnormal glucose tolerance complicating ; childbirth; or the puerperium (2 sources) Abnormal glucose complicating ; Translations: [Abnormal glucose complicating ] Onset: 01-31-2024 Episodic Hypertension complicating ; childbirth and the puerperium (1 source) Gestational [-induced] hypertension without significant proteinuria, unspecified trimester; Translations: [Gestational [-induced] hypertension without significant proteinuria, unspecified trimester] Onset: 02-28-2024 Episodic Other aftercare (1 source) Encounter for follow-up examination after completed treatment for conditions other than malignant neoplasm; Translations: [Encounter for follow-up examination after completed treatment for conditions other than malignant neoplasm] Onset: 02-14-2024 Episodic Other complications of ; puerperium affecting management of mother (2 sources) Encounter for delivery without indication; Translations: [Encounter for delivery without indication] Onset: 02-14-2024 Episodic Other complications of ; puerperium affecting management of mother (1 source) Abnormality in heart rate and rhythm complicating labor and delivery; Translations: [Abnormality in heart rate and rhythm complicating labor and delivery] Onset: 02-28-2024 Episodic Other complications of (2 sources) Decreased movements, unspecified trimester, not applicable or unspecified; Translations: [Decreased movements, unspecified trimester, not applicable or unspecified] Onset: 02-06-2024 Episodic Other complications of (2 sources) Supervision of high risk , unspecified, third trimester; Translations: [Supervision of high risk , unspecified, third trimester] Onset: 02-09-2024 Episodic Other nutritional; endocrine; and metabolic disorders (2 sources) Overweight; Translations: [Overweight] Onset: 12-01-2016 12-01-2016 Episodic Other and delivery including normal (12 sources) ; Translations: [Encounter for supervision of normal , unspecified, unspecified trimester] Onset: 02-28-2024 06-23-2023 Episodic Comment on above: System added from do cumentation. Status documented as Yes on Admission Other skin disorders (2 sources) Acne vulgaris; Translations: [Acne vulgaris] Onset: 03-27-2015 03-27-2015 Episodic Residual codes; unclassified (2 sources) FH: Cardiomyopathy; Translations: [Family history of ischemic heart disease and other diseases of the circulatory system] Onset: 12-01-2016 12-01-2016 Episodic Residual codes; unclassified (3 sources) Family history of ischemic heart disease and other diseases of the circulatory system; Translations: [Family history of other cardiovascular diseases] Onset: 01-31-2024 08-23-2023 Episodic Residual codes; unclassified (2 sources) 39 weeks gestation of ; Translations: [39 weeks gestation of ] Onset: 01-31-2024 Episodic Residual codes; unclassified (1 source) 38 weeks gestation of ; Translations: [38 weeks gestation of ] Onset: 01-26-2024 Episodic Results Test Name Value Interpretation Reference Range Facility [facility] 01-12-2025 [facility] HNO ID: [id number] Author: ANUM SAAVEDRA RT(R) Service: Radiology Author Type: Technologist Type: [facility] Filed: 01/12/2025 10:41 Note Text: Radiology Service Progress Note PATIENT NAME: Alexa Romero DATE OF SERVICE: January 12, 2025 TIME: 10:40 AM PATIENT IDENTITY VERIFICATION COMPLETED USING TWO (2) IDENTIFIERS: Name and Date of confirmed by patient verbally. FALL SCREENING: Has the patient had 2 falls in the last year or 1 fall with injury or currently using an Ambulatory Assistive Device (Walker, Cane, Wheelchair, Crutches, etc.)? No PATIENT GENDER DATA: Assigned female at . status: : No status: NO. PATIENT RELEVANT IMPLANT DATA REVIEWED: Not Applicable PATIENT PRESENTS WITH AN IMPLANTABLE OR ATTACHED DISTILLATION OPERATOR HELPER: No RADIOLOGY DEPARTMENT: CT; Exam(s) Completed: Brain PERIPHERAL IV DATA: Not applicable SIGNED BY: RT Edmundo(R) January 12, 2025 10:40 AM Normal [facility] Basic metabolic 2000 panelon 01-12-2025 Anion gap [Moles/Vol] 6 mmol/L Low 8-15 [facility] Comment on above: Order Comment: Speci men Type: BLOOD SPECIMEN Ordering Facility: [facility] Address: [address] [place] [id number] Performed By: #### 2 4321-2, 67421-1 #### [facility] CLIA [id number] [address] [place], [place] [id number] [place] Calcium [Mass/Vol] 9.1 mg/dL Normal 8.5-10.2 [facility] Comment on above: Order Comment: Speci men Type: BLOOD SPECIMEN Ordering Facility: [facility] Address: [address] [place] [address] Performed By: #### 2 432-2, #### [facility] CLIA [id number] [address] [place], [place] [address] [place] Chloride [Moles/Vol] 104 mmol/L Normal 98-107 [facility] Comment on above: Order Comment: Speci men Type: BLOOD SPECIMEN Ordering Facility: [facility] Address: [address] [place] [address] Performed By: #### 2 432-2, #### [facility] CLIA [id number] [address] [place] [address] [place] CO2 [Moles/Vol] 26 mmol/L Normal 22-30 [facility] Comment on above: Order Comment: Speci men Type: BLOOD SPECIMEN Ordering Facility: [facility] Address: [address] [place] [address] Performed By: #### 2 2, #### [facility] CLIA [id number] [address] [place], [place] [address] [place] Creatinine [Mass/Vol] 0.63 mg/dL Normal 0.58-0.96 [facility] Comment on above: Order Comment: Speci men Type: BLOOD SPECIMEN Ordering Facility: [facility] Address: [address] [place] [address] Result Comment: Use of this assay is not recommended for patients undergoing treatment with phenindione, due to the potential for falsely depressed results. Performed By: #### 2 4320-2, #### [facility] CLIA [id number] [address] [address] [place] eGFRcr SerPlBld CKD-EPI 2020 127 mL/min/1.73m??? Normal >=60 [facility] Comment on above: Order Comment: Bronwyn rm Type: BLOOD SPECIMEN Ordering Facility: [facility] Address: [address] [place] [address] Result Comment: Gretchen mated Glomerular Filtration Rate (eGFR) is calculated using the 2020 CKD-EPI creatinine equation. This equation utilizes serum creatinine, sex, and age as parameters. The creatinine assay has traceable calibration to isotope dilution-mass spectrometry. Refer to KDIGO guidelines for clinical interpretation. In patients with unstable renal function, e.g. those with acute kidney injury, the eGFR may not accurately reflect actual GFR. Performed By: #### 2 4321-2, 37805-6 #### [facility] CLIA [id number] [address] [place] [address] [place] Glucose [Mass/Vol] 100 mg/dL High 74-99 [facility] Comment on above: Order Comment: Bronwyn rm Type: BLOOD SPECIMEN Ordering Facility: [facility] Address: [address] [place] [address] Result Comment: The [place] Diabetes Association (ADA) provides guidance for cutoff values for fasting glucose and random glucose. The ADA defines fasting as no caloric intake for at least 8 hours. Fasting plasma glucose results between 100 to 125 mg/dL indicate increased risk for diabetes (prediabetes). Fasting plasma glucose results greater than or equal to 126 mg/dL meet the criteria for diagnosis of diabetes. In the absence of unequivocal hyperglycemia, results should be confirmed by repeat testing. In a patient with classic symptoms of hyperglycemia or hyperglycemic crisis, random plasma glucose results greater than or equal to 200 mg/dL meet the criteria for diagnosis of diabetes. Reference: Standards of Medical Care in Diabetes 2016, [place] Diabetes Association. Diabetes Care. 2016.39(Suppl 1). Performed By: #### 2 4321-2, 13845-6 #### [facility] CLIA [id number] [address] [place] [address] [place] Potassium [Moles/Vol] 4.0 mmol/L Normal 3.7-5.1 [facility] Comment on above: Order Comment: Bronwyn rm Type: BLOOD SPECIMEN Ordering Facility: [facility] Address: [address] [place], [place] [id number] Performed By: #### 2 4321-2, #### [facility] CLIA [id number] [address] [address] [place] [facility] Sodium [Moles/Vol] 136 mmol/L Normal 136-144 [facility] Comment on above: Order Comment: Speci men Type: BLOOD SPECIMEN Ordering Facility: [facility] Address: [address] [place] [address] Performed By: #### 2 4321-2, #### [facility] CLIA [id number] [address] [address] [place] Urea nitrogen [Mass/Vol] 10 mg/dL Normal 7-21 [facility] Comment on above: Order Comment: Speci men Type: BLOOD SPECIMEN Ordering Facility: [facility] Address: [address] [place] [address] Performed By: #### 2 4321-2, #### [facility] CLIA [id number] [address] [address] [facility] CNOVon 01-12-2025 CNOV Office Visit (UCMNCA ) ALEXA ROMERO ([id number]) 1 F Date Time Provider Department 01/12/25 8:35 AM ANAY CARRILLO [facility] During your visit today, we recorded the following information about you: Temperature Pulse Respiration Blood pressure 98.1 degrees 81/minute 18/minute 114/84 Weight 90.7 kg Anay Carrillo, DEVELOPMENTAL WRITING INSTRUCTOR.THERMAL INTELLIGENCE ANALYST 01/12/2025 9:40 AM Signed [facility] Subjective Alexa Romero is a 24 year old female. Patient presents with: Headache: Headache, fever and nausea - states started 3 days ago but worsened overnight Headache Pertinent negatives include no fever, no shortness of breath, no nausea and no vomiting. Alexa Romero is a 24-year-old female presenting with a severe headache and fever. Alexa reports a severe headache and fever that began 4 days ago. The headache is described as pounding and is exacerbated by sudden movements such as stretching or coughing. She notes that the headache was severe enough to bring her to tears upon waking this morning. She has been taking 1000 mg of ibuprofen, which has provided some relief, allowing her to sleep, but the headache persists. She denies any history of migraines, neck pain, or stiffness. She also reports photophobia. Alexa has also experienced intermittent fevers since , with the highest recorded temperature being 101?F. She reports mild nasal congestion but denies any cough. 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 She has a known allergy to acetaminophen, which causes emesis and diarrhea. She is not currently . ALLERGIES[1] Review of Systems Constitutional: Negative for chills, fatigue and fever. HENT: Negative for tinnitus. Eyes: Negative for photophobia and visual disturbance. Respiratory: Negative for shortness of breath and wheezing. Gastrointestinal: Negative for abdominal pain, diarrhea, nausea and vomiting. Musculoskeletal: Negative for neck pain. Neurological: Positive for headaches. Negative for dizziness, syncope, facial asymmetry, speech difficulty, weakness, light-headedness and numbness. Objective BP 114/84 Pulse 81 Temp 36.7 ?C (98.1 ?F) (Temporal) Resp 18 Wt 90.7 kg (200 lb) LMP 12/28/2016 SpO2 100% BMI 35.43 kg/m? Physical Exam Vitals and nursing note reviewed. Constitutional: General: She is not in acute distress. Appearance: Normal appearance. HENT: Head: Normocephalic and atraumatic. Right Ear: Tympanic membrane normal. Left Ear: Tympanic membrane normal. Nose: Nose normal. Eyes: Extraocular Movements: Extraocular movements intact. Conjunctiva/sclera: Conjunctivae normal. Pupils: Pupils are equal, round, and reactive to light. Cardiovascular: Rate and Rhythm: Normal rate and regular rhythm. Pulses: Normal pulses. Heart sounds: Normal heart sounds. Pulmonary: Effort: Pulmonary effort is normal. Breath sounds: Normal breath sounds. Abdominal: General: Abdomen is flat. There is no distension. Palpations: Abdomen is soft. Tenderness: There is no abdominal tenderness. Musculoskeletal: Cervical back: Normal range of motion and neck supple. No rigidity. Skin: General: Skin is warm and dry. Capillary Refill: Capillary refill takes less than 2 seconds. Neurological: Mental Status: She is alert. Comments: Cranial nerves II through XII grossly intact without focal neurological deficit. Upper and lower extremity motor strength 5/5, finger-to- nose normal. Romberg test negative.Normal ambulation {ASSESSMENT/PLAN: 1. Acute intractable headache, unspecified headache type - ICD9: 784.0, ICD10: R51.9 (primary diagnosis) Severe, persistent headache unresponsive to 1000 mg of ibuprofen. No history of migraines. Neurological exam is stable. No neck stiffness or photophobia reported. - [facility] for further evaluation, including potential CT - Advised patient to report intractable headache with no history of migraine at ER. -Due to all the symptoms that patient presented with today ER is recommended . [facility] -Pt is stable and will go with family, declines any EMS service -Pt agrees and understands the plan -Follow up as directed - Patient left the urgent care in stable condition, no in acute distress 2. Acute non-recurrent frontal sinusitis - ICD9: 461.1, ICD10: J01.10 - Will begin treatment with Zithromax pack as directed - The patient should also be given warm salt water gargles, throat lozenges and/or OTC throat spray as needed and nasal saline gtts and suction prn for the first 5-7 days of treatment. - Supportive care with plenty of fluids, rest, and analgesia prn. (more content not included)... Normal [facility] CT BRAIN WO IVCONon 01-13-[address] BRAIN WO IVCON * * *Final Report* * * DATE OF EXAM: Jan 12 2025 10:45AM [facility] 0504 - CT BRAIN WO IVCON / PROCEDURE REASON: Headache, sudden, severe * * * * Physician Interpretation * * * * EXAMINATION: CT BRAIN WO IVCON CLINICAL HISTORY: Headache TECHNIQUE: Serial axial images without IV contrast were obtained from the vertex to the foramen magnum. MQ: [id number]_3 CT Radiation dose: Integrated Dose-Length Product (DLP) for this visit = mGy*cm CT Dose Reduction Employed: COMPARISON: None. RESULT: Post-operative change: None. Acute change: No evidence of an acute infarct or other acute parenchymal process. Hemorrhage: No evidence of acute intracranial hemorrhage. ECASS hemorrhagic transformation score: Not Applicable Mass Lesion / Mass Effect: There is no evidence of an intracranial mass or extraaxial fluid collection. No significant mass effect. Chronic change: None apparent. Parenchyma: There is no significant volume loss. The brain parenchyma is otherwise within normal limits for age. Ventricles: The ventricles are within normal limits of size and configuration for age. Paranasal sinuses and skull base: The visualized paranasal sinuses are grossly clear. The skull base and imaged soft tissues are unremarkable. Localizer images: No additional findings. IMPRESSION: Within normal limits. Oleo Hasher And Renderer: [facility] Luis Transcribe Date/Time: Jan 12 2025 10:46A Dictated by : LINDSEY SERNA MD This examination was interpreted and the report reviewed and electronically signed by: LINDSEY SERNA MD on Jan 12 2025 10:47AM EST [id number] Normal [facility] ED PROV NOTEon 01-12-2025 ED PROV NOTE HNO ID: [id number] Author: VIJAY SMART MD Service: Emergency Medicine Author Type: Physician Type: ED Provider Notes Filed: 01/14/2025 03:52 Note Text: ED Provider Note Patient Name: Alexa Romero : 2000 SERVICE DATE: 01/12/25 History Patient presents with: Headache: Pt complaining of frontal headache worse when bending over with sinus congestion that started on ; Stated was seen at urgent care today and diagnosed with a sinus infection and given prescription for zithromax but told to come to ED for further eval; The patient is a pleasant, obese 24 year old female with remote not currently , who presents to the ED for evaluation of a frontal headache over the past few days. Patient endorses sinus congestion and discomfort worse when bending forward. She was seen in urgent care and sent here to rule out intracranial hemorrhage. She was given prescriptions to treat sinusitis from the urgent care. Associated symptoms include a low-grade fever, photophobia, and nasal congestion. 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 No reported nuchal rigidity or focal neurologic deficits. PAST MEDICAL HISTORY[1] PAST SURGICAL HISTORY Procedure Laterality Date TONSILLECTOMY AND ADENOIDECTOMY FAMILY HISTORY[2] Social History[3] ALLERGIES[4] Review of Systems All other systems reviewed and are negative. Physical Exam Vitals [01/12/25 0959] BP Pulse Temp Temp src Resp SpO2 Weight Height 138/91 (!) 102 36.5 ?C (97.7 ?F) Oral 20 98 % 104.3 kg (230 lb) 1.626 m (5' 4) Physical Exam Vitals and nursing note reviewed. Constitutional: Appearance: She is well-developed. She is not ill-appearing or toxic-appearing. HENT: Head: Normocephalic and atraumatic. Right Ear: External ear normal. Left Ear: External ear normal. Eyes: Conjunctiva/sclera: Conjunctivae normal. Neck: Trachea: No tracheal deviation. Cardiovascular: Rate and Rhythm: Normal rate and regular rhythm. Heart sounds: Normal heart sounds. Pulmonary: Effort: Pulmonary effort is normal. No respiratory distress. Breath sounds: Normal breath sounds. No wheezing or rales. Abdominal: General: There is no distension. Palpations: Abdomen is soft. Tenderness: There is no abdominal tenderness. There is no guarding. Musculoskeletal: Cervical back: Normal range of motion. No rigidity. Skin: General: Skin is warm and dry. Neurological: Mental Status: She is alert. Mental status is at baseline. Sensory: No sensory deficit. Motor: No weakness. Coordination: Coordination normal. Diagnostic Testing ED Labs Ordered and Reviewed BASIC METABOLIC PANEL - Abnormal; Notable for the following components: Result Value Ref Range Glucose 100 (*) 74 - 99 mg/dL Anion Gap 6 (*) 8 - 15 mmol/L All other components within normal limits MAGNESIUM - Normal CT BRAIN WO IVCON Final Result IMPRESSION: Within normal limits. Oleo Hasher And Renderer: RAFFY Transcribe Date/Time: Jan 12 2025 10:46A Dictated by : LINDSEY SERNA MD This examination was interpreted and the report reviewed and electronically signed by: LINDSEY SERNA MD on Jan 12 2025 10:47AM EST Procedures ED Course / Clinical Impression ED Course as of 01/14/25 0352 Vijay Smart's Documentation Sun Jan 12, 2025 1217 Upon reevaluation, the patient's headache has improved by approximately 50%. CT imaging was negative for an acute intracranial process. She was informed of her reassuring diagnostics. Clinical Impressions as of 01/14/25 0352 Sinus headache Acute frontal sinusitis, recurrence not specified MDM / Disposition / Plan The patient is a pleasant, obese 24 year old female with remote not currently , who presents to the ED for evaluation of a frontal headache over the past few days. Vital signs reviewed. Physical exam as above. Urgent care documentation was reviewed. Patient is not a history of headache disorder and was sent to exclude intracranial hemorrhage. Presentation is atypical for such, but CT imaging was ordered. No nuchal rigidity or confusion making meningoencephalitis unlikely. Headache does not radiate to the vertex nor does she have a known hypercoagulable state making cerebral venous sinus thrombus unlikely. Laboratory studies are reassuring. Patient was provided with a migraine cocktail. Please refer to above for additional medical decisionmaking. Follow-up instructions and return precautions were discussed. All questions were answered. The patient was agreeable with this plan. The patient was discharged in stable condition. SIGNATURE: Vijay Smart MD - [1] PAST MEDICAL HISTORY Diagnosis Date Abnormal menstrual periods 2012 Age 11, Normal Currently Acne vulgaris 03/27/2015 Depression 03/02/2015 Family history of cardiomyopathy 12/01/2016 Overweight 12/01/2016 Patellofemoral stress syndrome of left knee 12/23/2015 [2] FAMILY HISTO (more content not included)... Normal [facility] Magnesium SerPl-mCncon 01-12 Magnesium [Mass/Vol] 1.8 mg/dL Normal 1.7-2.3 [facility] Comment on above: Order Comment: Speci men Type: BLOOD SPECIMEN Ordering Facility: [facility] Address: [address] [place] [address] Performed By: #### 2 4321-2, 16080-4 #### [facility] CLIA [id number] [facility] [place] [address] [place] Genital Culture Comprehensiv thomas 12-21-2024 VAC Reason for Exam: vaginal discharge No Gardnerella, Neisseria or beta-hemolytic Streptococcus isolated. Presumptive C albicans Amount Growth 2+ Normal [facility] Comment on above: Performed By: #### M 100.3200, M100.1999 ####[facility] [id number] [place], [place], [address] Gram Stainon 12-19-2024 GS Reason for Exam: vaginal discharge Gram Stain 1+ Gram positive cocci in chains 2+ Gram positive rods No Gram negative diplococci Rare White Blood Cells Score = 2 Interpretation: 0-3 Normal, 4-6 Intermediate, 7-10 Positive BV Normal [facility] Comment on above: Performed By: #### M 100.3200, M100.1999 ####[facility] [address] [place], [place], [address] L[facility] Office Visit Reporton 12-19-2024 [facility] Office Visit Report [facility] [address], [address] [place] [address] OFFICE VISIT Date of Service: 12/19/24 MR#: [id number] Acct: [id number] Name: ALEXA ROMERO Rep #: [id number] : 2000 Provider: SOL Sunshine Age/Sex: 24/F Location: [facility] Status: Signed Intake Vital Signs 09/12/24 08:19 12/19/24 14:19 Height 5 ft 4 in 5 ft 4 in Weight: 235 lb 8 oz BMI 40.4 BP 116/80 Intake Visit Reasons: Vaginal Itching and Pressure (per portal message) 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 Is patient in pain?: No Allergies acetaminophen (From Tylenol) Adverse Reaction (Verified 12/19/24 14:17) Vomiting Medications ???Medication ???Instructions ???Recorded ???Confirmed ???Type lorazepam 1 mg tablet (Ativan) 1 mg PO ONCE #1 TAB 08/05/2412/19 Rx norgestimate 0.25 mg-ethinyl 1 tab PO QDAY #30 tabs 08/08/24 Rx estradiol 0.035 mg tablet (Sprintec (28)) fluconazole 150 mg tablet 150 mg PO Q3D 2 doses #2 tabs 12/0312/19/24 Rx Is last menstrual period known: No Post menopausal: No Patient : No : No Control Method: mirena [facility] Medical History Spotting in early Amenorrhea Vitamin D deficiency Acute cystitis PTSD (post-traumatic stress disorder) Renal colic on left side Kidney stones Patellofemoral stress syndrome of left knee Acne vulgaris Anxiety and depression Surgical History History of tonsillectomy and adenoidectomy Family History Mother Heart disease IHSS, Dvyhc-Abwtkuyzu-Nnijx Syndrome Bleeding disorder Factor V Family history of recurrent miscarriage x2 Idiopathic hypertrophic subaortic stenosis Father bipolar Social History adopted: No household members: significant other number of children: 1 current occupational status: 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: No pets and animals: Yes pets and animals: dog(s) history of recent travel: No sexually active: Yes Smoking Status: Never smoker alcohol intake: never substance use type: does not use well-balanced diet: daily or most days caffeine: Yes Type: tea Number of servings: 1 eating out: 1-3 times/week during the past year weight has: remained stable what type of physical activity do you participate in: none lori/mosque: None seatbelt use: always do you feel safe at home: Yes additional social history: Boyfriend-Genaro HPI Vaginal Itching and Pressure (per portal message) Details: ALEXA ROMERO is a 24 year old who presents for vaginal itching. Has not noticed a discharge. She reports she noticed on Monday intercourse there was a little bit of burning. She reports she notes a mild odor as well. She denies any concerns for STDs. Denies fever chills or pelvic pain. Mirena in place. Placed 09/2024. Female Reproductive History Questions: metorrhagia: No, sexually active: Yes, dyspareunia: No and PCB: No History 1 Elective abortions Hx Para 1 Spontaneous abortions Hx # Term Pregnancies Ectopic pregnancies Hx # Pregnancies Multiple births # of living children 1 Past Pregnancies Del. Date Name GA/Weeks Outcome Route Bth Weight [facility]24 [place] [facility] live - full term 7lbs 3oz Female [facility] ROS Const Constitutional: Denies chills, fatigue or fever(s) GI GI: Denies abdominal pain or nausea : Reports vaginal odor and vaginal pruritus; Denies difficulty voiding, dysuria, hematuria, pelvic pain, vaginal discharge or vaginal dryness Skin Skin/Breast: Denies rash Exam Const General: cooperative, healthy appearing, no acute distress and well groomed Nutritional Appearance: well nourished Orientation: oriented x3 HENMT Head: normal to inspection and normocephalic Resp Effort Inspection: normal respiratory effort and able to speak in complete sentences GI Inspection: normal to inspection Palpation: soft External Female Exam: normal external appearance and normal appearance of the urethra Urethra: normal appearance of the urethra Speculum Exam - Vagina: abnormal vaginal discharge white and malodorous, no lesions and No vaginal bleeding Speculum Exam - Cervix: normal appearance of the cervix (IUD strings at os.) Bimanual Exam- Vagina Uterus: normal bimanual exam OB/External Speculum: No vaginal bleeding Speculum Exam: no vaginal bleeding Skin General: no rashes or lesions noted Neuro General: patient oriented x3 Psych Appearance: well kempt Affect: amee (more content not included)... Normal [facility] Lime Slaker Office Visit Reporton 09-12-2024 L[facility] Slaker Office Visit Report [facility] [address], [address] [place] [address] OFFICE VISIT Date of Service: 09/12/24 MR#: [id number] Acct: [id number] Name: ALEXA ROMERO PAULA Rep #: [id number] : 2000 Provider: LUIS Means ams Age/Sex: 23/F Location: [facility] Status: Signed Intake Vital Signs 08/05/24 10:45 09/12/24 08:18 09/12/24 08:19 Height 5 ft 4 in 5 ft 4 in 5 ft 4 in Weight: 227 lb 6 oz 225 lb 4 oz BMI 39.0 38.6 BP 132/85 H 121/89 H Intake Visit Reasons: Mirena Insertion Chief Complaint: Mirena Insertion 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 Is patient in pain?: No Allergies acetaminophen (From Tylenol) Adverse Reaction (Verified 09/12/24 08:18) Vomiting Medications ???Medication ???Instructions ???Recorded ???Confirmed ???Type lorazepam 1 mg tablet (Ativan) 1 mg PO ONCE #1 TAB 08/05/2409/12 Rx norgestimate 0.25 mg-ethinyl 1 tab PO QDAY #30 tabs 08/08/24 Rx estradiol 35 mcg tablet (Sprintec (28)) Is last menstrual period known: Yes Last Menstrual Period: 09/10/24 Post menopausal: No Patient : No Control Method: Mirena PFSH PFSH Medical History Spotting in early Amenorrhea Vitamin D deficiency Acute cystitis PTSD (post-traumatic stress disorder) Renal colic on left side Kidney stones Patellofemoral stress syndrome of left knee Acne vulgaris Anxiety and depression Surgical History History of tonsillectomy and adenoidectomy Family History Mother Heart disease IHSS, Djlfg-Ociwozgtw-Keaoa Syndrome Bleeding disorder Factor V Family history of recurrent miscarriage x2 Idiopathic hypertrophic subaortic stenosis Father bipolar Social History adopted: No household members: significant other number of children: 1 current occupational status: 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: No pets and animals: Yes pets and animals: dog(s) history of recent travel: No sexually active: Yes Smoking Status: Never smoker alcohol intake: never substance use type: does not use well-balanced diet: daily or most days caffeine: Yes Type: tea Number of servings: 1 eating out: 1-3 times/week during the past year weight has: remained stable what type of physical activity do you participate in: none lori/mosque: None seatbelt use: always do you feel safe at home: Yes additional social history: Boyfriend-Genaro History 1 Elective abortions Hx Para 1 Spontaneous abortions Hx # Term Pregnancies Ectopic pregnancies Hx # Pregnancies Multiple births # of living children 1 Past Pregnancies Del. Date Name GA/Weeks Outcome Route Bth Weight Infant Gen Labor Lgth Anesthesia Del Locatn Provider FOB 02/01/24 [place] 39 live - full term 7lbs 3oz Female [facility] HPI Mirena Insertion Details: ALEXA ROMERO is a 23 year old who presents for IUD insertion. discussed risks and benefits and agrees to procedure Female Reproductive History Last Menstrual Period: 09/10/24 Questions: sexually active: Yes, dyspareunia: No and PCB: No ROS Const Constitutional: Reports system reviewed and no additional complaints, except as documented Cardio Card: Reports system reviewed and no additional complaints, except as documented Resp Resp: Reports system reviewed and no additional complaints, except as documented GI GI: Reports system reviewed and no additional complaints, except as documented : Reports system reviewed and no additional complaints, except as documented; Denies difficulty voiding, dysuria or urinary frequency Skin Skin/Breast: Reports system reviewed and no additional complaints, except as documented Neuro Neuro: Reports system reviewed and no additional complaints, except as documented Psych Psych: Reports system reviewed and no additional complaints, except as documented Exam Const General: cooperative, healthy appearing, comfortable and no acute distress Resp Effort Inspection: normal respiratory effort, able to speak in complete sentences and symmetric chest movement GI Inspection: normal to inspection Palpation: soft External Female Exam: normal external appearance and normal appearance of the urethra Urethra: normal appearance of the urethra Speculum Exam - Vagina: normal appearance of the vagina and normal vaginal discharge Speculum Exam - Cervix: normal appearance of the cervix and nontender Bimanual Exam- Vagina Uterus: normal bimanual exam, normal palpation, uterine size normal, No tender and non-tender Bim (more content not included)... Normal [facility] Office Visit Reporton 08-05-2024 [facility] Office Visit Report [facility]'s [address], [address] [place] [address] OFFICE VISIT Date of Service: 08/05/24 MR#: [id number] Acct: [id number] Name: ALEXA ROMERO PAULA Rep #: [id number] : 2000 Provider: Dr. 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 History Spotting in early Amenorrhea Vitamin D deficiency Acute cystitis PTSD (post-traumatic stress disorder) Renal colic on left side Kidney stones Patellofemoral stress syndrome of left knee Acne vulgaris Anxiety and depression Surgical History History of tonsillectomy and adenoidectomy Family History Mother Heart disease IHSS, Swxyo-Arhnspixd-Okkli Syndrome Bleeding disorder Factor V Family history of recurrent miscarriage x2 Idiopathic hypertrophic subaortic stenosis Father bipolar Social History adopted: No household members: significant other number of children: 1 current occupational status: 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: No pets and animals: Yes pets and animals: dog(s) history of recent travel: No sexually active: Yes Smoking Status: Never smoker alcohol intake: never substance use type: does not use well-balanced diet: daily or most days caffeine: Yes Type: tea Number of servings: 1 eating out: 1-3 times/week during the past year weight has: remained stable what type of physical activity do you participate in: none lori/mosque: None seatbelt use: always do you feel safe at home: Yes additional social history: Boyfriend-Genaro HPI Discuss different control options Details: ALEXA ROMERO is a 23 year old who presents for discussion about control. She does not always get a period during the placebo week and this makes her nervous. She would like to go back to the IUD but has a lot of anxiety about it. History 1 Elective abortions Hx Para 1 Spontaneous abortions Hx # Term Pregnancies Ectopic pregnancies Hx # Pregnancies Multiple births # of living children 1 Past Pregnancies Del. Date Name GA/Weeks Outcome Route Bth Weight Infant Gen Labor Lgth Anesthesia Del Locatn Provider FOB 02/01/24 Phoebe 39 live - full term 7lbs 3oz Female [facility] SM ROS Const ROS Unobtainable: All systems reviewed are unremarkable except as noted in H Resp Resp: Reports system reviewed and no additional complaints, except as documented; Denies cough GI GI: Reports as per HPI Psych Psych: Reports system reviewed and no additional complaints, except as documented Exam Const General: cooperative, healthy appearing, comfortable and no acute distress Resp Effort Inspection: normal respiratory effort Skin General: no rashes or lesions noted Psych Appearance: grossly normal Speech and Movement: speech and movement normal Coding Level of Care Code Off vis,est,level 3 Diagnoses Contraceptive management Z30.9 Assessment and Plan Assessment and Plan (1) Contraceptive management: Status: Acute Plan: plan for mirena IUD will give ativan prior to procedure. start back on ocps. is on menses now. Medications: New lorazepam (Ativan) take 20 min prior to procedure. DO not drive 1 mg PO ONCE 1 TAB 0RF 08/05/24 1121 Date Sandra Edwards Signature: Date (if applicable) CC: Normal [facility] Lime Slaker Office Visit Reporton 03-18-2024 L[facility] Office Visit Report [facility]'s [address], [address] [place] [address] OFFICE VISIT Date of Service: 03/18/24 MR#: [id number] Acct: [id number] Name: ALEXA ROMERO Rep #: [id number] : 2000 Provider: Dr. 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 Is patient in pain?: No Allergies acetaminophen (From Tylenol) Adverse Reaction (Verified 03/18/24 15:01) Vomiting Medications ???Medication ???Instructions ???Recorded ???Confirmed ???Type buspirone 7.5 mg tablet 15 mg (2 x 7.5 mg) PO TID PRN 03/18/24 03/18/24 Rx anxiety #60 tabs norgestimate 0.25 mg-ethinyl 1 tab PO DAILY #84 tabs 03/18/24 03/18/24 Rx estradiol 35 mcg tablet (Sprintec (28)) : No PFSH Medical History Spotting in early Amenorrhea Vitamin D deficiency Acute cystitis PTSD (post-traumatic stress disorder) Renal colic on left side Kidney stones Patellofemoral stress syndrome of left knee Acne vulgaris Anxiety and depression Surgical History History of tonsillectomy and adenoidectomy Family History Mother Heart disease IHSS, Ncszq-Docemcxlh-Scmjn Syndrome Bleeding disorder Factor V Family history of recurrent miscarriage x2 Idiopathic hypertrophic subaortic stenosis Father bipolar Social History (Updated 03/18/24 @ 15:01 by Gloria Gudino) adopted: No household members: significant other number of children: 1 current occupational status: 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: No pets and animals: Yes pets and animals: dog(s) history of recent travel: No sexually active: Yes Smoking Status: Never smoker alcohol intake: never substance use type: does not use well-balanced diet: daily or most days caffeine: Yes Type: tea Number of servings: 1 eating out: 1-3 times/week during the past year weight has: remained stable what type of physical activity do you participate in: none lori/mosque: None seatbelt use: always do you feel safe at home: Yes additional social history: Boyfriend-Genaro History 1 Elective abortions Hx Para 1 Spontaneous abortions Hx # Term Pregnancies Ectopic pregnancies Hx # Pregnancies Multiple births # of living children 1 Past Pregnancies Del. Date Name GA/Weeks Outcome Route Bth Weight [facility] [place] 39 live - full term 7lbs 3oz Female [facility] Depression Screen PHQ-2/9 PHQ-2 Over the last 2 weeks, how often have you been bothered by any of the following problems? 1. Little interest or pleasure in doing things: several days 2. Feeling down, depressed, or hopeless: nearly every day Total score: 4 If score is 2 or greater, continue 3. Trouble falling or staying asleep, or sleeping too much: nearly every day 4. Feeling tired or having little energy: not at all 5. Poor appetite or overeating: not at all 6. Feeling bad about yourself - or that you are a failure or have let yourself and your family down: nearly every day 7. Trouble concentrating on things, such as reading the newspaper or watching television: not at all 8. Moving or speaking so slowly that other people could have noticed? - Or the opposite - being so fidgety or restless that you have been moving around a lot more than usual: not at all 9. Thoughts that you would be better off or of hurting yourself in some way: not at all Total score: 10 Source: Developed by Drs. Osmin L. ChanduJanet montes, Deion Arceo and colleagues, with an educational marcia from [employer]. Post HPI Routine Follow-Up: Details: ALEXA ROMERO is a 23 year old who presents for her post visit. Infant Feeding: Bottle Menses resumed: No [place] since delivery: No Last Pap:: 09/22/22 Control Method: wants ocps ROS Const Reports system reviewed and no additional complaints, except as documented GI Reports system reviewed and no additional complaints, except as documented, Denies bloating, Denies constipation, Denies nausea and Denies vomiting Reports system reviewed and no additional complaints, except as documented, Denies abnormal vaginal bleeding, Denies pelvic pain, Denies sexual dysfunction, Denies urinary incontinence, Denies urinary hesit (more content not included)... Normal [facility] Lime Slaker Office Visit Reporton 02-14-2024 Lime Slaker Office Visit Report [facility] [address], [address] [place] [address] OFFICE VISIT Date of Service: 02/14/24 MR#: [id number] Acct: [id number] Name: ALEXA ROMERO Rep #: [id number] : 2000 Provider: SOL elizabeth Age/Sex: 23/F Location: [facility] [place] Status: Signed Intake Vital Signs 02/05/24 12:33 02/08/24 13:15 02/14/24 15:43 02/14/24 15:47 Height 5 ft 4 in 5 ft 4 in 5 ft 4 in 5 ft 4 in Weight: 208 lb 208 lb 4 oz BMI 35.6 35.7 BP 101/70 108/82 H Intake Visit Reasons: 2 WK INCISION CK Chief Complaint: 2 Week 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 Is patient in pain?: No Allergies acetaminophen (From Tylenol) Adverse Reaction (Verified 02/14/24 15:42) Vomiting Medications ???Medication ???Instructions ???Recorded ???Confirmed ???Type PNV 153-FA 400 mcg-om3 35 mg-dha 1 tab PO DAILY 06/23/23 02/14/24 History 25 mg-epa 5 mg-fish oil chew tablet buspirone 7.5 mg tablet 15 mg (2 x 7.5 mg) PO TID PRN 08/23/23 02/14/24 Rx anxiety #60 tabs Is last menstrual period known: No Post menopausal: No Patient : No : No PFSH Medical History Spotting in early Amenorrhea Vitamin D deficiency Acute cystitis PTSD (post-traumatic stress disorder) Renal colic on left side Kidney stones Patellofemoral stress syndrome of left knee Acne vulgaris Anxiety and depression Surgical History History of tonsillectomy and adenoidectomy Family History (Updated 01/31/24 @ 19:10 by Lauren Read) Mother Heart disease IHSS, Kuhdd-Byrjufdvm-Agbgu Syndrome Bleeding disorder Factor V Family history of recurrent miscarriage x2 Idiopathic hypertrophic subaortic stenosis Father bipolar Social History adopted: No household members: significant other current occupational status: 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: No pets and animals: Yes pets and animals: dog(s) history of recent travel: No sexually active: Yes Smoking Status: Never smoker alcohol intake: never substance use type: does not use well-balanced diet: daily or most days caffeine: Yes Type: tea Number of servings: 1 eating out: 1-3 times/week during the past year weight has: remained stable what type of physical activity do you participate in: none lori/mosque: None seatbelt use: always do you feel safe at home: Yes additional social history: Boyfriend-Genaro HPI 2 WK INCISION CK Details: ALEXA ROMERO is a 23 year old who presents for 2 week postop c section per Dr Blake. States doing well physically. Emotionally she has had some tearfulness. Did start taking her buspirone prn and has taken twice in last 5 days. States is much better then last week and does not want to start another medication. She is also pumping only and this has decreased her anxiety. History 1 Elective abortions Hx Para 1 Spontaneous abortions Hx # Term Pregnancies Ectopic pregnancies Hx # Pregnancies Multiple births # of living children 1 Past Pregnancies Del. Date Name GA/Weeks Outcome Route Bth Weight Gen Labor Lgth Anesthesia Del Locatn Provider FOB 02/01/24 [place] 39 live - full term 7lbs 3oz Female [facility] SM ROS Const Constitutional: Reports as per HPI Eyes Eyes: Reports system reviewed and no additional complaints, except as documented GI GI: Denies abdominal pain or change in bowel habits : Reports as per HPI Psych Psych: Reports as per HPI Exam Const General: cooperative and no acute distress Orientation: oriented x3 GI Inspection: incision (well healed, nonerythematous) Palpation: soft and nontender Coding Level of Care Code No Charge Diagnoses Postop check Z09 delivery delivered O82 Assessment and Plan Assessment and Plan (1) Postop check: (2) delivery delivered: Status: Acute Comment: SM LTCS cat II tracing phoebe 39 IOL GHTN Medications: Resumed buspirone 15 mg (2 x 7.5 mg) PO TID PRN 60 tabs 0RF anxiety Plan Routine pp care Call if emotional changes increase. 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 Patient denies any headaches, or blurry vision at this time. BP 101/70. Assessment and Plan Assessment and Plan (1) delivery delivered: Status: Acute Comment: LTCS cat II tracing phoebe 39 IOL GHTN (2) induced hypertension: Status: Acute Clinical Quality Measures Falls Risk Screening/Assistive Devices Have you fallen in the past year?: No 02/08/24 1743 Date Sandra Edwards Signature: Date (if applicable) CC: Normal [facility] MR/BMS.BBCon 02-05-2024 MR/BMS.BBC [facility] [address] [place] [address] OFFICE VISIT Date of Service: 02/05/24 MR#: [id number] Acct: [id number] Name: ALEXA ROMERO Rep #: [id number] : 2000 Provider: Aleksandra Musa NP Age/Sex: 23/F [place] [facility] [place]: Signed Intake Vital Signs 01/31/24 14:53 02/05/24 12:33 Height 5 ft 4 in 5 ft 4 in Intake Visit Reasons: Visit Chief Complaint: assessment, nipple pain Accompanied by: Significant Other Allergies acetaminophen (From Tylenol) Adverse Reaction (Verified 01/31/24 14:53) Vomiting : Yes PFSH PFSH Medical History Spotting in early Amenorrhea Vitamin D deficiency Acute cystitis PTSD (post-traumatic stress disorder) Renal colic on left side Kidney stones Patellofemoral stress syndrome of left knee Acne vulgaris Anxiety and depression Surgical History History of tonsillectomy and adenoidectomy Family History (Updated 01/31/24 @ 19:10 by Lauren Read) Mother Heart disease IHSS, Ubbkz-Qvusrqfnp-Zylnu Syndrome Bleeding disorder Factor V Family history of recurrent miscarriage x2 Idiopathic hypertrophic subaortic stenosis Father bipolar Social History adopted: No household members: significant other current occupational status: 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: No pets and animals: Yes pets and animals: dog(s) history of recent travel: No sexually active: Yes Smoking Status: Never smoker alcohol intake: never substance use type: does not use well-balanced diet: daily or most days caffeine: Yes Type: tea Number of servings: 1 eating out: 1-3 times/week during the past year weight has: remained stable what type of physical activity do you participate in: none lori/mosque: None seatbelt use: always do you feel safe at home: Yes additional social history: Boyfriend-Genaro History 1 Elective abortions Hx Para 0 Spontaneous abortions Hx # Term Pregnancies Ectopic pregnancies Hx # Pregnancies Multiple births # of living children HPI HPI HPI: ALEXA ROMERO, is a 23 F who presents to the office today for assessment, nipple pain. History provided by the patient. ROS ROS Const Constitutional: Denies fever(s) or lethargy : Denies nipple discharge Skin Skin/Breast: Denies breast pain, breast skin changes or nipple discharge Details: q1-3 hours, 12-20 minutes to first side and 0-15 minutes to second side, unsure if milk is starting to come in, having nipple pain with feeds, burning, has noticed cracking to both nipples, no history of thyroid disorders, per patient history of PCOS, has breast changes during Exam Maternal Assessment Breast Assessment Bilateral Breasts: Soft Nipple Assessment Bilateral Nipples: Everted Areolar Tissue Areolar Tissue: Pliable Assessment Baby Feeding History Is your baby latching onto the breast: Yes Number of Breast Feedings in 24 hours: q1-3 hours Minutes per breast: First Breast: 12-20 Minutes per breast: Second Breast: 0-15 Supplements Supplement Type:: None Breast Pumping Type of Breast Pump: Evenflo, Hand Pump Frequency: has not started pumping Goals Breast Feeding Goals: Exclusive Exam Const General: comfortable and no acute distress Orientation: alert and oriented x3 Chest Breast inspection: normal inspection of the breasts Breast palpation: normal palpation of the breasts Other: bilateral nipples reddened, vertical crack to center of both nipples, no bleeding present Resp Effort Inspection: normal respiratory effort Skin General: no rashes or lesions noted Psych Appearance: grossly normal Mental Status: mental status grossly normal Affect: normal affect Assessment and Plan Assessment and Plan (1) nipple pain: Plan: Combination nipple cream ordered, patient educated on use. Assisted patient to pull babies chin down to deepen latch and prevent further nipple breakdown. Follow up if no improvement or for any new/worsening symptoms. (2) Care and examination of lactating mother: Plan: Latch Score L - Latch Latch: Grasps breast, tongue down, lips flanged, rhymic sucking (2) A - Audible Swallowing Audible Swallowing: A few with stimulation (1) T - Type of Nipple Type of Nipple: Everted (after stimulation) (2) C - Comfort (Breast/Nipple) Comfort (Breast/Nipple): Engorged/cracked/blee ding/lg. blisters/bruises/patricia re discomfort (0) (significant discomfort wit (more content not included)... Normal [facility] CBC-Complete Blood Cnt No Di ffon 02-02-2024 Erythrocyte distribution width (RBC) [Ratio] 12.9 % Normal 11.6-14.6 [facility] Comment on above: Order Comment: Comme nts: Day #1Reason for Laboratory Test Performed By: #### L 100.0500 ####[facility] [address] [place], [address] Hematocrit (Bld) [Volume fraction] 34.0 % Low 37-47 [facility] Comment on above: Order Comment: Comme nts: Day #1Reason for Laboratory Test Performed By: #### L 100.0500 ####[facility] [address] [place], [address] Hemoglobin (Bld) [Mass/Vol] 11.8 g/dL Low 12.0-15.0 [facility] Comment on above: Order Comment: Comme nts: Day #1Reason for Laboratory Test Performed By: #### L 100.0500 ####[facility] [address] [place], [address] MCH (RBC) [Entitic mass] 29.9 pg Normal 27.0-32.0 [facility] Comment on above: Order Comment: Comme nts: Day #1Reason for Laboratory Test Performed By: #### L 100.0500 ####[facility] [address] [place], [address] MCHC (RBC) [Mass/Vol] 34.7 g/dL Normal 32-36 [facility] Comment on above: Order Comment: Comme nts: Day #1Reason for Laboratory Test Performed By: #### L 100.0500 ####[facility] [address] [place], [address] MCV (RBC) [Entitic vol] 86.3 fL Normal 81-99 [facility] Comment on above: Order Comment: Comme nts: Day #1Reason for Laboratory Test Performed By: #### L 100.0500 ####[facility] [address] [place], [address] Platelet mean volume (Bld) [Entitic vol] 10.9 fL Normal 6.2-12.0 [facility] Comment on above: Order Comment: Comme nts: Day #1Reason for Laboratory Test Performed By: #### L 100.0500 ####[facility] [address] [place], [address] Platelets (Bld) [#/Vol] 239 10*3/uL Normal 150-450 [facility] Comment on above: Order Comment: Comme nts: Day #1Reason for Laboratory Test Performed By: #### L 100.0500 ####[facility] [address] [place], [address] RBC (Bld) [#/Vol] 3.94 10*6/uL Low 4.2-5.4 [facility] Comment on above: Order Comment: Comme nts: Day #1Reason for Laboratory Test Performed By: #### L 100.0500 ####[facility] [address] [place], [address] RDW SD 40.1 fl Normal 35.1-43.9 [facility] Comment on above: Order Comment: Comme nts: Day #1Reason for Laboratory Test Performed By: #### L 100.0500 ####[facility] [address] [place], [address] WBC (Bld) [#/Vol] 9.7 10*3/uL Normal 4.4-11.0 [facility] Comment on above: Order Comment: Comme nts: Day #1Reason for Laboratory Test Performed By: #### L 100.0500 ####[facility] [address] [place], [address] Discharge Instructionon 01-04 Discharge Instruction [facility] Medical Records Department [address] [place] [address] Instructions for Home/Discharge Instructions 02/01/24 1703 MR#: [id number] Acct: [id number] Name: ALEXA ROMERO Rep #: [id number] : 2000 23 From: Jyotsna Blake MD PCP: Sebastian Physician,No Primary Status:ADM IN Discharge Instructions Follow Up Care Test Results: Test results from this visit will be discussed in further detail at your follow-up appointment, if applicable. Discharge Plan Admission Admit Date/Time: 01/31/24 16:45 Attending Provider: Sandra Mooney Primary Care Provider: Sebastian Physician,No Primary Discharge Orders/Prescriptions Prescriptions: No Action PNV no.469-IQ-ji6-dha-epa -fish 400 mcg-35 mg- 25 mg-5 mg tablet,chewable 1 tab PO DAILY buspirone 7.5 mg tablet 15 mg PO TID PRN (Reason: anxiety) Qty: 60 0RF Rx Instructions: take 1-2 tabs every 8 hours as needed for anxiety Referrals / Follow Up: Sebastian Physician,No Primary [Primary Care Provider] - 02/03/24 1020 Jyotsna Blake MD CC: No Primary Care Physician Signed Normal [facility] Operative Reporton 4 Operative Report [facility] Medical Records Department [address] [place] [address] Operative Report 02/01/24 1703 MR#: [id number] Acct: [id number] Name: ALEXA ROMERO Rep #: [id number] : 2000 23 From: Jyotsna Blake MD PCP: Sebastian Physician,No Primary Status:ADM IN Location: [place] [address] Assessment Plan (1) : QUALIFIERS: Weeks of gestation: 39 weeks Qualified Code(s): Z3A.39 - 39 weeks gestation of COMMENT: Neg GBS. discussed genetic carrier testing, AFP NL (2) Supervision of high-risk : QUALIFIERS: Trimester: third trimester Qualified Code(s): O09.93 - Supervision of high risk , unspecified, third trimester COMMENT: PRR, , CARL 02/05/24, girl Phoebe Lam (3) Schizoid personality disorder: COMMENT: Dx 2018 (4) Family history of heart disease: COMMENT: mom, mom's mom, and uncle have IHSS. - consult to cardiology for echo (5) Abnormal glucose affecting : COMMENT: passed 3 hour gct (6) induced hypertension: (7) Category II heart rate tracing during labor and delivery: Maternal Data Information CARL Calculator Estimated Delivery Date Method Current WG Current Estimate 02/05/24 LMP (Certain) 39w 3d Details Operative Information Date of Procedure: 02/01/24 Pre-Operative Diagnosis: see a/p diagnoses Post-Operative Diagnosis: same Indications Narrative: surgeon: Jyotsna Blake MD Procedure Type: low transverse refrigerator glazier #1: Lucrecia Charles Type of Anesthesia: Epidural Special Medications: none Drain: Gunter to straight drain Estimated Blood Loss: 900 Fluids Replaced: crystalloid Procedure Start Time: 15:26 Procedure Stop Time: 16:30 Findings Description of Procedure: patient was induced for gestational hypertension. Patient underwent induction and then artificial rupture membranes and Pitocin induction. Patient made cervical change and then developed recurrent decelerations therefore the Pitocin was turned off. There was a bradycardia in which Pitocin was turned off and initially an OB ERT was called. heart rate pattern resolved and amnioinfusion was started to help variable decelerations. Overall heart rate pattern was then reassuring and therefore continued expectant management was done. Several hours later patient was still only 6 cm dilated and we were unable to start Pitocin due to minimal variability and then developing recurrent periodic variable decelerations. Despite position changes and amnioinfusion and IV fluid boluses, category 2 tracing persisted and the patient was still 5 to 6 cm, and the decision was made to proceed with primary for arrest of dilation and category 2 tracing. thick meconium fluid present. The patient was placed in the dorsal supine position with leftward tilt. Patient was prepped and draped in the normal sterile fashion. Pfannenstiel skin incision was made with the scalpel and c arried through to the underlying layer of fascia with the scalpel. Fascia was nicked in the midline and the incision extended laterally. The rectus bellies were dissected off superiorly and inferiorly with out complication both sharply and bluntly. The peritoneum was entered digitally. The incision was stretched and a low transverse uterine incision was made with the scalpel. The infant's head was delivered atraumatically followed by the anterior and posterior shoulders without complication the rest of the infant delivered. The cord was clamped and cut and the was handed off to awaiting nurse. The placenta was delivered spontaneously immediately following and was noted to be intact and have a three-vessel cord. The uterus was exteriorized cleared of all clots and debris, and the incision was closed in a single layer closure using #1 Monocryl. The ovaries and fallopian tubes were noted to be within normal limits. The uterus was returned to the maternal abdomen and gutters were cleared of all clots and debris. The peritoneum was closed with 3- 0 Monocryl in a running fashion. Fascia was closed with 0 PDS in a running fashion. Subcutaneous tissue was copiously irrigated and the skin was closed with 3-0 Monocryl in a subcuticular fashion. Mepilex dressing was applied without complication. Patient was taken to recovery in stable condition. It was discussed with the patient that based on the clinical information obtained during this encounter, combined with her history, at this time I would recommend vaginal or cesareans for future deliveries if further pregnancies are desired. Amniotic Fluid Description: Thick meconium Placental Delivery Description: Spontaneous Placenta Disposition: [facility] Cord Vessel Description: 3 Vessels Complications Risks of Surgery Discussed w/Patient: Bleeding, Infection, Need for Future C-Sections and Injury to surrounding (more content not included)... Normal [facility] AST(SGOT)on 01-31-2024 AST [Catalytic activity/Vol] 12 U/L Low 15-37 [facility] Comment on above: Performed By: #### L 501.4405, L501.0900, L100.0500, L501.1105, L501.1400, L501.4100 ####[facility] [address] [place], [address] Alanine Aminotransferas (SGP T)on 01-31-2024 ALT [Catalytic activity/Vol] 12 U/L Low 13-56 [facility] Comment on above: Performed By: #### L 501.4405, L501.0900, L100.0500, L501.1105, L501.1400, L501.4100 ####[facility] [address] [place], [address] CBC W/Diff, Automatedon 01-04 Absolute Lymph 1.78 X10 3/uL Normal 0.83-4.51 [facility] Comment on above: Performed By: #### L 100.0100, BTS ####[facility] [address] [place], [address] Absolute Neut 4.9 X10 3/uL Normal 2.0-7.7 [facility] Comment on above: Performed By: #### L 100.0100, BTS ####[facility] [address] [place], [address] Basophils/100 WBC (Bld) 0.5 % Normal 0-[address] [facility] Comment on above: Performed By: #### L 100.0100, BTS ####[facility] [address] [place], [address] Eosinophils/100 WBC (Bld) 0.4 % Normal 0-5 [facility] Comment on above: Performed By: #### L 100.0100, BTS ####[facility] [address] [place], [address] Erythrocyte distribution width (RBC) [Ratio] 12.9 % Normal 11.6-14.6 [facility] Comment on above: Performed By: #### L 100.0100, BTS ####[facility] [address] [place], [address] Hematocrit (Bld) [Volume fraction] 40.7 % Normal 37-47 [facility] Comment on above: Performed By: #### L 100.0100, BTS ####[facility] [address] [place], [address] Hemoglobin (Bld) [Mass/Vol] 14.3 g/dL Normal 12.0-15.0 [facility] Comment on above: Performed By: #### L 100.0100, BTS ####[facility] [address] [place], [address] IG% 0.400 Normal 0.0-0.9 [facility] Comment on above: Result Comment: IG% - Immature Granulocytes (promyelocytes, myelocytes and metamyelocytes) > 1% indicates that a LEFT SHIFT is Present. Performed By: #### L 100.0100, BTS ####[facility] [address] [place], [address] Lymphocytes/100 WBC (Bld) 23.9 % Normal 19-41 [facility] Comment on above: Performed By: #### L 100.0100, BTS ####[facility] [address] [place], [address] MCH (RBC) [Entitic mass] 29.8 pg Normal 27.0-32.0 [facility] Comment on above: Performed By: #### L 100.0100, BTS ####[facility] [address] [place], [address] MCHC (RBC) [Mass/Vol] 35.1 g/dL Normal 32-36 [facility] Comment on above: Performed By: #### L 100.0100, BTS ####[facility] [address] [place], [address] MCV (RBC) [Entitic vol] 84.8 fL Normal 81-99 [facility] Comment on above: Performed By: #### L 100.0100, BTS ####[facility] [address] [place], [address] Monocytes/100 WBC (Bld) 9.7 % Normal 0-10 [facility] Comment on above: Performed By: #### L 100.0100, BTS ####[facility] [address] [place], [address] Neutrophils/100 WBC (Bld) 65.1 % Normal 47-70 [facility] Comment on above: Performed By: #### L 100.0100, BTS ####[facility] [address] [place], [address] Nucleated RBC (Bld) [#/Vol] 0 10*3/uL Normal 0-5 [facility] Comment on above: Performed By: #### L 100.0100, BTS ####[facility] [address] [place], [address] Platelet mean volume (Bld) [Entitic vol] 10.9 fL Normal 6.2-12.0 [facility] Comment on above: Performed By: #### L 100.0100, BTS ####[facility] [address] [place], [address] Platelets (Bld) [#/Vol] 281 10*3/uL Normal 150-450 [facility] Comment on above: Performed By: #### L 100.0100, BTS ####[facility] [address] [place], [address] RBC (Bld) [#/Vol] 4.80 10*6/uL Normal 4.2-5.4 [facility] Comment on above: Performed By: #### L 100.0100, BTS ####[facility] [address] [place], [address] RDW SD 39.2 fl Normal 35.1-43.9 [facility] Comment on above: Performed By: #### L 100.0100, BTS ####[facility] [address] [place], [address] WBC (Bld) [#/Vol] 7.5 10*3/uL Normal 4.4-11.0 [facility] Comment on above: Performed By: #### L 100.0100, BTS ####[facility] [address] [place], [address] CBC-Complete Blood Cnt No Di janis 01-31-2024 Erythrocyte distribution width (RBC) [Ratio] 12.8 % Normal 11.6-14.6 [facility] Comment on above: Performed By: #### L 501.4405, L501.0900, L100.0500, L501.1105, L501.1400, L501.4100 ####[facility] [address] [place], [address] Hematocrit (Bld) [Volume fraction] 38.9 % Normal 37-47 [facility] Comment on above: Performed By: #### L 501.4405, L501.0900, L100.0500, L501.1105, L501.1400, L501.4100 ####[facility] [address] [place], [address] Hemoglobin (Bld) [Mass/Vol] 13.8 g/dL Normal 12.0-15.0 [facility] Comment on above: Performed By: #### L 501.4405, L501.0900, L100.0500, L501.1105, L501.1400, L501.4100 ####[facility] [address] [place], [address] MCH (RBC) [Entitic mass] 30.3 pg Normal 27.0-32.0 [facility] Comment on above: Performed By: #### L 501.4405, L501.0900, L100.0500, L501.1105, L501.1400, L501.4100 ####[facility] [address] [place], [address] MCHC (RBC) [Mass/Vol] 35.5 g/dL Normal 32-36 [facility] Comment on above: Performed By: #### L 501.4405, L501.0900, L100.0500, L501.1105, L501.1400, L501.4100 ####[facility] [address] [place], [address] MCV (RBC) [Entitic vol] 85.3 fL Normal 81-[address] [facility] Comment on above: Performed By: #### L 501.4405, L501.0900, L100.0500, L501.1105, L501.1400, L501.4100 ####[facility] [address] [place], [address] Platelet mean volume (Bld) [Entitic vol] 10.8 fL Normal 6.2-12.0 [facility] Comment on above: Performed By: #### L 501.4405, L501.0900, L100.0500, L501.1105, L501.1400, L501.4100 ####[facility] [address] [place], [address] Platelets (Bld) [#/Vol] 267 10*3/uL Normal 150-450 [facility] Comment on above: Performed By: #### L 501.4405, L501.0900, L100.0500, L501.1105, L501.1400, L501.4100 ####[facility] [address] [place], [address] RBC (Bld) [#/Vol] 4.56 10*6/uL Normal 4.2-5.4 [facility] Comment on above: Performed By: #### L 501.4405, L501.0900, L100.0500, L501.1105, L501.1400, L501.4100 ####[facility] [address] [place], [address] RDW SD 39.3 fl Normal 35.1-43.9 [facility] Comment on above: Performed By: #### L 501.4405, L501.0900, L100.0500, L501.1105, L501.1400, L501.4100 ####[facility] [address] [place], [address] WBC (Bld) [#/Vol] 7.1 10*3/uL Normal 4.4-11.0 [facility] Comment on above: Performed By: #### L 501.4405, L501.0900, L100.0500, L501.1105, L501.1400, L501.4100 ####[facility] [address] [place], [address] H AND P Exam - OB/GYNon - H&P Exam - ACID MAKER [facility] Medical Records Department [address] [place] [address] H P Exam - ACID MAKER 01/31/24 1824 MR#: [id number] Acct: [id number] Name: ALEXA ROMERO PAULA Rep #: [id number] : 2000 23 From: Sandra Mooney DO PCP: Care Physician,No Primary Status:ADM IN Location: [facility] HPI - General General Date of Admission: 01/31/24 HPI Narrative ALEXA ROMERO, is a 23 y/o @ 39 weeks 2 days who presents to [facility] D for IOL due to induced hypertension. She was examined in the office and found to be 3/ 80/-2 cm and having irregular contractions. All labs for pre-eclampsia were negative Maternal Data Information CARL Calculator Estimated Delivery Date Method Current WG Current Estimate 02/05/24 LMP (Certain) 39w 2d PFSH PFSH Medical History Spotting in early Amenorrhea Vitamin D deficiency Acute cystitis PTSD (post-traumatic stress disorder) Renal colic on left side Kidney stones Patellofemoral stress syndrome of left knee Acne vulgaris Anxiety and depression Home Medications ???Medication ???Instructions ???Recorded ???Last Taken ???Type PNV 153-FA 400 mcg-om3 35 mg-dha 1 tab PO DAILY 06/23/23 Unknown History 25 mg-epa 5 mg-fish oil chew tablet buspirone 7.5 mg tablet 15 mg (2 x 7.5 mg) PO TID PRN 08/23/23 Unknown Rx anxiety #60 tabs Allergy/AdvReac Type Severity Reaction Status Date / Time acetaminophen (From Tylenol) AdvReac Vomiting Verified 01/31/24 14:53 Family History Mother Heart disease IHSS, Ddvfd-Loykbzlmb-Ztpwk Syndrome Bleeding disorder Factor V Family history of recurrent miscarriage x2 Father bipolar Surgical History History of tonsillectomy and adenoidectomy Social History adopted: No household members: significant other current occupational status: 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: No pets and animals: Yes pets and animals: dog(s) history of recent travel: No sexually active: Yes Smoking Status: Never smoker alcohol intake: never substance use type: does not use well-balanced diet: daily or most days caffeine: Yes Type: tea Number of servings: 1 eating out: 1-3 times/week during the past year weight has: remained stable what type of physical activity do you participate in: none lori/mosque: None seatbelt use: always do you feel safe at home: Yes additional social history: Boyfriend-Genaro History 1 Elective abortions Hx Para 0 Spontaneous abortions Hx # Term Pregnancies Ectopic pregnancies Hx # Pregnancies Multiple births # of living children Visit Details Expected Delivery Route/Plan Labor Preferences- CB/BF classes: encouraged labor support person: Genaro labor intervention preferences: [] pain management options preferred: epidural cut cord/dad catch: yes : yes PP control planned: discussed discussed possible routes of delivery and associated risks: [] special requests: [] Plans Covid status: [] Flu vaccine: [] Tdap vaccine: given Rhogam:na LARC form signed: yes movement and labor precautions reviewed. Problem list reviewed and updated with the most current plan of care details and appropriate orders placed. Relevant counseling for the gestational age provided. Continue routine care and follow up unless otherwise noted in visit notes/problem list details OB Flowsheet Initial Weight: Not Recorded Date -???-???-???-???-???- ???-???-???-???-???-? ??-???- EGA Weight BP Urine Prot -???-???-???-???-???- ???-???-???-???-???-? ??-???- Glucose FHR FuHt Pres Dilation -???-???-???-???-???- ???-???-???-???-???-? ??-???- Effaced St Visit Note 06/26/23 -???-???-???-???-???- ???-???-???-???-???-? ??-???- 8w 0d 219 lb 131/83 -???-???-???-???-???- ???-???-???-???-???-? ??-???- 170 -???-???-???-???-???- ???-???-???-???-???-? ??-???- JV- CRL cons istent with LMP and earlier scan. desires NIPT and carrier testing 07/25/23 -???-???-???-???-???- ???-???-???-???-???-? ??-???- 12w 1d 215 lb 144/85 119/73 Negative -???-???-???-???-???- ???-???-???-???-???-? ??-???- Negative -???-???-???-???-???- ???-???-???-???-???-? ??-???- KW- no vb/cr amping. Handheld US used today. noted movement and heart. Formal US ordered 08/17/23 -???-???-???-???-???- ???-???-???-???-???-? ??-???- 15w 3d 215 lb 2 oz 119/84 Negative -???-???-???-???-???- ???-???-???-???-???-? ??-???- Negative 148 -???-???-???-???-???- ???-???-???-???-???-? ??-???- kw- no vb/cr amping. AFP t (more content not included)... Normal [facility] L509.8000on 01-31-2024 Syphilis Abs Non-Reactive Normal [facility] Comment on above: Performed By: #### L 509.8000 ####[facility] [address] [place], [address] [facility] Office Visit Reporton 01-31-2024 [facility] Office Visit Report [facility] [address], [address] [place] [address] OFFICE VISIT Date of Service: 01/31/24 MR#: [id number] Acct: [id number] Name: ALEXA ROMERO PAULA Rep #: [id number] : 2000 Provider: Dr. 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 Is patient in pain?: No Allergies acetaminophen (From Tylenol) Adverse Reaction (Verified 01/31/24 13:58) Vomiting Medications ???Medication ???Instructions ???Recorded ???Confirmed ???Type PNV 153-FA 400 mcg-om3 35 mg-dha tab PO 06/23/23 01/31/24 History 25 mg-epa 5 mg-fish oil chew tablet buspirone 7.5 mg tablet 15 mg (2 x 7.5 mg) PO TID PRN 08/23/23 01/31/24 Rx anxiety #60 tabs Last Menstrual Period: 05/01/23 Zika: Zika virus screening: Negative : No PFSH PFSH Medical History Spotting in early Amenorrhea Vitamin D deficiency Acute cystitis PTSD (post-traumatic stress disorder) Renal colic on left side Kidney stones Patellofemoral stress syndrome of left knee Acne vulgaris Anxiety and depression Surgical History History of tonsillectomy and adenoidectomy Family History Mother Heart disease IHSS, Crfdy-Hiyikjaty-Plchb Syndrome Bleeding disorder Factor V Family history of recurrent miscarriage x2 Father bipolar Social History adopted: No household members: significant other current occupational status: 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: No pets and animals: Yes pets and animals: dog(s) history of recent travel: No sexually active: Yes Smoking Status: Never smoker alcohol intake: never substance use type: does not use well-balanced diet: daily or most days caffeine: Yes Type: tea Number of servings: 1 eating out: 1-3 times/week during the past year weight has: remained stable what type of physical activity do you participate in: none lori/mosque: None seatbelt use: always do you feel safe at home: Yes additional social history: Boyfriend-Genaro History 1 Elective abortions Hx Para 0 Spontaneous abortions Hx # Term Pregnancies Ectopic pregnancies Hx # Pregnancies Multiple births # of living children HPI 39 WK OB Details: ALEXA ROMERO is a 23 year old who presents for routine OB visit. OB Visit CARL Calculator Estimated Delivery Date Method Current WG Current Estimate 02/05/24 LMP (Certain) 39w 2d Expected Delivery Route/Plan Labor Preferences- CB/BF classes: encouraged labor support person: Genaro labor intervention preferences: [] pain management options preferred: epidural cut cord/dad catch: yes : yes PP control planned: discussed discussed possible routes of delivery and associated risks: [] special requests: [] Specific Issue/Plans Covid status: [] Flu vaccine: [] Tdap vaccine: given Rhogam:na LARC form signed: yes movement and labor precautions reviewed. Problem list reviewed and updated with the most current plan of care details and appropriate orders placed. Relevant counseling for the gestational age provided. Continue routine care and follow up unless otherwise noted in visit notes/problem list details Initial Weight: Not Recorded Date -???-???-???-???-???- ???-???-???-???-???-? ??-???- EGA Weight BP Urine Prot -???-???-???-???-???- ???-???-???-???-???-? ??-???- Glucose FHR FuHt Pres Dilation -???-???-???-???-???- ???-???-???-???-???-? ??-???- Effaced St Visit Note 06/26/23 -???-???-???-???-???- ???-???-???-???-???-? ??-???- 8w 0d 219 lb 131/83 -???-???-???-???-???- ???-???-???-???-???-? ??-???- 170 -???-???-???-???-???- ???-???-???-???-???-? ??-???- JV- CRL cons istent with LMP and earlier scan. desires NIPT and carrier testing 07/25/23 -???-???-???-???-???- ???-???-???-???-???-? ??-???- 12w 1d 215 lb 144/85 119/73 Negative -???-???-???-???-???- ???-???-???-???-???-? ??-???- Negative -???-???-???-???-???- ???-???-???-???-???-? ??-???- KW- no vb/cr amping. Handheld US used today. noted movement and heart. Formal US ordered 08/17/23 -???-???-???-???-???- ???-???-???-???-???-? ??-???- 15w 3d 215 lb 2 oz 119/84 Negative -???-???-???-???-???- ???-???-???-???-???-? ??-???- Negative 148 -???-???-???-? (more content not included)... Normal [facility] Protein+Creatinine Ratio,Uri neon 01-31-2024 PROT:CRE RATIO 246 mg/g CRE High 0-200 [facility] Comment on above: Performed By: #### L 501.0900 ####[facility] [address] [place], [id number] Protein (U) [Mass/Vol] 36.4 mg/dL High <11.9 [facility] Comment on above: Performed By: #### L 501.0900 ####[facility] [address] [place], [address] UR CREAT 148.00 mg/dL Normal NO RANGE EST. [facility] Comment on above: Performed By: #### L 501.0900 ####[facility] [address] [place], [address] PROT:CRE RATIO Normal 0-200 [facility] Comment on above: Result Comment: Canc elled via OM: Duplicate Order Performed By: #### L 501.4405, L501.0900, L100.0500, L501.1105, L501.1400, L501.4100 ####[facility] [address] [place], [address] PROTEIN,UR.RAN. Normal <11.9 [facility] Comment on above: Result Comment: Canc elled via OM: Duplicate Order Performed By: #### L 501.4405, L501.0900, L100.0500, L501.1105, L501.1400, L501.4100 ####[facility] [address] [place], [address] UR CREAT Normal NO RANGE EST. [facility] Comment on above: Result Comment: Canc elled via OM: Duplicate Order Performed By: #### L 501.4405, L501.0900, L100.0500, L501.1105, L501.1400, L501.4100 ####[facility] [address] [place], [address] Serum Creatinine AND GFRon 0 01-31-2024 Creatinine [Mass/Vol] 0.62 mg/dL Normal 0.55-1.02 [facility] Comment on above: Result Comment: The validity of the calculated GFR GFRAA in patients over 70 years has not been determined. Clinical correlation is essential. Performed By: #### L 501.4405, L501.0900, L100.0500, L501.1105, L501.1400, L501.4100 ####[facility] [address] [place], [address] ECRCL 166.77 ml/min Normal [facility] [facility] Comment on above: Performed By: #### L 501.4405, L501.0900, L100.0500, L501.1105, L501.1400, L501.4100 ####[facility] [address] [place], [address] EST GFR - AA 152 mL/min Normal >60 [facility] Comment on above: Result Comment: Afri can Ecuadorean GFR Calc Performed By: #### L 501.4405, L501.0900, L100.0500, L501.1105, L501.1400, L501.4100 ####[facility] [address] [place], [address] GFR/1.73 sq M.predicted among non-blacks MDRD (S/P/Bld) [Vol rate/Area] 125 mL/min/{1.73_m2} Normal >60 [facility] Comment on above: Result Comment: Non- GFR Calc Performed By: #### L 501.4405, L501.0900, L100.0500, L501.1105, L501.1400, L501.4100 ####[facility] [address] [place], [address] Type AND Screenon 01-31-2024 Ab SCREEN GEL Negative Normal [facility] Comment on above: Order Comment: Labor Performed By: #### L 100.0100, BTS ####[facility] [address] [place], [address] Uric Acidon 01-31-2024 URIC 5.3 mg/dL Normal 2.6-6.0 [facility] Comment on above: Result Comment: The drugs N-Acetylcysteine and Metamizole may falsely depress this assay. Performed By: #### L 501.4405, L501.0900, L100.0500, L501.1105, L501.1400, L501.4100 ####[facility] [address] [place], [address] [facility] Visit Reporton 01-26-2024 [facility] Office Visit Report [facility]'s [address], [address] [place] [address] OFFICE VISIT Date of Service: 01/26/24 MR#: [id number] Acct: [id number] Name: ALEXA ROMERO Rep #: [id number] : 2000 Provider: LUIS Means ams Age/Sex: 23/F Location: [facility] [place] Status: Signed Intake Vital Signs 10/18/23 14:04 11/29/23 13:10 01/22/24 08:25 01/26/24 14:00 Height 5 ft 3 in 5 ft 3 in 5 ft 3 in 5 ft 3 in Weight: 236 lb 4 oz BMI 41.8 BP 124/81 H Intake Visit Reasons: 38 WK OB Chief Complaint: 38 Week 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 Is patient in pain?: No Allergies acetaminophen (From Tylenol) Adverse Reaction (Verified 01/26/24 13:59) Vomiting Medications ???Medication ???Instructions ???Recorded ???Confirmed ???Type PNV 153-FA 400 mcg-om3 35 mg-dha tab PO 06/23/23 01/26/24 History 25 mg-epa 5 mg-fish oil chew tablet buspirone 7.5 mg tablet 15 mg (2 x 7.5 mg) PO TID PRN 08/23/23 01/26/24 Rx anxiety #60 tabs Last Menstrual Period: 05/01/23 Zika: Zika virus screening: Negative : No PFSH PFSH Medical History Spotting in early Amenorrhea Vitamin D deficiency Acute cystitis PTSD (post-traumatic stress disorder) Renal colic on left side Kidney stones Patellofemoral stress syndrome of left knee Acne vulgaris Anxiety and depression Surgical History History of tonsillectomy and adenoidectomy Family History Mother Heart disease IHSS, Rxqur-Xzppdgpsa-Khofn Syndrome Bleeding disorder Factor V Family history of recurrent miscarriage x2 Father bipolar Social History adopted: No household members: significant other 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 occupational status: 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: No pets and animals: Yes pets and animals: dog(s) history of recent travel: No sexually active: Yes Smoking Status: Never smoker alcohol intake: never substance use type: does not use well-balanced diet: daily or most days caffeine: Yes Type: tea Number of servings: 1 eating out: 1-3 times/week during the past year weight has: remained stable what type of physical activity do you participate in: none lori/mosque: None seatbelt use: always do you feel safe at home: Yes additional social history: Boyfriend-Genaro History 1 Elective abortions Hx Para 0 Spontaneous abortions Hx # Term Pregnancies Ectopic pregnancies Hx # Pregnancies Multiple births # of living children HPI 38 WK OB Details: ALEXA ROMERO is a 23 year old who presents for routine OB visit. OB Visit CARL Calculator Estimated Delivery Date Method Current WG Current Estimate 02/05/24 LMP (Certain) 38w 4d Expected Delivery Route/Plan Labor Preferences- CB/BF classes: encouraged labor support person: Genaro labor intervention preferences: [] pain management options preferred: epidural cut cord/dad catch: yes : yes PP control planned: discussed discussed possible routes of delivery and associated risks: [] special requests: [] Specific Issue/Plans Covid status: [] Flu vaccine: [] Tdap vaccine: given Rhogam:na LARC form signed: yes movement and labor precautions reviewed. Problem list reviewed and updated with the most current plan of care details and appropriate orders placed. Relevant counseling for the gestational age provided. Continue routine care and follow up unless otherwise noted in visit notes/problem list details Initial Weight: Not Recorded Date -???-???-???-???-???- ???-???-???-???-???-? ??-???- EGA Weight BP Urine Prot -???-???-???-???-???- ???-???-???-???-???-? ??-???- Glucose FHR FuHt Pres Dilation -???-???-???-???-???- ???-???-???-???-???-? ??-???- Effaced St Visit Note 06/26/23 -???-???-???-???-???- ???-???-???-???-???-? ??-???- 8w 0d 219 lb 131/83 -???-???-???-???-???- ???-???-???-???-???-? ??-???- 170 -???-???-???-???-???- ???-???-???-???-???-? ??-???- JV- CRL cons istent with LMP and earlier scan. desires NIPT and carrier testing 07/25/23 -???-???-???-???-???- ???-???-???-???-???-? ??-???- 12w 1d 215 lb 144/85 119/73 Negative -???-???-???-???-???- ???-???-???-???-???-? ??-???- Negative -???-???-???-???-???- ???-???-???-???-???-? ??-???- KW- no vb/cr amping. Handheld US used today. noted movement and heart. Formal US ordered 08/17/23 -???-???-???-???-???- ???-???-???-???-???-? ??-???- 15w 3d 215 lb 2 oz 119/84 Negative -???-???-???-???-???- ???-???-???-???-???-? ??-???- Negat (more content not included)... Normal [facility] Biophysical Prof W/O Non Str eson 01-22-2024 Biophysical Prof W/O Non Stres [facility] Services [address] [place], [place] [id number] Biophysical Prof W/O Non Stres MR#: [id number] Acct: [id number] Name: ALEXA ROMERO Rep #: [id number] : 2000 F 23 From: Jeanne Musa MD PCP: Care Physician,No Primary Status: [facility] Study: Biophysical Prof W/O Non Stres Date of Exam: 0 01/22/24 Exam# [id number] Ordering Dr: Sandra Mooney DO [id number] INDICATION: decreased movement. EXAMINATION: Ultrasound US Biophysical Profile W/O Nonst TECHNIQUE: Transabdominal pelvic ultrasound was performed. COMPARISON: June 26, 2023 __ FINDINGS: INTRAUTERINE GESTATION(s): Single. HEART MOTION is 143 bpm. AMNIOTIC FLUID INDEX (FOREST): 17.08 cm ESTIMATED WEIGHT: Percentile %. BIOPHYSICAL PROFILE (BPP): 01/10 -- Breathin/2. -- Movement: 2/2. -- Tone: 2/2. --FOREST: 2/2. PRESENTATION: Cephalic PLACENTA: Fundal. US/Biophysical Prof W/O Non Stres IMPRESSION: Single live intrauterine with a biophysical profile 01/10. Electronically Signed: Jeanne Musa MD at 10:36 EDT , CC: Dr. Sandra Mooney DO; No Primary Care Physician Oleo Hasher And Renderer: Signed Normal [facility] L[facility] Slaker Office Visit Reporton 01-22-2024 Lime Slaker Office Visit Report [facility]'s [address], [address] [place] [address] OFFICE VISIT Date of Service: 01/22/24 MR#: [id number] Acct: [id number] Name: ALEXA ROMERO Rep #: [id number] : 2000 Provider: Dr. 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 Is patient in pain?: No Allergies acetaminophen (From Tylenol) Adverse Reaction (Verified 01/22/24 08:24) Vomiting Medications ???Medication ???Instructions ???Recorded ???Confirmed ???Type PNV 153-FA 400 mcg-om3 35 mg-dha tab PO 06/23/23 01/22/24 History 25 mg-epa 5 mg-fish oil chew tablet buspirone 7.5 mg tablet 15 mg (2 x 7.5 mg) PO TID PRN 08/23/23 01/22/24 Rx anxiety #60 tabs Last Menstrual Period: 05/01/23 Zika: Zika virus screening: Negative : No PFSH PFSH Medical History Spotting in early Amenorrhea Vitamin D deficiency Acute cystitis PTSD (post-traumatic stress disorder) Renal colic on left side Kidney stones Patellofemoral stress syndrome of left knee Acne vulgaris Anxiety and depression Surgical History History of tonsillectomy and adenoidectomy Family History Mother Heart disease IHSS, Eljcz-Sfqyszvfq-Jfmiz Syndrome Bleeding disorder Factor V Family history of recurrent miscarriage x2 Father bipolar Social History adopted: No household members: significant other current occupational status: 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: No pets and animals: Yes pets and animals: dog(s) history of recent travel: No sexually active: Yes Smoking Status: Never smoker alcohol intake: never substance use type: does not use well-balanced diet: daily or most days caffeine: Yes Type: tea Number of servings: 1 eating out: 1-3 times/week during the past year weight has: remained stable what type of physical activity do you participate in: none lori/mosque: None seatbelt use: always do you feel safe at home: Yes additional social history: Boyfriend-Genaro History 1 Elective abortions Hx Para 0 Spontaneous abortions Hx # Term Pregnancies Ectopic pregnancies Hx # Pregnancies Multiple births # of living children HPI 38 WK OB Details: ALEXA ROMERO is a 23 year old who presents for routine OB visit. OB Visit CARL Calculator Estimated Delivery Date Method Current WG Current Estimate 02/05/24 LMP (Certain) 38w 0d Expected Delivery Route/Plan Labor Preferences- CB/BF classes: encouraged labor support person: Genaro labor intervention preferences: [] pain management options preferred: epidural cut cord/dad catch: yes : yes PP control planned: discussed discussed possible routes of delivery and associated risks: [] special requests: [] Specific Issue/Plans Covid status: [] Flu vaccine: [] Tdap vaccine: given Rhogam:na LARC form signed: yes movement and labor precautions reviewed. Problem list reviewed and updated with the most current plan of care details and appropriate orders placed. Relevant counseling for the gestational age provided. Continue routine care and follow up unless otherwise noted in visit notes/problem list details Initial Weight: Not Recorded Date -???-???-???-???-???- ???-???-???-???-???-? ??-???- EGA Weight BP Urine Prot -???-???-???-???-???- ???-???-???-???-???-? ??-???- Glucose FHR FuHt Pres Dilation -???-???-???-???-???- ???-???-???-???-???-? ??-???- Effaced St Visit Note 06/26/23 -???-???-???-???-???- ???-???-???-???-???-? ??-???- 8w 0d 219 lb 131/83 -???-???-???-???-???- ???-???-???-???-???-? ??-???- 170 -???-???-???-???-???- ???-???-???-???-???-? ??-???- JV- CRL cons istent with LMP and earlier scan. desires NIPT and carrier testing 07/25/23 -???-???-???-???-???- ???-???-???-???-???-? ??-???- 12w 1d 215 lb 144/85 119/73 Negative -???-???-???-???-???- ???-???-???-???-???-? ??-???- Negative -???-???-???-???-???- ???-???-???-???-???-? ??-???- KW- no vb/cr amping. Handheld US used today. noted movement and heart. Formal US ordered 08/17/23 -???-???-???-???-???- ???-???-???-???-???-? ??-???- 15w 3d 215 lb 2 oz 119/84 Negative -???-???-???-???-???- ???-???-???-???-???-? ??-???- Negative 148 -???-???-???-?? (more content not included)... Normal [facility] Lime Slaker Office Visit Reporton 01-17-2024 Lime Slaker Office Visit Report [facility]'s [address], [address] [place] [address] OFFICE VISIT Date of Service: 01/17/24 MR#: [id number] Acct: [id number] Name: ALEXA ROMERO Rep #: [id number] : 2000 Provider: Dr. 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 Is patient in pain?: No Allergies acetaminophen (From Tylenol) Adverse Reaction (Verified 01/17/24 13:44) Vomiting Medications ???Medication ???Instructions ???Recorded ???Confirmed ???Type PNV 153-FA 400 mcg-om3 35 mg-dha tab PO 06/23/23 01/17/24 History 25 mg-epa 5 mg-fish oil chew tablet buspirone 7.5 mg tablet 15 mg (2 x 7.5 mg) PO TID PRN 08/23/23 01/17/24 Rx anxiety #60 tabs Last Menstrual Period: 05/01/23 Zika: Zika virus screening: Negative : No PFSH PFSH Medical History Spotting in early Amenorrhea Vitamin D deficiency Acute cystitis PTSD (post-traumatic stress disorder) Renal colic on left side Kidney stones Patellofemoral stress syndrome of left knee Acne vulgaris Anxiety and depression Surgical History History of tonsillectomy and adenoidectomy Family History Mother Heart disease IHSS, Fiiks-Pwutusqho-Xmept Syndrome Bleeding disorder Factor V Family history of recurrent miscarriage x2 Father bipolar Social History adopted: No household members: significant other current occupational status: 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: No pets and animals: Yes pets and animals: dog(s) history of recent travel: No sexually active: Yes Smoking Status: Never smoker alcohol intake: never substance use type: does not use well-balanced diet: daily or most days caffeine: Yes Type: tea Number of servings: 1 eating out: 1-3 times/week during the past year weight has: remained stable what type of physical activity do you participate in: none lori/mosque: None seatbelt use: always do you feel safe at home: Yes additional social history: Boyfriend-Genaro History 1 Elective abortions Hx Para 0 Spontaneous abortions Hx # Term Pregnancies Ectopic pregnancies Hx # Pregnancies Multiple births # of living children HPI 37 WK OB Details: ALEXA ROMERO is a 23 year old who presents for routine OB visit. OB Visit CARL Calculator Estimated Delivery Date Method Current WG Current Estimate 02/05/24 LMP (Certain) 37w 2d Expected Delivery Route/Plan Labor Preferences- CB/BF classes: encouraged labor support person: Genaro labor intervention preferences: [] pain management options preferred: epidural cut cord/dad catch: yes : yes PP control planned: discussed discussed possible routes of delivery and associated risks: [] special requests: [] Specific Issue/Plans Covid status: [] Flu vaccine: [] Tdap vaccine: given Rhogam:na LARC form signed: yes movement and labor precautions reviewed. Problem list reviewed and updated with the most current plan of care details and appropriate orders placed. Relevant counseling for the gestational age provided. Continue routine care and follow up unless otherwise noted in visit notes/problem list details Initial Weight: Not Recorded Date -???-???-???-???-???- ???-???-???-???-???-? ??-???- EGA Weight BP Urine Prot -???-???-???-???-???- ???-???-???-???-???-? ??-???- Glucose FHR FuHt Pres Dilation -???-???-???-???-???- ???-???-???-???-???-? ??-???- Effaced St Visit Note 06/26/23 -???-???-???-???-???- ???-???-???-???-???-? ??-???- 8w 0d 219 lb 131/83 -???-???-???-???-???- ???-???-???-???-???-? ??-???- 170 -???-???-???-???-???- ???-???-???-???-???-? ??-???- JV- CRL cons istent with LMP and earlier scan. desires NIPT and carrier testing 07/25/23 -???-???-???-???-???- ???-???-???-???-???-? ??-???- 12w 1d 215 lb 144/85 119/73 Negative -???-???-???-???-???- ???-???-???-???-???-? ??-???- Negative -???-???-???-???-???- ???-???-???-???-???-? ??-???- KW- no vb/cr amping. Handheld US used today. noted movement and heart. Formal US ordered 08/17/23 -???-???-???-???-???- ???-???-???-???-???-? ??-???- 15w 3d 215 lb 2 oz 119/84 Negative -???-???-???-???-???- ???-???-???-???-???-? ??-???- Negative 148 -???-???-???-???-???- ???-???-???-???-???-? ??-???- kw- n (more content not included)... Normal [facility] Rule out Beta Strep (Grp. B) on 01-12-2024 KOJO Group B Beta Streptococcus is not isolated. Normal [facility] Comment on above: Performed By: #### M 100.3400 ####[facility] [id number] [place], [address] Lime Slaker Office Visit Reporton 01-10-2024 Lime Slaker Office Visit Report [facility] 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 Is patient in pain?: No Allergies acetaminophen (From Tylenol) Adverse Reaction (Verified 01/10/24 13:02) Vomiting Medications ???Medication ???Instructions ???Recorded ???Confirmed ???Type PNV 153-FA 400 mcg-om3 35 mg-dha tab PO 06/23/23 01/10/24 History 25 mg-epa 5 mg-fish oil chew tablet buspirone 7.5 mg tablet 15 mg (2 x 7.5 mg) PO TID PRN 08/23/23 01/10/24 Rx anxiety #60 tabs Last Menstrual Period: 05/01/23 Zika: Zika virus screening: Negative : No Have you fallen in the past year?: No PFSH PFSH Medical History Spotting in early Amenorrhea Vitamin D deficiency Acute cystitis PTSD (post-traumatic stress disorder) Renal colic on left side Kidney stones Patellofemoral stress syndrome of left knee Acne vulgaris Anxiety and depression Surgical History History of tonsillectomy and adenoidectomy Family History Mother Heart disease IHSS, Uqxab-Ebgewzskh-Bqdof Syndrome Bleeding disorder Factor V Family history of recurrent miscarriage x2 Father bipolar Social History adopted: No household members: significant other current occupational status: 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: No pets and animals: Yes pets and animals: dog(s) history of recent travel: No sexually active: Yes Smoking Status: Never smoker alcohol intake: never substance use type: does not use well-balanced diet: daily or most days caffeine: Yes Type: tea Number of servings: 1 eating out: 1-3 times/week during the past year weight has: remained stable what type of physical activity do you participate in: none lori/mosque: None seatbelt use: always do you feel safe at home: Yes additional social history: Boyfriend-Genaro History 1 Elective abortions Hx Para 0 Spontaneous abortions Hx # Term Pregnancies Ectopic pregnancies Hx # Pregnancies Multiple births # of living children HPI 36 WK OB Details: ALEXA ROMERO is a 23 year old who presents for routine OB visit. OB Visit CARL Calculator Estimated Delivery Date Method Current WG Current Estimate 02/05/24 LMP (Certain) 36w 2d Expected Delivery Route/Plan Labor Preferences- CB/BF classes: encouraged labor support person: Genaro labor intervention preferences: [] pain management options preferred: epidural cut cord/dad catch: yes : yes PP control planned: discussed discussed possible routes of delivery and associated risks: [] special requests: [] Specific Issue/Plans Covid status: [] Flu vaccine: [] Tdap vaccine: given Rhogam:na LARC form signed: yes movement and labor precautions reviewed. Problem list reviewed and updated with the most current plan of care details and appropriate orders placed. Relevant counseling for the gestational age provided. Continue routine care and follow up unless otherwise noted in visit notes/problem list details Initial Weight: Not Recorded Date -???-???-???-???-???- ???-???-???-???-???-? ??-???- EGA Weight BP Urine Prot -???-???-???-???-???- ???-???-???-???-???-? ??-???- Glucose FHR FuHt Pres Dilation -???-???-???-???-???- ???-???-???-???-???-? ??-???- Effaced St Visit Note 06/26/23 -???-???-???-???-???- ???-???-???-???-???-? ??-???- 8w 0d 219 lb 131/83 -???-???-???-???-???- ???-???-???-???-???-? ??-???- 170 -???-???-???-???-???- ???-???-???-???-???-? ??-???- JV- CRL cons istent with LMP and earlier scan. desires NIPT and carrier testing 07/25/23 -???-???-???-???-???- ???-???-???-???-???-? ??-???- 12w 1d 215 lb 144/85 119/73 Negative -???-???-???-???-???- ???-???-???-???-???-? ??-???- Negative -???-???-???-???-???- ???-???-???-???-???-? ??-???- KW- no vb/cr amping. Handheld US used today. noted movement and heart. Formal US ordered 08/17/23 -???-???-???-???-???- ???-???-???-???-???-? ??-???- 15w 3d 215 lb 2 oz 119/84 Negative -???-???-???-???-???- ???-???-???-???-???-? ??-???- Negativ (more content not included)... Normal [facility] - Chemistry and C hemistry - challengeon 08-23-2023 Glucose Ql (U) Negative [facility] - Urinalysison Protein Ql (U) Negative [facility] - Chemistry and C hemistry - challengeon 08-17-2023 Glucose Ql (U) Negative [facility] - Urinalysison Protein Ql (U) Negative [facility] - Chemistry and C hemistry - challengeon 07-25-2023 Glucose Ql (U) Negative [facility] - Urinalysison Protein Ql (U) Negative [facility] .Auto Diffon 07-13-2023 Basophil, Absolute 0.0 10 3/mcL Normal 0.0-0.3 [facility] ([place]) Comment on above: Performed By: #### M DW, ANEU, GFR, CBC, BMP, ADIFF #### [address] [address] Basophils/100 WBC (Bld) 0.5 % Normal 0.0-2.5 [facility] ([place]) Comment on above: Performed By: #### M DW, ANEU, GFR, CBC, BMP, ADIFF #### [address] [address] Eosinophil, Absolute 0.0 10 3/mcL Normal 0.0-0.7 [facility] ([place]) Comment on above: Performed By: #### M DW, ANEU, GFR, CBC, BMP, ADIFF #### [address] [address] Eosinophils/100 WBC (Bld) 0.7 % Normal 0.0-6.0 [facility] ([place]) Comment on above: Performed By: #### M DW, ANEU, GFR, CBC, BMP, ADIFF #### [address] [address] Lymphocyte, Absolute 1.7 10 3/mcL Normal 0.9-4.3 [facility] ([place]) Comment on above: Performed By: #### M DW, ANEU, GFR, CBC, BMP, ADIFF #### [address] [address] Lymphocytes/100 WBC (Bld) 23.9 % Normal 20.0-40.0 [facility] ([place]) Comment on above: Performed By: #### M DW, ANEU, GFR, CBC, BMP, ADIFF #### [address] [address] Monocyte, Absolute 0.4 10 3/mcL Normal 0.1-1.4 [facility] ([place]) Comment on above: Performed By: #### M DW, ANEU, GFR, CBC, BMP, ADIFF #### [address] [address] Monocytes/100 WBC (Bld) 6.0 % Normal 2.0-13.0 [facility] ([place]) Comment on above: Performed By: #### M DW, ANEU, GFR, CBC, BMP, ADIFF #### [address] [address] Neutrophils/100 WBC (Bld) 68.9 % Normal 50.0-75.0 [facility] ([place]) Comment on above: Performed By: #### M DW, ANEU, GFR, CBC, BMP, ADIFF #### [address] [address] .GFRon 07-13-2023 GFR >60 Normal [facility] ([place]) Comment on above: Result Comment: GFR Population mean for , Non- Americans Ages 20-29 = 116 mL/min/1.73 sq.m. Ages 30-39 = 107 mL/min/1.73 sq.m. Ages 40-49 = 99 mL/min/1.73 sq.m. Ages 50-59 = 93 mL/min/1.73 sq.m. Ages 60-69 = 85 mL/min/1.73 sq.m. Ages 70+ = 75 mL/min/1.73 sq.m. Chronic Kidney Disease: Less than 60 mL/min/1.73 square meters End Stage Renal Disease: Less than 15 mL/min/1.73 square meters Performed By: #### M DW, ANEU, GFR, CBC, BMP, ADIFF #### [address] [address] GFR Non- >60 Normal [facility] ([place]) Comment on above: Result Comment: GFR Population mean for , Non- Americans Ages 20-29 = 116 mL/min/1.73 sq.m. Ages 30-39 = 107 mL/min/1.73 sq.m. Ages 40-49 = 99 mL/min/1.73 sq.m. Ages 50-59 = 93 mL/min/1.73 sq.m. Ages 60-69 = 85 mL/min/1.73 sq.m. Ages 70+ = 75 mL/min/1.73 sq.m. Chronic Kidney Disease: Less than 60 mL/min/1.73 square meters End Stage Renal Disease: Less than 15 mL/min/1.73 square meters Performed By: #### M DW, ANEU, GFR, CBC, BMP, ADIFF #### [address] [address] .MDWon 07-13-2023 Monocyte Distribution Width 17.45 Normal 0.00-20.00 [facility] ([place]) Comment on above: Result Comment: For ED adult patients suspected of sepsis, MDW<=20.0 does not rule out sepsis or risk of sepsis Performed By: #### M DW, ANEU, GFR, CBC, BMP, ADIFF #### [address] [address] .NEUABSon 07-13-2023 Neutrophil, Absolute 4.9 10 3/mcL Normal 2.3-8.1 [facility] ([place]) Comment on above: Performed By: #### M DW, ANEU, GFR, CBC, BMP, ADIFF #### [address] [address] BMPon 07-13-2023 Calcium [Mass/Vol] 9.7 mg/dL Normal 8.7-10.4 [facility] ([place]) Comment on above: Performed By: #### M DW, ANEU, GFR, CBC, BMP, ADIFF #### [address] [address] Chloride [Moles/Vol] 107 mmol/L Normal 98-110 [facility] ([place]) Comment on above: Performed By: #### M DW, ANEU, GFR, CBC, BMP, ADIFF #### [address] [address] CO2 [Moles/Vol] 23 mmol/L Normal 22-32 [facility] ([place]) Comment on above: Performed By: #### M DW, ANEU, GFR, CBC, BMP, ADIFF #### [address] [address] Creatinine [Mass/Vol] 0.52 mg/dL Normal 0.50-1.20 [facility] ([place]) Comment on above: Performed By: #### M DW, ANEU, GFR, CBC, BMP, ADIFF #### [place] [id number] Electrolyte Balance 5.0 mEq/L Normal 4.0-15.0 [facility], 1928–[facility] ([place]) Comment on above: Performed By: #### M DW, ANEU, GFR, CBC, BMP, ADIFF #### [place] [id number] Glucose [Mass/Vol] 85 mg/dL Normal 70-110 [facility] ([place]) Comment on above: Performed By: #### M DW, ANEU, GFR, CBC, BMP, ADIFF #### [place] [id number] Potassium [Moles/Vol] 3.8 mmol/L Normal 3.5-5.0 [facility] ([place] Comment on above: Performed By: #### M DW, ANEU, GFR, CBC, BMP, ADIFF #### [place] [address] Sodium [Moles/Vol] 135 mmol/L Low 136-145 [facility] ([place]) Comment on above: Performed By: #### M DW, ANEU, GFR, CBC, BMP, ADIFF #### [place] [address] Urea nitrogen [Mass/Vol] mg/dL Low 8.0-22.0 [facility] ([place] Comment on above: Performed By: #### M DW, ANEU, GFR, CBC, BMP, ADIFF #### [place] [id number] BUN/Creatinine Ratio see comment Normal 10.0-22.0 [facility] ([place] Comment on above: Result Comment: Unab le to calculate this test result accurately. Results used to calculate this test are outside the reportable range. Performed By: #### M DW, ANEU, GFR, CBC, BMP, ADIFF #### [address] [address] CBCon 07-13-2023 Erythrocyte distribution width (RBC) [Ratio] 13.3 % Normal 11.5-15.5 [facility] ([place] Comment on above: Performed By: #### M DW, ANEU, GFR, CBC, BMP, ADIFF #### [place] [address] Hematocrit (Bld) [Volume fraction] 40.1 % Normal 34.0-46.0 [facility] ([place] Comment on above: Performed By: #### M DW, ANEU, GFR, CBC, BMP, ADIFF #### [place] [address] Hgb 14.0 G/dL Normal 12.0-16.0 [facility] ([place] Comment on above: Performed By: #### M DW, ANEU, GFR, CBC, BMP, ADIFF #### [place] [address] MCH (RBC) [Entitic mass] 30.3 pg Normal 27.0-33.0 [facility] ([place] Comment on above: Performed By: #### M DW, ANEU, GFR, CBC, BMP, ADIFF #### [place] [address] MCHC 34.9 G/dL Normal 32.0-36.0 [facility] ([place] Comment on above: Performed By: #### M DW, ANEU, GFR, CBC, BMP, ADIFF #### [place] [id number] MCV (RBC) [Entitic vol] 86.7 fL Normal 80.0-99.0 [facility] ([place]) Comment on above: Performed By: #### M DW, ANEU, GFR, CBC, BMP, ADIFF #### [place] [id number] Platelet 304 10 3/mcL Normal 150-450 [facility] ([place]) Comment on above: Performed By: #### M DW, ANEU, GFR, CBC, BMP, ADIFF #### [place] [address] Platelet mean volume (Bld) [Entitic vol] 7.4 fL Normal 6.6-10.5 [facility] ([place] Comment on above: Performed By: #### M DW, ANEU, GFR, CBC, BMP, ADIFF #### [address] [address] RBC 4.62 10 6/mcL Normal 4.10-5.30 [facility] ([place] Comment on above: Performed By: #### M DW, ANEU, GFR, CBC, BMP, ADIFF #### [place] [id number] WBC 7.2 10 3/mcL Normal 4.5-10.8 [facility] ([place]) Comment on above: Performed By: #### M DW, ANEU, GFR, CBC, BMP, ADIFF #### [place] [address] HCGon 07-13-2023 Date of LMP unknown Normal [facility] ([place]) Comment on above: Performed By: #### H CG #### [place] [address] hCG, quantitative 43241.9 mIU/mL Normal [facility] ([place] Comment on above: Result Comment: Ochoa titative hCG reference ranges: Non adults. . . . . . . . . . .0 - 5 mIU/mL (All values referenced to 1st IRP / 3rd IS 75/537 standards.) females based on gestational age: 1 week. . . . . . . . . . . . . . . .5 - 50 mIU/mL 2 weeks . . . . . . . . . . . . . . .50 - 500 mIU/mL 3 weeks . . . . . . . . . . . . . . .100 - 10,000 mIU/ml 4 weeks . . . . . . . . . . . . . . .1,000 - 30,000 mIU/mL 6-8 weeks . . . . . . . . . . . . . . .12,000 - 270,000 mIU/mL 12 weeks . . . . . . . . . . . . . . .15,000 - 220,000 mIU/mL 2nd trimester . . . . . . . . . . . .2,500 - 82,000 mIU/mL 3rd trimester . . . . . . . . . . . .2,400 - 50,000 mIU/mL Performed By: #### H #### [place] [address] LABORATORYOrdered By: SYSTEM SYSTEM on 07-13-2023 Basophils (Bld) [#/Vol] 0.0 103/mcL Normal 0.0 - 0.3 10^3/mcL AH Workflow SS Basophils/100 WBC (Bld) 0.5 % Normal 0.0 - 2.5 % AH Workflow SS Calcium [Mass/Vol] 9.7 mg/dL Normal 8.7 - 10. 4 mg/dL ADM SS Chloride [Moles/Vol] 107 mmol/L Normal 98 - 11 0 mEq/L ADM SS CO2 [Moles/Vol] 23 mmol/L Normal 22 - 32 mEq/L AH ADM SS Creatinine [Mass/Vol] 0.52 mg/dL Normal 0.50 - 1.20 mg/dL ADM SS Electrolyte Balance 5.0 mEq/L Normal 4.0 - 15 .0 mEq/L ADM SS Eosinophils (Bld) [#/Vol] 0.0 103/mcL Normal 0.0 - 0.7 10^3/mcL AH Workflow SS Eosinophils/100 WBC (Bld) 0.7 % Normal 0.0 - 6.0 % AH Workflow SS Erythrocyte distribution width (RBC) [Ratio] 13.3 % Normal 11.5 - 15.5 % AH Workflow SS GFR/1.73 sq M.predicted among blacks MDRD (S/P/Bld) [Vol rate/Area] ml/min/1.73sqm Invalid Interpretation Code ADM SS Comment on above: Interpretive Data: GFR Population mean for , Non- Americans Ages 20-29 = 116 mL/min/1.73 sq.m. Ages 30-39 = 107 mL/min/1.73 sq.m. Ages 40-49 = 99 mL/min/1.73 sq.m. Ages 50-59 = 93 mL/min/1.73 sq.m. Ages 60-69 = 85 mL/min/1.73 sq.m. Ages 70+ = 75 mL/min/1.73 sq.m. Chronic Kidney Disease: Less than 60 mL/min/1.73 square meters End Stage Renal Disease: Less than 15 mL/min/1.73 square meters GFR/1.73 sq M.predicted among non-blacks MDRD (S/P/Bld) [Vol rate/Area] ml/min/1.73sqm Invalid Interpretation Code ADM SS Comment on above: Interpretive Data: GFR Population mean for , Non- Americans Ages 20-29 = 116 mL/min/1.73 sq.m. Ages 30-39 = 107 mL/min/1.73 sq.m. Ages 40-49 = 99 mL/min/1.73 sq.m. Ages 50-59 = 93 mL/min/1.73 sq.m. Ages 60-69 = 85 mL/min/1.73 sq.m. Ages 70+ = 75 mL/min/1.73 sq.m. Chronic Kidney Disease: Less than 60 mL/min/1.73 square meters End Stage Renal Disease: Less than 15 mL/min/1.73 square meters Glucose [Mass/Vol] 85 mg/dL Normal 70 - 110 mg/dL ADM SS Hematocrit (Bld) [Volume fraction] 40.1 % Normal 34.0 - 46.0 % AH Workflow SS Hemoglobin (Bld) [Mass/Vol] 14.0 G/dL Normal 12.0 - 16.0 G/dL AH Workflow SS Lymphocytes (Bld) [#/Vol] 1.7 103/mcL Normal 0.9 - 4.3 10^3/mcL AH Workflow SS Lymphocytes/100 WBC (Bld) 23.9 % Normal 20.0 - 40.0 % AH Workflow SS MCH (RBC) [Entitic mass] 30.3 pg Normal 27.0 - 33.0 pg AH Workflow SS MCHC 34.9 G/dL Normal 32.0 - 36.0 G/dL AH Workflow SS MCV (RBC) [Entitic vol] 86.7 fL Normal 80.0 - 99.0 fL Workflow SS Monocyte distribution width Auto (Bld) [Entitic vol] 17.45 1 Normal 0.00 - 20.00 Workflow SS Comment on above: Result Comment: For ED adult patients suspected of sepsis, MDW<=20.0 does not rule out sepsis or risk of sepsis Monocytes (Bld) [#/Vol] 0.4 103/mcL Normal 0.1 - 1.4 10^3/mcL AH Workflow SS Monocytes/100 WBC (Bld) 6.0 % Normal 2.0 - 13.0 % AH Workflow SS Neutrophils (Bld) [#/Vol] 4.9 103/mcL Normal 2.3 - 8.1 10^3/mcL AH Workflow SS Neutrophils/100 WBC (Bld) 68.9 % Normal 50.0 - 75.0 % AH Workflow SS Platelet mean volume (Bld) [Entitic vol] 7.4 fL Normal 6.6 - 10.5 fL AH Workflow SS Platelets (Bld) [#/Vol] 304 103/mcL Normal 150 - 450 10^3/mcL AH Workflow SS Potassium [Moles/Vol] 3.8 mmol/L Normal 3.5 - 5.0 mEq/L ADM SS RBC (Bld) [#/Vol] 4.62 106/mcL Normal 4.10 - 5.3 0 10^6/mcL AH Workflow SS Sodium [Moles/Vol] 135 mmol/L Low 136 - 145 mEq/L ADM SS Urea nitrogen [Mass/Vol] mg/dL Low 8.0 - 22.0 mg/dL ADM SS WBC (Bld) [#/Vol] 7.2 103/mcL Normal 4.5 - 10.8 10^3/mc[place] [address].9 m[IU]/mL Invalid Interpretation Code ADM SS Comment on above: Interpretive Data: Q uantitative hCG reference ranges: Non adults. . . . . . . . . . .0 - 5 mIU/mL (All values referenced to 1st IRP / 3rd IS 75/537 standards.) females based on gestational age: 1 week. . . . . . . . . . . . . . . .5 - 50 mIU/mL 2 weeks . . . . . . . . . . . . . . .50 - 500 mIU/mL 3 weeks . . . . . . . . . . . . . . .100 - 10,000 mIU/ml 4 weeks . . . . . . . . . . . . . . .1,000 - 30,000 mIU/mL 6-8 weeks . . . . . . . . . . . . . . .12,000 - 270,000 mIU/mL 12 weeks . . . . . . . . . . . . . . .15,000 - 220,000 mIU/mL 2nd trimester . . . . . . . . . . . .2,500 - 82,000 mIU/mL 3rd trimester . . . . . . . . . . . .2,400 - 50,000 mIU/mL LABORATORYOrdered By: Lynnette Fernando on 07-13-2023 Urea nitrogen/Creatinine [Mass ratio] see comment Invalid Interpretation Code 10.0 - 22.0 AH ADM SS Comment on above: Result Comment: Unab le to calculate this test result accurately. Results used to calculate this test are outside the reportable range. LABORATORYOrdered By: Jyotsna Frazier on 07-13-2023 Appearance (U) Slightly Cloudy (Abnormal) (07/13/23 1:10 PM) [facility] Work Phone: Beta HCG ( test) Ql (U) Positive (07/13/23 1:10 PM) [facility] Work Phone: Bilirubin Urine Dipstick Negative (07/13/23 1:10 PM) [facility] Work Phone: Blood Urine Dipstick Negative (07/13/23 1:10 PM) [facility] Work Phone: Glucose Urine Dipstick Negative (07/13/23 1:10 PM) [facility] Work Phone: Ketones Urine Dipstick 4+ (160 mg/dl) (Abnormal) (07/13/23 1:10 PM) [facility] Work Phone: Leukocytes Urine Dipstick Trace (Abnormal) (07/13/23 1:10 PM) [facility] Work Phone: Nitrite Urine Dipstick Negative (07/13/23 1:10 PM) [facility] Work Phone: pH Urine Dipstick 7 (07/13/23 1:10 PM) [facility] Work Phone: Protein Urine Dipstick Negative (07/13/23 1:10 PM) [facility] Work Phone: Specific [place] Urine Dipstick 1.005 (07/13/23 1:10 PM) [facility] Work Phone: Urine Color Urine Dipstick Dark Yellow (07/13/23 1:10 PM) [facility] Work Phone: Urobilinogen Urine Dipstick 0.2 mg/dl (07/13/23 1:10 PM) [facility] Work Phone: LABORATORYOrdered By: Julissa Delcid on 07-13-2023 Date of LMP unknown Invalid Interpretation Code AH Chemistry S Absolute lymphocyte countOrd ered By: Sandra Vidal on 07-11-2023 Lymphocytes Auto (Unsp spec) [#/Vol] 1.88 10*3/uL 0.83-4.51 [facility] Automated lymphocyte count a s percentage of total leukocytesOrdered By: Sandra Vidal on 07-11-2023 Lymphocytes/100 WBC Auto (Unsp spec) 29.9 % 19-41 [facility] Basophil percentageOrdered B y: Sandra Vidal on 07-11-2023 Basophils/100 WBC (Bld) 0.5 % 0-[address] [facility] Eosinophils/100 WBC (Bld) 0.8 % 0-5 [facility] Hemoglobin (Bld) [Mass/Vol] 14.3 g/dL 12.0-15.0 [facility] Monocytes/100 WBC (Bld) 7.5 % 0-10 [facility] Neutrophils (Bld) [#/Vol] 3.8 10*3/uL 2.0-7.7 [facility] Neutrophils/100 WBC (Bld) 61.0 % 47-70 [facility] WBC (Bld) [#/Vol] 6.3 10*3/uL 4.4-11.0 [facility] Determination of erythrocyte mean corpuscular volume (MCV)Ordered By: Sandra Vidal on 07-11-2023 MCV (RBC) [Entitic vol] 85.0 fL 81-[address] [facility] Erythrocyte distribution wid th ratioOrdered By: Sandra Vidal on 07-11-2023 Erythrocyte distribution width (RBC) [Ratio] 12.1 % 11.6-14.6 [facility] Erythrocyte distribution wid th standard deviationOrdered By: Sandra Vidal on 07-11-2023 Erythrocyte distribution width (RBC) [Entitic vol] 37.6 fL 35.1-43.9 [facility] HIV 1 and HIV-2 antibody ass ay with HIV-1 p24 antigen detectionOrdered By: Sandra Vidal on 07-11-2023 HIV 1+2 Ab+HIV1 p24 Ag IA Ql Non-Reactive Nonreactive [facility] Hematocrit Auto (Bld) [Volum e fraction]Ordered By: Sandra Vidal on 07-11-2023 Hematocrit (Bld) [Volume fraction] 40.7 % 37-47 [facility] Immature granulocytes/100 WB C Auto (Bld)Ordered By: Sandra Vidal on 07-11-2023 Immature granulocytes/100 WBC (Bld) 0.300 % 0.0-0.9 [facility] Comment on above: IG% - Immature Granu locytes (promyelocytes, myelocytes and metamyelocytes) > 1% indicates that a LEFT SHIFT is Present. Laboratory - Hematology and Cell countsOrdered By: Sandra Vidal on 07-11-2023 MCH (RBC) [Entitic mass] 29.9 pg 27.0-32.0 [facility] MCHC (RBC) [Mass/Vol] 35.1 g/dL 32-36 [facility] Nucleated RBC/100 WBC (Bld) [Ratio] 0 % 0-5 [facility] Platelet mean volume (Bld) [Entitic vol] 9.5 fL 6.2-12.0 [facility] Platelets (Bld) [#/Vol] 345 10*3/uL 150-450 [facility] No Panel InformationOrdered By: Sandra Vidal on 07-11-2023 Hepatitis B Surface Antigen Non-Reactive Nonreactive [facility] Hepatitis C Antibody Non-Reactive Nonreactive [facility] Comment on above: Non Reactive: < 0.8 Equivocal: >/= 0.8 to < 1.0 Reactive: >/= 1.0The CDC recommends that a reactive/equivocal HCV antibody result be followed up by the HCV Nucleic Acid Amplificationtest (385139) Miscellaneous Test Comment SEE SCANNED REPORT [facility] Rubella IgG Antibody Reactive Nonreactive [facility] Comment on above: Antibody Results Int erpretation of Immune Status Non Reactive Presumed Non-Immune Equivocal Equivocal Reactive Presumed Immune RBC Auto (Bld) [#/Vol]Ordere d By: Sandra Vidal on 07-11-2023 RBC (Bld) [#/Vol] 4.79 10*6/uL 4.2-5.4 [facility] Serum Treponema species anti body detectionOrdered By: Sandra Vidal on 07-11-2023 Treponema sp Ab Ql (S) Non-Reactive [facility] Whole blood hemoglobin A1c/t otal hemoglobin ratio (mass fraction)Ordered By: Sandra Vidal on 07-11-2023 HbA1c (Bld) [Mass fraction] 4.6 % 3.8-5.6 [facility] Comment on above: Normal < 5.7 % Predi abetic 5.7 - 6.4 % Diabetic >or= 6.5 % Please note range changes. Chlamydia trachomatis rRNA d etection by probe and target amplification methodOrdered By: Sandra Vidal on 06-26-2023 C. trachomatis rRNA PADMINI+probe Ql (Unsp spec) Negative Negative [facility] Culture, urineOrdered By: Lang Vidal on 06-26-2023 Bacteria identified Cx Nom (U) Positive [facility] Bacteria identified Cx Nom (U) Positive [facility] Laboratory - Microbiology an d Antimicrobial susceptibilityOrdered By: Sandra Vidal on 06-26-2023 N. gonorrhoeae DNA PADMINI+probe Ql (Unsp spec) Negative Negative [facility] Comment on above: Performed at: =[address] [id number] Director: Darline Dumont MD, Phone: [phone] Serum or plasma choriogonado tropin detectionOrdered By: Kristen Maldonado on 06-08-2023 HCG ( test) Ql 1714 mIU/mL <4 [facility] Comment on above: hCG levels with Gest ational AgeGestational Age hCG mIU/mL (IU/L)0.2 - 1 week 5 - 501-2 weeks 50 - 5002-3 weeks 100 - 52644-9 weeks 500 - 511408-7 weeks 1000 - 091194-3 weeks 95530 - 100,0006-8 weeks 30806 - 200,0002-3 months 92103 - 100,000 Serum or plasma choriogonado tropin detectionOrdered By: Kirsten Maldonado on 06-06-2023 HCG ( test) Ql 802 mIU/mL <[address] [facility] Comment on above: hCG levels with Gest ational AgeGestational Age hCG mIU/mL (IU/L)0.2 - 1 week 5 - 501-2 weeks 50 - 5002-3 weeks 100 - 61736-7 weeks 500 - 917979-8 weeks 1000 - 772349-4 weeks 14741 - 100,0006-8 weeks 62728 - 200,0002-3 months 51781 - 100,000 ANKLE COMP MIN 3 VWS RTon ANKLE COMP MIN 3 VWS RT FOOT COMP MIN 3 VWS RT, ANKLE COMP MIN 3 VWS RT Ordering Physician: Elvi Hernandez RIGHT FOOT 3 VIEWS Clinical Statement: Pain, status post injury. FINDINGS: No acute fracture or dislocation identified. The osseous structures are intact. IMPRESSION: No acute osseous abnormality. RIGHT ANKLE 3 VIEWS: FINDINGS: No fracture or dislocation identified. The osseous structures are intact. IMPRESSION: No osseous abnormality. This report was electronically signed by Sandee Armstrong MD 09/15/2021 4:11 PM Reported By: SANDEE ARMSTRONG M.D. Signed By: SANDEE ARMSTRONG M.D. [facility] 09-15-2021 EMERGENCY PHYSICIAN REPORT This is a preliminary report only, as the practitioner review and authentication has not occurred. [facility] ER PHYSICIAN ASSESSMENT RECORDS : FlexChartData Event Time: 09/15/2021 15:35 ELP Status: Signed [facility] Alexa Nick [[id number]] Mid-Level Chart (V2b) / 2000 Chart created at 09/15/2021 15:31 by Elvi Hernandez Chart closed at 09/15/2021 16:22 Entry in Emergency Department at 09/15/2021 12:27, departure at 09/15/2021 17:10 Patient Name: Alexa Romero Record Number: [id number] Date: 09/15/2021 15:31 Entered Department at: 09/15/2021 12:27 Patient Seen at: 09/15/2021 15:12 Historian: Patient PCP: *Unknown,PCP Chief Complaint:TRIPPED AND FELL AT WORK, TWISTED RIGHT ANKLE. 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 DENIES ANY OTHER INJURIES Nursing triage/initial assessment reviewed and confirmed and Initial Vital Signs reviewed. Temperature: 97.8 F (36.6 C). Pulse: 86. Respiratory Rate: 18. Blood-pressure: 141/91. Oxygen Saturation: 100%. History of Present Illness: Patient is a 20-year-old female who presented to complaint of right ankle pain. 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 Did not hit her head. No knee pain. Complaining of right outer ankle pain. No paresthesia. No other complaints. [facility] PATIENT NAME: ALEXA ROMERO [address] MEDICAL REC #: [id number] [place] [address] EMERGENCY DEPARTMENT REPORT EMERGENCY DEPARTMENT PHYSICIAN HPI Elements: Associated symptoms: See HPI. Review of Systems. All other systems reviewed and negative.. Past History, Medications, Allergies, Social History and Family History reviewed in nurses note. Medications: Reviewed RN Note. None Allergies: Reviewed RN Note TYLENOL(Anaphylactic Reaction) Social History: Reviewed RN Note. Family History: Reviewed RN Note Physical Examination: General: Alert and Well Developed; Patient is in counseling exam table. No acute distress. Of his questions in full sentences. Nontoxic-appearing. HEENT: Normal ENT inspection. Eyes: Lids Normal; . Respiratory: No Resp Distress and Normal Breath Sounds Cardio-Vascular: No murmur, No rub and RRR Extremity: Normal Equal pulses; Equal strength with hip flexion extension knee flexion extension, strength 5 of 5. Right ankle plantar dorsiflexion 3 out of 5 due to pain. Toe flexion extension 4 out of 5 due to pain. Tender palpation along the right lateral malleolus small contusion present along the base of the lateral malleolus. Nontender palpation along Achilles, fifth metatarsal, navicular or medial malleolus. No palpable tenderness or bogginess around Achilles tendon. Dorsalis pedis pulses +2. Neurological: Alert, Oriented X3 and No Gross Weakness; Equal sensation in all dermatomes of lower extremity. Skin: No rash, No Petechiae, Warm and Dry Psychological: Mood/Affect Normal and Normal Memory/Judgment Imaging Study Obtained: ANKLE (COMPLETE) RT Imaging Study Obtained: [facility] PATIENT NAME: ALEXA ROMERO [facility] [address] MEDICAL REC #: [id number] [place] [address] EMERGENCY DEPARTMENT REPORT EMERGENCY DEPARTMENT PHYSICIAN FOOT (COMPLETE) RT Radiology: Interpreted by Radiologist. Medical Decision Making Vital signs reviewed. Patient is a 20-year-old female who presented to complaint right ankle pain after tripping over someone from work. This is Workers Comp. Denies any pain. Complaining of lateral right ankle pain. On exam patient appears neurovascular intact. Mildly tender palpation along lateral malleolus of right ankle some edema present she has contusion. X-rays are negative for acute findings. Was given Motrin. I did instruct patient on supportive measures of acute right ankle sprain. She is given crutches Gelfoam splint. Will be given work health and safety follow-up. I did inform patient and mother when to return emergency room. They did verbalize agreement and understanding with plan. Will be discharged home. Clinical Impression: 1. Acute right ankle sprain Disposition: Discharged *Home. Condition: Good Direct patient care supervision and electronic documentation review by Nohelia Kearney on 09/20/2021 15:09. : FlexChartData Event Time: 09/15/2021 16:55 Status: Signed [facility] Alexa Romero [[id number]] Attending Physician 2000 Chart (V2b) Chart created at 09/15/2021 16:23 by Nohelia Kearney [facility] PATIENT NAME: ALEXA ROMERO [address] MEDICAL REC #: [id number] [place], [place] [address] (more content not included)... Normal [facility] FOOT COMP MIN 3 VWS RTon FOOT COMP MIN 3 VWS RT FOOT COMP MIN 3 V WS RT, ANKLE COMP MIN 3 VWS RT Ordering Physician: Elvi Hernandez RIGHT FOOT 3 VIEWS Clinical Statement: Pain, status post injury. FINDINGS: No acute fracture or dislocation identified. The osseous structures are intact. IMPRESSION: No acute osseous abnormality. RIGHT ANKLE 3 VIEWS: FINDINGS: No fracture or dislocation identified. The osseous structures are intact. IMPRESSION: No osseous abnormality. This report was electronically signed by Sandee Armstrong MD 09/15/2021 4:11 PM Reported By: SANDEE ARMSTRONG M.D. Signed By: SANDEE ARMSTRONG M.D. Normal [facility] CT abdomen pelvis wo conon 0 10-25-2020 CT abdomen pelvis wo [facility] Main [place] [id number] CT Scan Report Signed Patient: Alexa Romero MR#: [id number] 12 : 2000 Acct:[id number] Age/Sex: 19 / F ADM Date: 10/24/20 Loc: ER Room: Type: [facility] ER Attending Dr: Ordering Provider: Jez Nikki DO Mirella Date of Service: 10/24/20 CT/CT abdomen pelvis wo con: flank pain Copies to: Jez VuDO CT abdomen pelvis wo con 10/24/2020 8:41 PM SIGNS AND SYMPTOMS: Bilateral flank pain, hematuria, history of renal stones TECHNIQUE: Multidetector ct axial images of the abdomen and pelvis were obtained without IV contrast. Multiplanar reformats were performed and reviewed to further define anatomy and possible pathology. CT was performed with one or more of the following dose reduction techniques: Automated exposure control, adjustment of the mA and/or kV according to patient size, or use of iterative reconstruction technique. COMPARISON: None. FINDINGS: Lower Chest: Within normal limits. ABDOMEN: Liver: Within normal limits. Bile Ducts: Normal caliber. Gallbladder: No calcified gallstones. Normal caliber wall. Pancreas: Within normal limits. Spleen: Within normal limits. Adrenals: Within normal limits. Kidneys: There is mild left-sided hydronephrosis. Pelvis: Reproductive Organs: There is an intrauterine device within the endometrial canal. There is no evidence of adnexal mass. Ureters: There is a 3 mm stone at the left ureterovesical junction. Bladder: Within normal limits. Bowel: Normal caliber. There is a normal appendix in the right lower quadrant. Mesenteric Lymph Nodes: No enlarged mesenteric lymph nodes. Peritoneum: No ascites or free air, no fluid collection. Vessels: within normal limits Retroperitoneum: Within normal limits. Abdominal Wall: Within normal limits. Bones: Within normal limits. CT/CT abdomen pelvis wo con IMPRESSION: There is a 3 mm left ureterovesical junction stone contributing to mild left-sided hydronephrosis. There is no bowel obstruction. An intrauterine device is present within the endometrial canal. Impression dictated by: Yunier Colby M.D.10/25/2020 8:20 AM Dictation Location: [place] [address] Transcribed By: [facility] 10/25/20 0820 Dictated By: Yunier Colby II, MD 10/25/20 0815 Signed By: 10/25/20 0820 Normal [facility] Amylaseon 10-24-2020 Amylase [Catalytic activity/Vol] 53 U/L Normal 28-100 [facility] Comment on above: Performed By: #### B MP, LAUREN, HEPATIC, CBC, LIPASE #### [facility] [address] Basic Metabolic Panelon 10-04 Calcium [Mass/Vol] 9.4 mg/dL Normal 8.2-10.2 [facility] Comment on above: Performed By: #### B MP, LAUREN, HEPATIC, CBC, LIPASE #### [address] Chloride [Moles/Vol] 106 mmol/L Normal 95-114 [facility] [place] Comment on above: Performed By: #### B MP, LAUREN, HEPATIC, CBC, LIPASE #### [address] CO2 [Moles/Vol] 20.4 mmol/L Low 22.0-30.0 [facility] Comment on above: Performed By: #### B MP, LAUREN, HEPATIC, CBC, LIPASE #### [address] Creatinine [Mass/Vol] 0.75 mg/dL Normal 0.44-1.03 [facility] Comment on above: Performed By: #### B MP, LAUREN, HEPATIC, CBC, LIPASE #### [address] Creatinine Clr Calc Pharmacy 134.70 [facility] Comment on above: Performed By: #### B MP, LAUREN, HEPATIC, CBC, LIPASE #### [address] Estimated GFR ( Davon > 60 [facility] Comment on above: Result Comment: GFR estimated reference range: According to KDOQI guidelines, <60 ml/min/1.73m2 is sufficient to diagnose a patient with chronic kidney disease. Performed By: #### B MP, LAUREN, HEPATIC, CBC, LIPASE #### [address] [place] [address] [place] Estimated GFR (Non- Am > 60 Normal [facility] Comment on above: Performed By: #### B MP, LAUREN, HEPATIC, CBC, LIPASE #### [address] Glucose [Mass/Vol] 104 mg/dL High 70-100 [facility] Comment on above: Result Comment: [facility] Glucose Reference Range is dependent on time and content of last meal. Glucose of more than 200 mg/dL in a nonstressed, ambulatory subject supports the diagnosis of Diabetes Mellitus. ADA recommended reference range Performed By: #### B MP, LAUREN, HEPATIC, CBC, LIPASE #### [address] Potassium [Moles/Vol] 4.2 mmol/L Normal 3.5-5.1 [facility] Comment on above: Performed By: #### B MP, LAUREN, HEPATIC, CBC, LIPASE #### [address] Sodium [Moles/Vol] 137 mmol/L Normal 136-146 [facility] Comment on above: Performed By: #### B MP, LAUREN, HEPATIC, CBC, LIPASE #### [address] Urea nitrogen [Mass/Vol] 14 mg/dL Normal 9-23 [facility] Comment on above: Performed By: #### B MP, LAUREN, HEPATIC, CBC, LIPASE #### [address] Complete Blood Count Auto Di ffon 10-24-2020 Basophils (Bld) [#/Vol] 0.0 10*3/uL Normal 0.0-0.2 [facility] Comment on above: Result Comment: PERF ORMED BY: [place] [address] PATHOLOGIST [employer] ROSENDA LAU M.D. Performed By: #### B MP, LAUREN, HEPATIC, CBC, LIPASE #### [address] Basophils/100 WBC (Bld) 0.3 % Normal . F [facility] Comment on above: Performed By: #### B MP, LAUREN, HEPATIC, CBC, LIPASE #### [address] Eosinophils (Bld) [#/Vol] 0.0 10*3/uL Normal 0.0-0.45 [facility] Comment on above: Performed By: #### B MP, LAUREN, HEPATIC, CBC, LIPASE #### [address] Eosinophils/100 WBC (Bld) 0.3 % Normal . [facility] Comment on above: Performed By: #### B MP, LAUREN, HEPATIC, CBC, LIPASE #### [address] Erythrocyte distribution width (RBC) [Ratio] 12.5 % Normal 11.9-15.3 [facility] Comment on above: Performed By: #### B MP, LAUREN, HEPATIC, CBC, LIPASE #### [address] Hematocrit (Bld) [Volume fraction] 42.9 % Normal 34.0-46.4 [facility] Comment on above: Performed By: #### B MP, LAUREN, HEPATIC, CBC, LIPASE #### [address] Hemoglobin (Bld) [Mass/Vol] 15.0 g/dL Normal 11.8-15.4 [facility] Comment on above: Performed By: #### B MP, LAUREN, HEPATIC, CBC, LIPASE #### [place] [address] [place] Lymphocytes (Bld) [#/Vol] 1.1 10*3/uL Normal 1.00-4.8 [facility] Comment on above: Performed By: #### B MP, LAUREN, HEPATIC, CBC, LIPASE #### [address] Lymphocytes/100 WBC (Bld) 10.2 % Normal . [facility] Comment on above: Performed By: #### B MP, LAUREN, HEPATIC, CBC, LIPASE #### [address] MCH (RBC) [Entitic mass] 30.6 pg Normal 24.7-34.3 [facility] Comment on above: Performed By: #### B MP, LAUREN, HEPATIC, CBC, LIPASE #### [address] MCV (RBC) [Entitic vol] 87.5 fL Normal 80-100 [facility] Comment on above: Performed By: #### B MP, LAUREN, HEPATIC, CBC, LIPASE #### [address] Mean Corpuscular HGB Conc 34.9 g/dL Normal 32.0-35.0 [facility] Comment on above: Performed By: #### B MP, LAUREN, HEPATIC, CBC, LIPASE #### [address] Monocytes (Bld) [#/Vol] 0.5 10*3/uL Normal 0.0-0.8 [facility] Comment on above: Performed By: #### B MP, LAUREN, HEPATIC, CBC, LIPASE #### [address] Monocytes/100 WBC (Bld) 4.4 % Normal . F [facility] Comment on above: Performed By: #### B MP, LAUREN, HEPATIC, CBC, LIPASE #### [address] Neutrophils (Bld) [#/Vol] 9.5 10*3/uL High 1.8-7.7 [facility] Comment on above: Performed By: #### B MP, LAUREN, HEPATIC, CBC, LIPASE #### [address] Neutrophils/100 WBC (Bld) 84.8 % Normal . [facility] Comment on above: Performed By: #### B MP, LAUREN, HEPATIC, CBC, LIPASE #### [address] [address] [place] Nucleated RBC/100 WBC (Bld) [Ratio] 0.2 % Normal 0-0.5 [facility] Comment on above: Performed By: #### B MP, LAUREN, HEPATIC, CBC, LIPASE #### [address] Platelet mean volume (Bld) [Entitic vol] 7.8 fL Normal 6.3-10.7 [facility] Comment on above: Performed By: #### B MP, LAUREN, HEPATIC, CBC, LIPASE #### [address] Platelets (Bld) [#/Vol] 303 10*3/uL Normal 150-450 [facility] Comment on above: Performed By: #### B MP, LAUREN, HEPATIC, CBC, LIPASE #### [address] RBC (Bld) [#/Vol] 4.90 10*6/uL Normal 3.60-5.00 [facility] Comment on above: Performed By: #### B MP, LAUREN, HEPATIC, CBC, LIPASE #### [address] WBC (Bld) [#/Vol] 11.2 10*3/uL High 4.5-11.0 [facility] Comment on above: Performed By: #### B MP, LAUREN, HEPATIC, CBC, LIPASE #### [address] Dipstick and Microscopicon 0 10-24-2020 Appearance (U) Clear Normal Clear [facility] Comment on above: Order Comment: Name Collection Type:: Clean-Voided Midstream Performed By: #### U HCG, ADDONUAPLUS #### [address] Bacteria,Urine None Seen Normal None Seen [facility] Comment on above: Order Comment: Name Collection Type:: Clean-Voided Midstream Performed By: #### U HCG, ADDONUAPLUS #### [address] [place] [address] [place] Bilirubin,Urine Negative Normal Negative [facility] Comment on above: Order Comment: Name Collection Type:: Clean-Voided Midstream Performed By: #### U HCG, ADDONUAPLUS #### [facility] [address] [place] [address] [place] Color (U) Yellow Normal Yellow [facility] Comment on above: Order Comment: Name Collection Type:: Clean-Voided Midstream Performed By: #### U HCG, ADDONUAPLUS #### [facility] [address] [place] [address] [place] Glucose Ql (U) Normal Normal Normal [facility] Comment on above: Order Comment: Name Collection Type:: Clean-Voided Midstream Performed By: #### U HCG, ADDONUAPLUS #### [place] [address] [place] Hyaline Casts,Urine None Seen Normal 0-1 [facility] Comment on above: Order Comment: Name Collection Type:: Clean-Voided Midstream Performed By: #### U HCG, ADDONUAPLUS #### [facility] [address] [place] [address] [place] Ketones Ql (U) Trace High Negative [facility] Comment on above: Order Comment: Name Collection Type:: Clean-Voided Midstream Performed By: #### U HCG, ADDONUAPLUS #### [facility] [address] [place] [address] [place] Leukocyte esterase Test strip Ql (U) Negative Normal Negative [facility] Comment on above: Order Comment: Name Collection Type:: Clean-Voided Midstream Performed By: #### U HCG, ADDONUAPLUS #### [facility] [address] [place] [address] [place] Nitrite,Urine Negative Normal Negative [facility] Comment on above: Order Comment: Name Collection Type:: Clean-Voided Midstream Performed By: #### U HCG, ADDONUAPLUS #### [facility] [address] [place] [address] [place] Occult Blood,Urine 3+ High Negative [facility] Comment on above: Order Comment: Name Collection Type:: Clean-Voided Midstream Performed By: #### U HCG, ADDONUAPLUS #### [facility] [address] [place] [address] pH (U) 5.0 [pH] Normal 5.0-9.0 [facility] Comment on above: Order Comment: Name Collection Type:: Clean-Voided Midstream Performed By: #### U HCG, ADDONUAPLUS #### [facility] [address] [place] [address] Protein,Urine Negative Normal Negative [facility] Comment on above: Order Comment: Name Collection Type:: Clean-Voided Midstream Performed By: #### U HCG, ADDONUAPLUS #### [facility] [address] [place] [address] RBC,Urine Rare Normal 0-4 [facility] Comment on above: Order Comment: Name Collection Type:: Clean-Voided Midstream Performed By: #### U HCG, ADDONUAPLUS #### [address] Specificy [place],Urine 1.028 Normal 1.001-1.030 [facility] Comment on above: Order Comment: Name Collection Type:: Clean-Voided Midstream Performed By: #### U HCG, ADDONUAPLUS #### [facility] [address] [place] [address] Squamous Epithelial Cell,Urine None Seen Normal 0-2 [facility] Comment on above: Order Comment: Name Collection Type:: Clean-Voided Midstream Performed By: #### U HCG, ADDONUAPLUS #### [facility] [address] [place] [address] Urobilinogen,Urine Normal Normal Normal [facility] Comment on above: Order Comment: Name Collection Type:: Clean-Voided Midstream Performed By: #### U HCG, ADDONUAPLUS #### [facility] [address] [place] [address] WBC,Urine None Seen Normal 0-4 [facility] Comment on above: Order Comment: Name Collection Type:: Clean-Voided Midstream Performed By: #### U HCG, ADDONUAPLUS #### [address] HCG,Urineon 10-24-2020 Beta HCG ( test) Ql (U) Negative Normal [facility] Comment on above: Order Comment: Name Collection Type:: Clean-Voided Midstream Result Comment: PERF ORMED BY: [address] [place] [address] PATHOLOGIST [employer] ROSENDA LAU M.D. Performed By: #### U HCG, ADDONUAPLUS #### [address] Hepatic Panelon 10-24-2020 Albumin [Mass/Vol] 4.5 g/dL Normal 3.2-5.5 [facility] Comment on above: Performed By: #### B MP, LAUREN, HEPATIC, CBC, LIPASE #### [address] Albumin/Globulin [Mass ratio] 2.0 {ratio} Normal [facility] Comment on above: Performed By: #### B MP, LAUREN, HEPATIC, CBC, LIPASE #### [address] ALP [Catalytic activity/Vol] 55 U/L Normal 32-92 [facility] Comment on above: Performed By: #### B MP, LAUREN, HEPATIC, CBC, LIPASE #### [address] ALT [Catalytic activity/Vol] 28 U/L Normal 10-60 [facility] Comment on above: Performed By: #### B MP, LAUREN, HEPATIC, CBC, LIPASE #### [address] AST [Catalytic activity/Vol] 27 U/L Normal 10-42 [facility] Comment on above: Performed By: #### B MP, LAUREN, HEPATIC, CBC, LIPASE #### [address] Bilirubin [Mass/Vol] 1.3 mg/dL High 0.3-1.2 [facility] [place] Comment on above: Result Comment: Samp les from patients who have taken Naproxen have shown spurious elevation in Total Bilirubin levels. A metabolite of Naproxen, O-desmethylnaproxen, has been shown to interfere with the Jendrassik-Grof method for measuring Total Bilirubin. Performed By: #### B MP, LAUREN, HEPATIC, CBC, LIPASE #### [address] Bilirubin,Indirect 1.1 mg/dL Normal [facility] Comment on above: Performed By: #### B MP, LAUREN, HEPATIC, CBC, LIPASE #### [address] Bilirubin.indirect [Mass/Vol] 0.2 mg/dL Normal 0.0-0.4 [facility] Comment on above: Performed By: #### B MP, LAUREN, HEPATIC, CBC, LIPASE #### [address] Globulin (S) [Mass/Vol] 2.3 g/dL Normal F [facility] Comment on above: Performed By: #### B MP, LAUREN, HEPATIC, CBC, LIPASE #### [address] Protein [Mass/Vol] 6.8 g/dL Normal 6.1-7.9 [facility] Comment on above: Performed By: #### B MP, LAUREN, HEPATIC, CBC, LIPASE #### [address] Lipaseon 10-24-2020 Lipase [Catalytic activity/Vol] 26.0 U/L Normal 22-51 [facility] Comment on above: Result Comment: PERF ORMED BY: [place] [address] PATHOLOGIST [employer] ROSENDA LAU M.D. Performed By: #### B MP, LAUREN, HEPATIC, CBC, LIPASE #### [address] CNOVon 06-07-2019 CNOV Office Visit (UCWSTR ) ALEXA ROMERO ([id number]) 1 F Date Time Provider Department 06/07/19 9:15 AM TERE DAVISON During your visit today, we recorded the following information about you: Temperature Pulse Respiration Blood pressure 98.4 degrees 93/minute 18/minute 122/82 Weight 94.2 kg Tere Davison APRN.THERMAL INTELLIGENCE ANALYST 06/07/2019 9:31 AM Signed [facility] [address] [place], [place] [address] Emergency Department Diagnosis: Assessment STY: You have a sty, an infection of one of the tiny glands located on the eyelid. A sty takes several days to develop. It usually forms a small abscess along the edge of the eyelid. The pus that forms in the infected gland must drain for the sty to heal. A sty is treated by applying warm moist compresses to the eye for 15 minutes three times daily until it drains and the swelling and redness are gone. Some sties require surgical drainage. Antibiotic eye drops may be needed if the infection spreads to other areas of the eye. Please see your doctor if your eye is not better after 3 days of treatment. Return immediately of see your doctor for any fever or loss of vision. Tere Davison APRN.THERMAL INTELLIGENCE ANALYST 06/07/2019 10:39 AM Signed Subjective HPI Pt accompanied by mother. Pt presents with c/o left upper eye lid pain x 2 days, eyelid was swollen this am. Denies fever, chills, myalgias, URI sx, vision change, eye pain/redness/drainage . Did not receive influenza vaccine this season. Exposed to sick contacts at work. Review of Systems Constitutional: Negative for chills and fever. HENT: Negative for congestion and sore throat. Eyes: Negative for blurred vision, double vision, photophobia, pain, discharge and redness. Respiratory: Negative for cough. Objective Physical Exam Constitutional: She is oriented to person, place, and time and well-developed, well-nourished, and in no distress. No distress. HENT: Head: Normocephalic. Right Ear: Hearing, tympanic membrane, external ear and ear canal normal. Left Ear: Hearing, tympanic membrane, external ear and ear canal normal. Nose: Nose normal. No mucosal edema. Mouth/Throat: Uvula is midline, oropharynx is clear and moist and mucous membranes are normal. No oropharyngeal exudate. Eyes: Pupils are equal, round, and reactive to light. EOM are normal. Right eye exhibits no discharge. Left eye exhibits hordeolum. Left eye exhibits no discharge. Right conjunctiva is not injected. Left conjunctiva is not injected. Pupils unequal: vision 20/20 via celeste card. Mild generalized edema to left upper eyelid. No erythema, heat, rash. Neck: Neck supple. Cardiovascular: Normal rate, regular rhythm and normal heart sounds. Exam reveals no gallop and no friction rub. No murmur heard. Pulmonary/Chest: Effort normal and breath sounds normal. No respiratory distress. She has no wheezes. She has no rales. Neurological: She is alert and oriented to person, place, and time. Skin: Skin is warm and dry. She is not diaphoretic. BP 122/82 Pulse 93 Temp 36.9 ?C (98.4 ?F) (Tympanic) Resp 18 Wt 94.2 kg (207 lb 9.6 oz) SpO2 100% .Patient presents with: Eye Problem: swelling in (left) eyelid/below eye x yesterday PAST MEDICAL HISTORY Diagnosis Date - Abnormal menstrual periods 2012 Age 11, Normal Currently - Acne vulgaris 03/27/2015 - Depression 03/02/2015 - Family history of cardiomyopathy 12/01/2016 - Overweight 12/01/2016 - Patellofemoral stress syndrome of left knee 12/23/2015 PAST SURGICAL HISTORY Procedure Laterality Date - REMOVE TONSILS/ADENOIDS,<12 Y/O 2004 ALLERGIES Tylenol [Acetaminophen] MEDICATIONS erythromycin ophthalmic ointment Use in the left eye three times daily for 7 days. benzonatate (TESSALON PERLE) 100 mg capsule Take 2 capsules by mouth three times daily as needed. albuterol HFA (PROVENTIL HFA, VENTOLIN HFA) 90 mcg/actuation inhaler Inhale 2 Puffs as instructed every 6 hours as needed. sertraline (ZOLOFT) 50 mg tablet Take 1 tablet by mouth once daily. sertraline (ZOLOFT) 25 mg tablet Take 1 tablet by mouth once daily. acetaminophen (TYLENOL) 325 mg tablet Take 650 mg by mouth every 6 hours as needed for Pain or Fever. FAMILY HISTORY Problem Relation Age of Onset - Heart Mother hypertrophic - other (Bipolar) Father Social History Tobacco Use - Smoking status: Passive Smoke Exposure - Never Smoker - Smokeless tobacco: Never Used - Tobacco comment: step dad in house Substance Use Topics - Alcohol use: Not on file - Drug use: Not on file ASSESSMENT/PLAN: 1. Eyelid edema, left - ICD9: 374.82, ICD10: H02.846 - ERYTHROMYCIN 5 MG/GRAM (0.5 %) EYE OINTMENT Reviewed and printed stye education. Reviewed red flag SANDS acute eye/periorbital cellulitis. The patient/mother is instructed to return or seek emergency treatment if symptoms become worse or with any acute change in condition. The patient/mother verbalizes understanding and is in agreement with plan of care. Tere Davison CNP Referring Provider: SELF [[id number]] Allergies As of Date: 06/07/2019 Noted Allergy Reaction TYLENOL (ACETAMINOPHEN) 01/09/2019 11 - Vomiting Date Reviewed: 01/09/2019 Reviewed by: Laure Stanley Ma - Fully Assessed Reason for Visit: Eye Problem [43] Cmt: swelling in (left) eyelid/below eye x yesterday Reason For Visit History Recorded Primary Visit Diagnosis:Eyelid edema, left [H02.846] Order(s):erythromycin ophthalmic ointmentUse in the left eye three times daily for 7 days.Disp: 3.5 gRfl: 0 Prescriptions as of 06/07/2019 Sig: ERYTHROMYCIN 5 MG/GRAM (0.5 %* Use in the left eye three jose* BENZONATATE 100 MG CAPSULE Take 2 capsules by mouth thre* Patient not taking: Reported on 06/07/2019 ALBUTEROL SULFATE HFA 90 MCG/* Inhale 2 Puffs as instructed * Patient not taking: Reported on 06/07/2019 SERTRALINE 50 MG TABLET Take 1 tablet by mouth once d* Patient not taking: Reported on 01/09/2019 SERTRALINE 25 MG TABLET Take 1 tablet by mouth once d* Patient not taking: Reported on 01/09/2019 ACETAMINOPHEN 325 MG TABLET Take 650 mg by mouth every 6 * Problem List As Of Date 06/07/2019 Noted Resolved Depression [F32.9] 03/02/2015 Acne vulgaris [L70.0] 03/27/2015 Patellofemoral stress syndrome of left knee [M2*12/23/2015 Family history of cardiomyopathy [Z82.49] 12/01/2016 Overweight [E66.3] 12/01/2016 Other instructions from your clinician: [facility] [address] [place], [place] [address] Emergency Department Diagnosis: Assessment STY: You have a sty, an infection of one of the tiny glands located on the eyelid. A sty takes several days to develop. It usually forms a small abscess along the edge of the eyelid. The pus that forms in the infected gland must drain for the sty to heal. A sty is treated by applying warm moist compresses to the eye for 15 minutes three times daily until it drains and the swelling and redness are gone. Some sties require surgical drainage. Antibiotic eye drops may be needed if the infection spreads to other areas of the eye. Please see your doctor if your eye is not better after 3 days of treatment. Return immediately of see your doctor for any fever or loss of vision. Prescriptions ordered this encounter Disp Refills Start End ERYTHROMYCIN 5 MG/GRAM (0.5 %) EYE O* 3.5 g 0 06/07/2019 06/14/2019 Route: LEFT EYE Sig: Use in the left eye three times daily for 7 days. Letter Text Encounter Status:Closed by TERE DAVISON CNP on 06/07/19 Normal [facility] PROGRESSon 06-07-2019 PROGRESS HNO ID: [id number] Author: Tere Davison Service: ? Author Type: Nurse Practitioner Type: Progress Notes Filed: 06/07/2019 10:39 AM Note Text: Subjective HPI Pt accompanied by mother. Pt presents with c/o left upper eye lid pain x 2 days, eyelid was swollen this am. Denies fever, chills, myalgias, URI sx, vision change, eye pain/redness/drainage . Did not receive influenza vaccine this season. Exposed to sick contacts at work. Review of Systems Constitutional: Negative for chills and fever. HENT: Negative for congestion and sore throat. Eyes: Negative for blurred vision, double vision, photophobia, pain, discharge and redness. Respiratory: Negative for cough. Objective Physical Exam Constitutional: She is oriented to person, place, and time and well-developed, well-nourished, and in no distress. No distress. HENT: Head: Normocephalic. Right Ear: Hearing, tympanic membrane, external ear and ear canal normal. Left Ear: Hearing, tympanic membrane, external ear and ear canal normal. Nose: Nose normal. No mucosal edema. Mouth/Throat: Uvula is midline, oropharynx is clear and moist and mucous membranes are normal. No oropharyngeal exudate. Eyes: Pupils are equal, round, and reactive to light. EOM are normal. Right eye exhibits no discharge. Left eye exhibits hordeolum. Left eye exhibits no discharge. Right conjunctiva is not injected. Left conjunctiva is not injected. Pupils unequal: vision 20/20 via celeste card. Mild generalized edema to left upper eyelid. No erythema, heat, rash. Neck: Neck supple. Cardiovascular: Normal rate, regular rhythm and normal heart sounds. Exam reveals no gallop and no friction rub. No murmur heard. Pulmonary/Chest: Effort normal and breath sounds normal. No respiratory distress. She has no wheezes. She has no rales. Neurological: She is alert and oriented to person, place, and time. Skin: Skin is warm and dry. She is not diaphoretic. BP 122/82 Pulse 93 Temp 36.9 ?C (98.4 ?F) (Tympanic) Resp 18 Wt 94.2 kg (207 lb 9.6 oz) SpO2 100% .Patient presents with: Eye Problem: swelling in (left) eyelid/below eye x yesterday PAST MEDICAL HISTORY Diagnosis Date - Abnormal menstrual periods 2013 Age 11, Normal Currently - Acne vulgaris 03/27/2015 - Depression 03/02/2015 - Family history of cardiomyopathy 12/01/2016 - Overweight 12/01/2016 - Patellofemoral stress syndrome of left knee 12/23/2015 PAST SURGICAL HISTORY Procedure Laterality Date - REMOVE TONSILS/ADENOIDS,<12 Y/O 2004 ALLERGIES Tylenol [Acetaminophen] MEDICATIONS erythromycin ophthalmic ointment Use in the left eye three times daily for 7 days. benzonatate (TESSALON PERLE) 100 mg capsule Take 2 capsules by mouth three times daily as needed. albuterol HFA (PROVENTIL HFA, VENTOLIN HFA) 90 mcg/actuation inhaler Inhale 2 Puffs as instructed every 6 hours as needed. sertraline (ZOLOFT) 50 mg tablet Take 1 tablet by mouth once daily. sertraline (ZOLOFT) 25 mg tablet Take 1 tablet by mouth once daily. acetaminophen (TYLENOL) 325 mg tablet Take 650 mg by mouth every 6 hours as needed for Pain or Fever. FAMILY HISTORY Problem Relation Age of Onset - Heart Mother hypertrophic - other (Bipolar) Father Social History Tobacco Use - Smoking status: Passive Smoke Exposure - Never Smoker - Smokeless tobacco: Never Used - Tobacco comment: step dad in house Substance Use Topics - Alcohol use: Not on file - Drug use: Not on file ASSESSMENT/PLAN: 1. Eyelid edema, left - ICD9: 374.82, ICD10: H02.846 - ERYTHROMYCIN 5 MG/GRAM (0.5 %) EYE OINTMENT Reviewed and printed [employer] education. Reviewed red flag SANDS acute eye/periorbital cellulitis. The patient/mother is instructed to return or seek emergency treatment if symptoms become worse or with any acute change in condition. The patient/mother verbalizes understanding and is in agreement with plan of care. Tere Davison CNP [facility] CNOVon 01-09-2019 CNOV Office Visit (UCWSTR ) ALEXA ROMERO ([id number]) 1 F Date Time Provider Department 01/09/19 11:00 [facility] visit today, we recorded the following information about you: Temperature Pulse Respiration Blood pressure 98.3 degrees 90/minute 18/minute 112/72 Weight 96.6 kg Diego Awad APRN.CNP 01/09/2019 12:20 PM Signed Subjective HPI Alexa Romero is a 18 year old female who presents with her mother for URI symptoms for the last five days, but the last 2-3 have been worse. Her nephew had a cough last week. She has tried Nyquil and ibuprofen as needed. She feels winded and says coughing is painful. No history of asthma, non smoker. Review of Systems Constitutional: Positive for malaise/fatigue. Negative for chills and fever. HENT: Positive for congestion. Negative for ear pain, sinus pain and sore throat. Respiratory: Positive for cough, sputum production, shortness of breath and wheezing. Negative for hemoptysis. Cardiovascular: Negative for chest pain. Musculoskeletal: Negative for joint pain and myalgias. Skin: Negative for itching and rash. Neurological: Positive for tremors (feels shaky ). Negative for dizziness, weakness and headaches. BP 112/72 Pulse 90 Temp 36.8 ?C (98.3 ?F) (Tympanic) Resp 18 Wt 96.6 kg (213 lb) SpO2 98% PAST MEDICAL HISTORY Diagnosis Date - Abnormal menstrual periods 2013 Age 11, Normal Currently - Acne vulgaris 03/27/2015 - Depression 03/02/2015 - Family history of cardiomyopathy 12/01/2016 - Overweight 12/01/2016 - Patellofemoral stress syndrome of left knee 12/23/2015 PAST SURGICAL HISTORY Procedure Laterality Date - REMOVE TONSILS/ADENOIDS,<12 Y/O 2004 ALLERGIES Tylenol [Acetaminophen] MEDICATIONS norgestimate 0.25 mg-ethinyl estradiol 35 mcg (SPRINTEC) 0.25-35 mg-mcg per tablet Take 1 tablet by mouth once daily. minocycline (MINOCIN, DYNACIN) 100 mg capsule Take 1 capsule by mouth once daily. (for acne) sertraline (ZOLOFT) 50 mg tablet Take 1 tablet by mouth once daily. sertraline (ZOLOFT) 25 mg tablet Take 1 tablet by mouth once daily. acetaminophen (TYLENOL) 325 mg tablet Take 650 mg by mouth every 6 hours as needed for Pain or Fever. FAMILY HISTORY Problem Relation Age of Onset - Heart Mother hypertrophic - other (Bipolar) Father Social History Tobacco Use - Smoking status: Passive Smoke Exposure - Never Smoker - Smokeless tobacco: Never Used - Tobacco comment: step dad in house Substance Use Topics - Alcohol use: Not on file - Drug use: Not on file Objective Physical Exam Constitutional: She is oriented to person, place, and time and well-developed, well-nourished, and in no distress. HENT: Head: Normocephalic and atraumatic. Right Ear: Tympanic membrane is not erythematous and not bulging. Left Ear: Tympanic membrane is not erythematous and not bulging. Nose: Mucosal edema and rhinorrhea present. Right sinus exhibits no maxillary sinus tenderness and no frontal sinus tenderness. Left sinus exhibits no maxillary sinus tenderness and no frontal sinus tenderness. Mouth/Throat: No oropharyngeal exudate, posterior oropharyngeal edema or posterior oropharyngeal erythema. Eyes: Conjunctivae are normal. Cardiovascular: Normal rate, regular rhythm, normal heart sounds and intact distal pulses. Exam reveals no gallop and no friction rub. No murmur heard. Pulmonary/Chest: Effort normal and breath sounds normal. No respiratory distress. She has no wheezes. She has no rales. She exhibits no tenderness. Musculoskeletal: She exhibits no edema. Lymphadenopathy: She has no cervical adenopathy. Neurological: She is alert and oriented to person, place, and time. Gait normal. Skin: Skin is warm and dry. She is not diaphoretic. Psychiatric: Mood, memory, affect and judgment normal. ASSESSMENT/PLAN: 1. Bronchitis - ICD9: 490, ICD10: J40 (primary diagnosis) - PREDNISONE 20 MG TABLET - BENZONATATE 100 MG CAPSULE - GUAIFENESIN ER 600 MG TABLET, EXTENDED RELEASE 12 HR - ALBUTEROL SULFATE HFA 90 MCG/ACTUATION AEROSOL INHALER - discussed red flag symptoms and reasons to be evaluated in ED 2. Cough - ICD9: 786.2, ICD10: R05 - XR CHEST 2V FRONTAL/LAT RESULT: Lines, tubes, and devices: ?None. Lungs and pleura: ?No consolidation. No pleural effusion. ?No pneumothorax. Cardiomediastinal silhouette: ?Normal cardiomediastinal silhouette. Other: ?No bony abnormalities. Impression IMPRESSION: No acute radiographic abnormality. [employer] Hasher And Renderer: RAFFY ? Transcribe Date/Time: Jan 11:48A Dictated by : ANIBAL EDMONDS MD This examination was interpreted and the report reviewed and electronically signed by: ANIBAL EDMONDS MD on Jan 11:49AM ?EST Patient understands if he/she develops any shortness of breath, chest pain, or persistent fever, they should be taken to the ER immediately or call 911. All of the above discussed with the patient in detail. Patient is in agreement with the above plan. Treatment and plan of care discussed including course of treatment, possible medication side effects, and what to watch for in regards to worsening signs and symptoms. All questions addressed. YUMIKO Wang APRN.CNP 01/09/2019 12:01 PM Signed [facility] [address] [place], [place] [address] Emergency Department Diagnosis: Assessment ACUTE BRONCHITIS: You have acute bronchitis. This means the airway passages in your lungs are inflamed. Bronchitis may be caused by viruses or bacteria. Inhaling cigarette smoke will always make it worse. Exposure to irritating chemicals or second hand smoke as well as allergies can contribute to bronchitis. Repeat episodes of bronchitis may cause lifelong lung problems. Acute bronchitis is usually treated with rest, fluids, cough medicine, and possibly antibiotics or inhaled medicine to open up the small airways. It is very important that you avoid smoke and drink increased amounts of fluids. A cool air vaporizer can help thin bronchial secretions. This makes it easier to cough and clear your chest. If you are a cigarette smoker, consider using nicotine gum or skin patches to help you withdraw. Recovery from bronchitis is often slow, but you should start feeling better after 2-3 days of treatment. Please call your doctor or return here if you have any of the following symptoms: - Increased fever, chills, or chest pain. - Severe shortness of breath or bloody sputum. - Do not improve after 3 days of proper treatment. Referring Provider: SELF [200] Allergies As of Date: 01/09/2019 Noted Allergy Reaction TYLENOL (ACETAMINOPHEN) 01/09/2019 11 - Vomiting Date Reviewed: 01/09/2019 Reviewed by: Laure Stanley Ma - Fully Assessed Reason for Visit: Chest Congestion [236] Cmt: head congestion and cough x 5 days Primary Visit Diagnosis:Bronchitis [J40] Other Visit Diagnosis:Cough [R05] Order(s):XR CHEST 2V FRONTAL/LAT [[id number]] Order #: [id number] FUTURE predniSONE (DELTASONE) 20 mg tabletTake 2 tablets by mouth once daily for 5 days. Take daily with food.Disp: 10 tabletRfl: 0 benzonatate (TESSALON PERLE) 100 mg capsuleTake 2 capsules by mouth three times daily as needed.Disp: 42 capsuleRfl: 0 guaiFENesin (MUCINEX) 600 mg 12 hr tabletTake 2 tablets by mouth twice daily for 5 days.Disp: 20 tabletRfl: 0 albuterol HFA (PROVENTIL HFA, VENTOLIN HFA) 90 mcg/actuation inhalerInhale 2 Puffs as instructed every 6 hours as needed.Disp: 1 InhalerRfl: 0 Inhalational Spacing Device spcr1 Device one time only for 1 dose.Disp: 1 EachRfl: 0 Prescriptions as of 01/09/2019 Sig: PREDNISONE 20 MG TABLET Take 2 tablets by mouth once * BENZONATATE 100 MG CAPSULE Take 2 capsules by mouth thre* GUAIFENESIN ER 600 MG TABLET,* Take 2 tablets by mouth twice* ALBUTEROL SULFATE HFA 90 MCG/* Inhale 2 Puffs as instructed * INHALATIONAL SPACING DEVICE 1 Device one time only for 1 * SERTRALINE 50 MG TABLET Take 1 tablet by mouth once d* Patient not taking: Reported on 01/09/2019 SERTRALINE 25 MG TABLET Take 1 tablet by mouth once d* Patient not taking: Reported on 01/09/2019 ACETAMINOPHEN 325 MG TABLET Take 650 mg by mouth every 6 * Problem List As Of Date 01/09/2019 Noted Resolved Depression [F32.9] INVALID FOR* Acne vulgaris [L70.0] INVALID FOR* Patellofemoral stress syndrome of left knee [M2*INVALID FOR* Family history of cardiomyopathy [Z82.49] INVALID FOR* Overweight [E66.3] INVALID FOR* Other instructions from your clinician: [facility] [address] [place], [place] [address] Emergency Department Diagnosis: Assessment ACUTE BRONCHITIS: You have acute bronchitis. This means the airway passages in your lungs are inflamed. Bronchitis may be caused by viruses or bacteria. Inhaling cigarette smoke will always make it worse. Exposure to irritating chemicals or second hand smoke as well as allergies can contribute to bronchitis. Repeat episodes of bronchitis may cause lifelong lung problems. Acute bronchitis is usually treated with rest, fluids, cough medicine, and possibly antibiotics or inhaled medicine to open up the small airways. It is very important that you avoid smoke and drink increased amounts of fluids. A cool air vaporizer can help thin bronchial secretions. This makes it easier to cough and clear your chest. If you are a cigarette smoker, consider using nicotine gum or skin patches to help you withdraw. Recovery from bronchitis is often slow, but you should start feeling better after 2-3 days of treatment. Please call your doctor or return here if you have any of the following symptoms: - Increased fever, chills, or chest pain. - Severe shortness of breath or bloody sputum. - Do not improve after 3 days of proper treatment. Prescriptions ordered this encounter Disp Refills Start End PREDNISONE 20 MG TABLET 10 t* 0 01/09/2019 01/14/2019 Route: ORAL Sig: Take 2 tablets by mouth once daily for 5 days. Take daily with food. BENZONATATE 100 MG CAPSULE 42 c* 0 01/09/2019 Route: ORAL Sig: Take 2 capsules by mouth three times daily as needed. GUAIFENESIN ER 600 MG TABLET, EXTEND* 20 t* 0 01/09/2019 01/14/2019 Route: ORAL Sig: Take 2 tablets by mouth twice daily for 5 days. ALBUTEROL SULFATE HFA 90 MCG/ACTUATI* 1 In* 0 01/09/2019 Cmt: Generic or brand: dispense inhaler preferred by patient/insurance unless ASHLEY flag is selected. Route: INHALATION Sig: Inhale 2 Puffs as instructed every 6 hours as needed. INHALATIONAL SPACING DEVICE 1 Ea* 0 01/09/2019 01/09/2019 Route: Misc Si Device one time only for 1 dose. Medications Discontinued During This Encounter norgestimate 0.25 mg-ethinyl estradi* 1 Pa* 2 10/16/2017 01/09/2019 Route: ORAL Sig: Take 1 tablet by mouth once daily. Patient not taking: Reported on 01/09/2019 Disc: Discontinued by Patient minocycline (MINOCIN, DYNACIN) 100 m* 30 c* 5 09/30/2016 01/09/2019 Route: ORAL Sig: Take 1 capsule by mouth once daily. (for acne) Patient not taking: Reported on 01/09/2019 Disc: Discontinued by Patient Encounter Status:Closed by ALEKSANDRA HAYES.DIEGO GRESHAM on 01/09/19 [facility] PROGRESSon 01-09-2019 PROGRESS HNO ID: [id number] Author: Nevin Hill (RtSarah Palmer Service: ? Author Type: Truck Mechanic Type: Progress Notes Filed: 01/09/2019 11:44 AM Note Text: Radiology Service Progress Note PATIENT NAME: Alexa Romero DATE OF SERVICE: January 09, 2019 TIME: 11:32 AM PATIENT IDENTITY VERIFICATION COMPLETED USING TWO (2) METHODS: Patient confirmed name verbally and Date of . PATIENT GENDER DATA: Female. status: : No status: NO. PATIENT RELEVANT IMPLANT DATA REVIEWED: Not Applicable RADIOLOGY DEPARTMENT: General X-ray: Exam(s) Completed: Chest X-Ray PERIPHERAL IV DATA: Not applicable SIGNED BY: RT Luis January 09, 2019 11:32 AM [facility] PROGRESS HNO ID: [id number] Author: Diego Awad Service: ? Author Type: Nurse Practitioner Type: Progress Notes Filed: 01/09/2019 12:20 PM Note Text: Subjective HPI Alexa Romero is a 18 year old female who presents with her mother for URI symptoms for the last five days, but the last 2-3 have been worse. Her nephew had a cough last week. She has tried Nyquil and ibuprofen as needed. She feels winded and says coughing is painful. No history of asthma, non smoker. Review of Systems Constitutional: Positive for malaise/fatigue. Negative for chills and fever. HENT: Positive for congestion. Negative for ear pain, sinus pain and sore throat. Respiratory: Positive for cough, sputum production, shortness of breath and wheezing. Negative for hemoptysis. Cardiovascular: Negative for chest pain. Musculoskeletal: Negative for joint pain and myalgias. Skin: Negative for itching and rash. Neurological: Positive for tremors (feels shaky ). Negative for dizziness, weakness and headaches. BP 112/72 Pulse 90 Temp 36.8 ?C (98.3 ?F) (Tympanic) Resp 18 Wt 96.6 kg (213 lb) SpO2 98% PAST MEDICAL HISTORY Diagnosis Date - Abnormal menstrual periods 2012 Age 11, Normal Currently - Acne vulgaris 03/27/2015 - Depression 03/02/2015 - Family history of cardiomyopathy 12/01/2016 - Overweight 12/01/2016 - Patellofemoral stress syndrome of left knee 12/23/2015 PAST SURGICAL HISTORY Procedure Laterality Date - REMOVE TONSILS/ADENOIDS,<12 Y/O 2004 ALLERGIES Tylenol [Acetaminophen] MEDICATIONS norgestimate 0.25 mg-ethinyl estradiol 35 mcg (SPRINTEC) 0.25-35 mg-mcg per tablet Take 1 tablet by mouth once daily. minocycline (MINOCIN, DYNACIN) 100 mg capsule Take 1 capsule by mouth once daily. (for acne) sertraline (ZOLOFT) 50 mg tablet Take 1 tablet by mouth once daily. sertraline (ZOLOFT) 25 mg tablet Take 1 tablet by mouth once daily. acetaminophen (TYLENOL) 325 mg tablet Take 650 mg by mouth every 6 hours as needed for Pain or Fever. FAMILY HISTORY Problem Relation Age of Onset - Heart Mother hypertrophic - other (Bipolar) Father Social History Tobacco Use - Smoking status: Passive Smoke Exposure - Never Smoker - Smokeless tobacco: Never Used - Tobacco comment: step dad in house Substance Use Topics - Alcohol use: Not on file - Drug use: Not on file Objective Physical Exam Constitutional: She is oriented to person, place, and time and well-developed, well-nourished, and in no distress. HENT: Head: Normocephalic and atraumatic. Right Ear: Tympanic membrane is not erythematous and not bulging. Left Ear: Tympanic membrane is not erythematous and not bulging. Nose: Mucosal edema and rhinorrhea present. Right sinus exhibits no maxillary sinus tenderness and no frontal sinus tenderness. Left sinus exhibits no maxillary sinus tenderness and no frontal sinus tenderness. Mouth/Throat: No oropharyngeal exudate, posterior oropharyngeal edema or posterior oropharyngeal erythema. Eyes: Conjunctivae are normal. Cardiovascular: Normal rate, regular rhythm, normal heart sounds and intact distal pulses. Exam reveals no gallop and no friction rub. No murmur heard. Pulmonary/Chest: Effort normal and breath sounds normal. No respiratory distress. She has no wheezes. She has no rales. She exhibits no tenderness. Musculoskeletal: She exhibits no edema. Lymphadenopathy: She has no cervical adenopathy. Neurological: She is alert and oriented to person, place, and time. Gait normal. Skin: Skin is warm and dry. She is not diaphoretic. Psychiatric: Mood, memory, affect and judgment normal. ASSESSMENT/PLAN: 1. Bronchitis - ICD9: 490, ICD10: J40 (primary diagnosis) - PREDNISONE 20 MG TABLET - BENZONATATE 100 MG CAPSULE - GUAIFENESIN ER 600 MG TABLET, EXTENDED RELEASE 12 HR - ALBUTEROL SULFATE HFA 90 MCG/ACTUATION AEROSOL INHALER - discussed red flag symptoms and reasons to be evaluated in ED 2. Cough - ICD9: 786.2, ICD10: R05 - XR CHEST 2V FRONTAL/LAT RESULT: Lines, tubes, and devices: ?None. Lungs and pleura: ?No consolidation. No pleural effusion. ?No pneumothorax. Cardiomediastinal silhouette: ?Normal cardiomediastinal silhouette. Other: ?No bony abnormalities. Impression IMPRESSION: No acute radiographic abnormality. Ole[employer] Hasher And Renderer: RAFFY ? Transcribe Date/Time: Jan 11:48A Dictated by : ANIBAL EDMONDS MD This examination was interpreted and the report reviewed and electronically signed by: ANIBAL EDMONDS MD on Jan 11:49AM ?EST Patient understands if he/she develops any shortness of breath, chest pain, or persistent fever, they should be taken to the ER immediately or call 911. All of the above discussed with the patient in detail. Patient is in agreement with the above plan. Treatment and plan of care discussed including course of treatment, possible medication side effects, and what to watch for in regards to worsening signs and symptoms. All questions addressed. Diego Awad, FREDDY.THERMAL INTELLIGENCE ANALYST [facility] XR CHEST 2V FRONTAL/LATon XR CHEST 2V FRONTAL/LAT * * *Final Repor t* * * DATE OF EXAM: Jan 09 2019 11:44AM WOX [id number] - XR CHEST 2V FRONTAL/LAT / PROCEDURE REASON: Cough * * * * Physician Interpretation * * * * EXAMINATION: CHEST RADIOGRAPH (2 VIEW FRONTAL and LATERAL) CLINICAL HISTORY: Cough MQ: XC2_5 Comparison: None RESULT: Lines, tubes, and devices: None. Lungs and pleura: No consolidation. No pleural effusion. No pneumothorax. Cardiomediastinal silhouette: Normal cardiomediastinal silhouette. Other: No bony abnormalities. IMPRESSION: No acute radiographic abnormality. Oleo Hasher And Renderer: RAFFY Transcribe Date/Time: Jan 09 2019 11:48A Dictated by : ANIBAL EDMONDS MD This examination was interpreted and the report reviewed and electronically signed by: ANIBAL EDMONDS MD on Jan 09 2019 11:49AM EST [id number] [facility] Vital Signs Date Time Vital Sign Value Performing Clinician Facility 01-12-2025 08:40-0400 Body mass index (BMI) [Ratio] 35.43 kg/m2 Anay Carrillo DEVELOPMENTAL WRITING INSTRUCTOR.THERMAL INTELLIGENCE ANALYST Work Phone: [facility] 01-12-2025 08:40-0400 Body temperature 98.1 [degF] Anay Carrillo DEVELOPMENTAL WRITING INSTRUCTOR.THERMAL INTELLIGENCE ANALYST Work Phone: [facility] 01-12-2025 08:40-0400 Body weight 90.72 kg Aany Carrillo DEVELOPMENTAL WRITING INSTRUCTOR.THERMAL INTELLIGENCE ANALYST Work Phone: [facility] 01-12-2025 08:40-0400 Diastolic blood pressure 84 mm[Hg] Anay Carrillo DEVELOPMENTAL WRITING INSTRUCTOR.THERMAL INTELLIGENCE ANALYST Work Phone: [facility] 01-12-2025 08:40-0400 Heart rate 81 /min Anay Carrillo DEVELOPMENTAL WRITING INSTRUCTOR.THERMAL INTELLIGENCE ANALYST Work Phone: [facility] 01-12-2025 08:40-0400 Respiratory rate 18 /min Anay Carrillo DEVELOPMENTAL WRITING INSTRUCTOR.THERMAL INTELLIGENCE ANALYST Work Phone: [facility] 01-12-2025 08:40-0400 SaO2% (BldA) [Mass fraction] 100 % Anay Carrillo DEVELOPMENTAL WRITING INSTRUCTOR.THERMAL INTELLIGENCE ANALYST Work Phone: [facility] 01-12-2025 08:40-0400 Systolic blood pressure 114 mm[Hg] Anay Carrillo DEVELOPMENTAL WRITING INSTRUCTOR.THERMAL INTELLIGENCE ANALYST Work Phone: [facility] 08-23-2023 14:19-0400 Body height 160.[address] Sandra Mooney Work Phone: [facility] 08-23-2023 14:17-0400 Body mass index (BMI) [Ratio] 37.7 kg/m2 Dr. Sandra Mooney Work Phone: [facility] 08-23-2023 14:17-0400 Body weight 96.[address] Sandra Mooney Work Phone: [facility] 08-23-2023 14:17-0400 Diastolic blood pressure 79 mm[Hg] Dr. Sandra Mooney Work Phone: [facility] 08-23-2023 14:17-0400 Systolic blood pressure 115 mm[Hg] Dr. Sandra Mooney Work Phone: [facility] 08-17-2023 14:23-0400 Body mass index (BMI) [Ratio] 38.1 kg/m2 Dr. Sandra Mooney Work Phone: [facility] 08-17-2023 14:23-0400 Body weight 97.[address] Sandra Mooney Work Phone: [facility] 08-17-2023 14:23-0400 Diastolic blood pressure 84 mm[Hg] Dr. Sandra Mooney Work Phone: [facility] 08-17-2023 14:23-0400 Systolic blood pressure 119 mm[Hg] Dr. Sandra Mooney Work Phone: [facility] 07-25-2023 14:26-0500 Diastolic blood pressure 73 mm[Hg] Dr. Sandra Mooney Work Phone: [facility] 07-25-2023 14:26-0500 Systolic blood pressure 119 mm[Hg] Dr. Sandra Mooney Work Phone: [facility] 07-25-2023 14:25-0500 Body mass index (BMI) [Ratio] 38 kg/m2 Dr. Sandra Mooney Work Phone: [facility] 07-25-2023 14:25-0500 Body weight 97.[address] Sandra Mooney Work Phone: [facility] 07-13-2023 15:23-0500 Diastolic Blood Pressure Non-Invasive 86 mm[Hg] DR JESSICA PAZ MD [facility] 07-13-2023 15:23-0500 Heart rate 84 /min DR JESSICA PAZ MD [facility] 07-13-2023 15:23-0500 Respiratory rate 18 /min DR JESSICA PAZ MD [facility] 07-13-2023 15:23-0500 Systolic Blood Pressure Non-Invasive 118 mm[Hg] DR JESSICA PAZ MD [facility] 07-13-2023 12:47-0500 Body temperature 97.52 [degF] DR JESSICA PAZ MD [address] [place] [address] 07-13-2023 12:47-0500 Body weight 97.[address] JESSICA PAZ MD [address] 07-13-2023 12:47-0500 Diastolic Blood Pressure Non-Invasive 87 mm[Hg] DR JESSICA PAZ MD [address] [place] [address] 07-13-2023 12:47-0500 Heart rate 95 /min DR JESSICA PAZ MD [address] [place] [address] 07-13-2023 12:47-0500 Respiratory rate 18 /min DR JESSICA PAZ MD [facility] 07-13-2023 12:47-0500 Systolic Blood Pressure Non-Invasive 148 mm[Hg] DR JESSICA PAZ MD [facility] 06-26-2023 14:07-0500 Body height 160.[address] Peggy Lei Work Phone: [facility] 06-26-2023 14:07-0500 Body mass index (BMI) [Ratio] 38.7 kg/m2 Dr. Peggy Lei Work Phone: [facility] 06-26-2023 14:07-0500 Body weight 99.[address] Peggy Lei Work Phone: 2(385)474-68[address] [place] [address] 06-26-2023 14:07-0500 Diastolic blood pressure 83 mm[Hg] Dr. Peggy Lei Work Phone: 3(049)590-274216 [place] [address] 06-26-2023 14:07-0500 Systolic blood pressure 131 mm[Hg] Dr. Peggy Lei Work Phone: 6(099)328-59[address] [place] [address] 03-20-2023 10:00-0400 Body height 160.[address] Peggy Lei Work Phone: 0(349)676-359016 [place] [address] 03-20-2023 10:00-0400 Body mass index (BMI) [Ratio] 38.7 kg/m2 Dr. Peggy Lei Work Phone: 5(892)807-795816 [place] [address] 03-20-2023 10:00-0400 Body weight 99.[address] Peggy Lei Work Phone: 7(868)488-581116 [place] [address] 03-20-2023 10:00-0400 Diastolic blood pressure 96 mm[Hg] Dr. Peggy Lei Work Phone: 5(012)062-545016 [place] [address] 03-20-2023 10:00-0400 Systolic blood pressure 118 mm[Hg] Dr. Peggy Lei Work Phone: 1(761)901-047516 [place] [address] 01-23-2022 15:08-0400 Respiratory rate 16 /min [facility] Work Phone: 01-23-2022 14:27-0400 Body height 160.02 cm [facility] Work Phone: 01-23-2022 14:27-0400 Body mass index (BMI) [Ratio] 37.2 kg/m2 [facility] Work Phone: 01-23-2022 14:27-0400 Body temperature 99.8 [degF] [facility] Work Phone: 01-23-2022 14:27-0400 Body weight 95.25 kg [facility] Work Phone: 01-23-2022 14:27-0400 Diastolic blood pressure 74 mm[Hg] [facility] Work Phone: 01-23-2022 14:27-0400 Heart rate 99 /min [facility] Work Phone: 01-23-2022 14:27-0400 SaO2% (BldA) [Mass fraction] 100 % [facility] Work Phone: 01-23-2022 14:27-0400 Systolic blood pressure 122 mm[Hg] [facility] Work Phone: Encounters Encounter Date Encounter Type Care Provider Facility Start: 01-12-2025 End: 01-12-2025 Emergency department patient visit VIJAY SMART Facility:[facility] Start: 01-12-2025 End: 01-12-2025 Patient encounter procedure Anay Gerardo DEVELOPMENTAL WRITING INSTRUCTOR.THERMAL INTELLIGENCE ANALYST Work Phone: [facility] Comment on above: Acute intractable he adache, unspecified headache type (Primary Dx); Acute non-recurrent frontal sinusitis Start: 01-12-2025 End: 01-12-2025 ambulatory ANAYDONTE CARRILLO Facility:[id number] Start: 12-19-2024 End: 12-19-2024 ambulatory No Primary Care Physician Facility:[facility] Start: 12-19-2024 End: 12-19-2024 ambulatory No Primary Care Physician Facility:[facility] Start: 10-23-2024 ambulatory No Primary Car e Physician Facility:[facility] Start: 09-12-2024 End: 09-12-2024 ambulatory No Primary Care Physician Facility:[facility] Start: 08-19-2024 End: 08-19-2024 ambulatory LOS MULLEN DO Facility:A Start: 08-05-2024 End: 08-05-2024 ambulatory Sandra Mooney Facility:[facility] Start: 06-10-2024 End: 06-10-2024 ambulatory NOHELIA LADD PA-C Facility:A Start: 05-20-2024 End: 05-20-2024 ambulatory REAGAN CAN MD Facility:A Start: 03-18-2024 End: 03-18-2024 ambulatory No Primary Care Physician Facility:[facility] Start: 02-14-2024 End: 02-14-2024 ambulatory No Primary Care Physician Facility:[facility] Start: 02-08-2024 End: 02-08-2024 ambulatory No Primary Care Physician Facility:[facility] Start: 02-06-2024 ambulatory Sandra Mooney Fa cility:[facility] Start: 02-05-2024 End: 02-05-2024 ambulatory No Primary Care Physician Facility:[facility] Start: 01-31-2024 ambulatory Sandra Mooney Fa cility:[facility] Start: 01-31-2024 End: 02-04-2024 Evaluation and management of inpatient Sandra Mooney Facility:[facility] Start: 01-31-2024 End: 01-31-2024 ambulatory Sandra Mooney Facility:[facility] Start: 01-31-2024 End: 01-31-2024 ambulatory Sandra Mooney Facility:[facility] Start: 01-26-2024 End: 01-26-2024 ambulatory No Primary Care Physician Facility:[facility] Start: 01-22-2024 End: 01-22-2024 ambulatory Sandra Mooney Facility:[facility] Start: 01-22-2024 End: 01-22-2024 ambulatory Sandra Mooney Facility:[facility] Start: 01-17-2024 End: 01-17-2024 ambulatory Sandra Mooney Facility:[facility] Start: 01-10-2024 End: 01-10-2024 ambulatory No Primary Care Physician Facility:[facility] Start: 01-10-2024 End: 01-10-2024 ambulatory No Primary Care Physician Facility:[facility] Start: 01-05-2024 End: 01-09-2024 ambulatory NONE PHYSICIAN Facility:A Start: 01-05-2024 End: 01-05-2024 ambulatory NONE PHYSICIAN Facility:A Start: 10-18-2023 End: 10-18-2023 ambulatory MAURICIO ROSADOANAN [facility] Start: 09-20-2023 End: 09-20-2023 ambulatory [facility] Start: 09-06-2023 End: 09-06-2023 ambulatory [facility] Start: 08-23-2023 End: 08-23-[address] Sandra Mooney Work Phone: [facility] Work Phone: Start: 08-23-2023 End: 08-23-[address] Sandra Mooney Work Phone: [facility] Work Phone: Start: 08-17-2023 End: 08-17-[address] Sandra Mooney Work Phone: [facility] Work Phone: Start: 08-10-2023 End: 08-10-[address] [facility] Facility:A Start: 07-25-2023 End: 07-25-[address] Sandra Mooney Work Phone: [facility] Work Phone: Start: 07-13-2023 End: 07-13-2023 Emergency department patient visit DR JESSICA PAZ MD [facility] Start: 07-11-2023 End: 07-11-[address] Peggy Lei Work Phone: [facility] Work Phone: Start: 07-11-2023 End: 07-11-[address] [facility] Work Phone: Start: 06-26-2023 End: 06-26-[address] Peggy Lei Work Phone: [facility] Work Phone: Start: 06-26-2023 End: 06-26-[address] [facility] Le[facility] Work Phone: Start: 06-26-2023 End: 06-26-[address] Peggy Lei Work Phone: [facility] Work Phone: Start: 06-14-2023 End: 06-14-[address] Peggy Lei Work Phone: [facility] Work Phone: Start: 06-14-2023 End: 06-14-[address] Peggy Lei Work Phone: [facility] Work Phone: Start: 06-08-2023 End: 06-08-[address] Peggy Lei Work Phone: [facility] Work Phone: Start: 06-08-2023 End: 06-08-[address] Peggy Lei Work Phone: [facility] Work Phone: Start: 06-06-2023 End: 06-06-[address] Peggy Lei Work Phone: [facility] Work Phone: Start: 06-06-2023 End: 06-06-[address] Peggy Lei Work Phone: [facility] Work Phone: Start: 05-09-2023 Non-patient / Non-visit Dr. Michael Lei Work Phone: [facility] Start: 05-09-2023 End: 05-09-[address] Peggy Lei Work Phone: [facility] Work Phone: Start: 05-09-2023 End: 05-09-[address] Peggy Lei Work Phone: [facility]-Radiology, [facility] Work Phone: Start: 04-30-2023 End: 04-30-2023 ambulatory NOHELIA FLORES MD. Facility:A Start: 03-27-2023 End: 03-27-[address] Peggy Lei Work Phone: [facility] Work Phone: Start: 03-27-2023 End: 03-27-[address] Peggy Lei Work Phone: [facility]-Ultrasound, [facility] Work Phone: Start: 03-20-2023 End: 03-20-[address] Peggy Lei Work Phone: [facility] Work Phone: Start: 01-23-2022 End: 01-23-2022 Emergency department patient visit [facility]-Emergency Department Start: 09-15-2021 End: 09-15-2021 Subsequent hospital visit by physician Peggy Lei Work Phone: [facility] Comment on above: R.ANKLE INJ/FALL/TRI AGE Procedures Date Procedure Procedure Detail Performing Clinician Start: 06-26-[address] Braydon Lei Work Phone: Start: 06-14-[address] ic ultrasonography Dr. Peggy Lei Work Phone: Start: 05-09-[address] Modesta Lei Work Phone: Start: 03-27-[address] Liz Lei Work Phone: Start: 03-27-[address] Peggy Lei Work Phone: Start: 01-23-2022 Radiography of ankle Start: 12-01-2016 Adult depression scr eening assessment Peggy Lei Work Phone: Tonsillectomy and adenoidectomy DR JESSICA PAZ MD Plan of Treatment Date Care Activity Detail Author Start: 11-12-2033 Urine microalbumin profile DTaP,Tdap,Td Vaccine (7 - Td or Tdap) [facility] Start: 02-03-2025 Influenza vaccination Influenza Vaccine (#1) [facility] Start: 08-23-2023 Patient referral [facility] Work Phone: Start: 06-26-2023 Chlamydia deoxyribonucleic acid detection [facility] Start: 04-09-2023 Urine microalbumin profile DTAP,TDAP,TD (6 - Td or Tdap) [facility] Start: 02-03-2022 Influenza vaccination INFLUENZA (Season Ended) [facility] Start: 2021 Screening for malignant neoplasm of cervix Cervical Cancer Screening [facility] Start: 2018 Anxiety Screening Anxiety Screening [facility] Start: 2018 CHLAMYDIA SCREENING (18-24) CHLAMYDIA SCREENING (18-24) [facility] Start: 2018 GC (GONORRHEA) SCREENING (18-24) GC (GONORRHEA) SCREENING (18-24) [facility] Start: 2018 HEPATITIS C SCREENING HEPATITIS C SCREENING [facility] Start: 2018 Hepatitis C screening Hepatitis C Screening [facility] Start: 2018 HIV SCREENING HIV SCREENING [facility] Start: 2018 HIV screening HIV Screening [facility] Start: 12-01-2017 Adult depression screening assessment DEPRESSION SCREENING [facility] Start: 2014 PEDS TO ADULT TRANSITION ANNUAL ASSESSMENT PEDS TO ADULT TRANSITION ANNUAL ASSESSMENT [facility] Start: 2012 PEDS TO ADULT TRANSITION INITIAL DISCUSSION PEDS TO ADULT TRANSITION INITIAL DISCUSSION [facility] Start: 2005 COVID-19 VACCINE (1) COVID-19 VACCINE (1) [facility] Assessment of gestational age [facility] CBC W Auto Different ial panel - Blood [facility] Hemoglobin A1c/Hemoglobin.total in Blood [facility] Hepatitis B surface antigen measurement [facility] Hepatitis C antibody measurement [facility] HIV 1+2 Ab+HIV1 p24 Ag [Presence] in Serum or Plasma by Immunoassay [facility] Laboratory data interpretation [facility] Neisseria gonorrhoea e rRNA [Presence] in Unspecified specimen by PADMINI with probe detection [facility] Patient Education ED Ankle Sprai n (Adult) [facility] Work Phone: Patient referral [facility] Work Phone: PCR test for Chlamyd ia trachomatis [facility] Rubella IgG measurement [facility] Treponema sp Ab [Pre sence] in Serum [facility] Immunizations Immunization Date Immunization Notes Care Provider Michael hernandez 06-27-2018 influenza virus vacc ine, unspecified formulation Anay Carrillo DEVELOPMENTAL WRITING INSTRUCTOR.THERMAL INTELLIGENCE ANALYST Work Phone: [facility] 01-06-2017 hepatitis A vaccine, pediatric/adolescent dosage, 2 dose schedule Peggy Carrascoh Work Phone: [facility] Work Phone: 01-06-2017 Human Papillomavirus 9-valent vaccine Peggy Carrascoh Work Phone: [facility] Work Phone: 01-06-2017 meningococcal polysaccharide (groups A, C, Y and W-135) diphtheria toxoid conjugate vaccine (MCV4P) Peggy Carrascoh Work Phone: [facility] Work Phone: 08-16-2016 Human Papillomavirus 9-valent vaccine Peggy Carrascoh Work Phone: [facility] 12-22-2015 hepatitis A vaccine, pediatric/adolescent dosage, 2 dose schedule Peggy Carrascoh Work Phone: [facility] Work Phone: 12-22-2015 Human Papillomavirus 9-valent vaccine Peggy Carrascoh Work Phone: [facility] Work Phone: 12-22-2015 poliovirus vaccine, inactivated Peggy Carrascoh Work Phone: [facility] Work Phone: 04-09-2013 influenza virus vacc ine, unspecified formulation Peggyandreia Carrascoh Work Phone: [facility] Work Phone: 04-09-2013 meningococcal polysaccharide (groups A, C, Y and W-135) diphtheria toxoid conjugate vaccine (MCV4P) Peggy Langmuth Work Phone: [facility] Work Phone: 04-09-2013 tetanus toxoid, redu marquise diphtheria toxoid, and acellular pertussis vaccine, adsorbed Peggy [facility] Work Phone: [facility] Work Phone: 03-04-2011 influenza virus vacc ine, unspecified formulation Peggy Do Work Phone: [facility] Work Phone: 10-06-2009 varicella virus vaccine Modesta Langmuth Work Phone: [facility] Work Phone: 04-22-2009 novel influenza-H1N1 -09, all formulations Peggy [facility] Work Phone: [facility] Work Phone: 02-19-2006 haemophilus influenz ae type b vaccine, HbOC conjugate Peggy [facility] Work Phone: [facility] Work Phone: 01-16-2006 diphtheria, tetanus toxoids and acellular pertussis vaccine Peggy Langmuth Work Phone: [facility] Work Phone: 04-19-2005 measles, mumps and rubella virus vaccine Peggy Langmuth Work Phone: [facility] Work Phone: 04-19-2005 varicella virus vaccine Modesta Langmuth Work Phone: [facility] Work Phone: 01-12-2005 pneumococcal Conjuga te, unspecified formulation Peggy [facility] Work Phone: [facility] Work Phone: 02-19-2002 poliovirus vaccine, inactivated Peggy [facility] Work Phone: [facility] Work Phone: 2001 measles, mumps and rubella virus vaccine Peggy Lei Work Phone: [facility] Work Phone: 08-05-2001 diphtheria, tetanus toxoids and acellular pertussis vaccine Peggy Lei Work Phone: [facility] Work Phone: 07-31-2001 hepatitis B vaccine, pediatric or pediatric/adolescent dosage Peggy Carrascoh Work Phone: [facility] Work Phone: 05-09-2001 diphtheria, tetanus toxoids and acellular pertussis vaccine Peggy Carrascoh Work Phone: [facility] Work Phone: 05-09-2001 haemophilus influenz ae type b vaccine, HbOC conjugate Peggy Carrascoh Work Phone: [facility] Work Phone: 05-09-2001 poliovirus vaccine, inactivated Peggy Lei Work Phone: [facility] Work Phone: 03-09-2001 diphtheria, tetanus toxoids and acellular pertussis vaccine Peggy Lei Work Phone: [facility] Work Phone: 03-09-2001 haemophilus influenz ae type b vaccine, HbOC conjugate Peggy Lei Work Phone: [facility] Work Phone: 03-09-2001 poliovirus vaccine, inactivated Peggy Lei Work Phone: [facility] Work Phone: 01-31-2001 diphtheria, tetanus toxoids and acellular pertussis vaccine Peggy Lei Work Phone: [facility] Work Phone: 01-31-2001 haemophilus influenz ae type b vaccine, HbOC conjugate Peggy Carrascoh Work Phone: [facility] Work Phone: 01-31-2001 hepatitis B vaccine, pediatric or pediatric/adolescent dosage Peggy Lei Work Phone: [facility] Work Phone: 01-31-2001 poliovirus vaccine, inactivated Peggy Lei Work Phone: [facility] Work Phone: 2000 hepatitis B vaccine, pediatric or pediatric/adolescent dosage Peggy Lei Work Phone: [facility] Work Phone: Payers Date Payer Category Payer Medicaid [employer] [id number] 2024 Self-pay [id number] 2023 Unknown [id number] 2012 Medicaid [employer] [id number] 2012-Present [phone] [address] [place] [address] Medicaid [id number] 2000 Unknown [id number] [id number]9 2000 Unknown [id number] 2.16.840.1.736151.3.579.2.479 2000 Unknown [id number] 2.16.840.1.637682.3.579.2.479 2000 Unknown [id number] 2.16.840.1.912210.3.579.2.627 2000 Unknown [id number] 2.16.840.1.809724.3.579.2.627 2000 Unknown [id number] 2.840.1.269544.3.579.2.627 1978 Unknown [id number] 2..840.1.283704.3.579.2.627 1978 Unknown [id number] .840.1.843098.3.579.2.627 1978 Unknown [id number] 2.840.1.693156.3.579.2.627 1978 Unknown [id number] .840.1.260478.3.579.2.627 1978 Unknown [id number] .840.1.285152.3.579.2.627 Unknown SELF PAY INSURANCE [id number] Unknown [id number] .840.1.262629.3.579.2.462 Unknown [id number] 840.1.426554.3.579.2.462 Unknown [id number] .840.1.416945.3.579.2.462 Unknown [id number] .840.1.966523.3.579.2.462 Unknown [id number] 2.840.1.925431.3.579.2.462 Unknown [id number] 2.840.1.067914.3.579.2.462 Unknown [id number] 2.840.1.405003.3.579.2.462 Unknown [id number] 2.16.840.1.751646.3.579.2.462 Unknown [id number] 2.16.840.1.317663.3.579.2.462 Unknown [id number] 2.16.840.1.178589.3.579.2.462 Unknown [id number] 2.16.840.1.259479.3.579.2.462 Unknown [id number] 2.16.840.1.499536.3.579.2.462 Unknown [id number] 2.16.840.1.283082.3.579.2.462 Unknown [id number] 2.16.840.1.094715.3.579.2.462 Unknown [id number] 2.16.840.1.184509.3.579.2.462 Unknown [id number] 2.16840.1.170781.3.579.2.462 Unknown [id number] 2.16.840.1.879907.3.579.2.462 Unknown [id number] 2.16.840.1.966100.3.579.2.462 Unknown [id number] 2.16.840.1.744361.3.579.2.462 Unknown [id number] 2.16840.1.437106.3.579.2.462 Unknown [id number] 2.840.1.044495.3.579.2.462 Unknown [id number] 2.16840.1.938079.3.579.2.462 Unknown [id number] 2.16840.1.745121.3.579.2.462 Unknown [id number] 2.16840.1.336990.3.579.2.462 Social History Date Type Detail Facility Start: 01-12-2025 Tobacco smoking stat [facility] Never smoked tobacco [facility] Start: 06-07-2019 End: 01-12-2025 Alcohol intake Not Asked [facility] Start: 03-27-2015 End: 01-12-2025 Tobacco Comment step dad in house [facility] Start: 2000 Sex Assigned At Not on file [facility] Start: 01-23-2022 End: 08-23-2023 Tobacco smoking status NHIS Unknown if ever smoked [facility] Start: 10-26-2020 Non-smoker [facility] Start: 2000 Sex Assigned At Female [facility] Sex Assigned At Sex [facility] History of tobacco use Passive smoker [facility] Start: 01-12-2025 Tobacco use and exposure Smokeless tobacco non-user [facility] Start: 06-17-2022 End: 01-12-2025 History of Social function [facility] Start: 06-17-2022 End: 01-12-2025 Tobacco use panel [facility] Start: 10-18-2021 How often to you hav e a drink containing alcohol? Patient declined [facility] Functional Status Date Assessment Result Facility 01-12-2025 Total score [AUDIT-C] -1 025 8:39 AM EDT Ariana Camejo LPN [facility] 07-13-2023 Functional Status Repositions self [facility] Mental Status Date Assessment Result Facility 07-13-2023 Mental Status Oriented x 4 [facility] Clinical Notes 05-09-2023 to 01-12-2025 Patient InstructionsAnay Carrillo APRN.CNP - 01/12/2025 9:27 AM EDT Note Date & Type Note Facility 01-12-2025 Instructions Anay Carrillo APRN.CNP - 01/12/2025 9:31 AM EDT Patient wants to go to [facility] for further evaluation intractable headaches patient took ibuprofen 1000 mg this morning without any relief no history of migraine headaches. documented in this encounter [facility] 01-12-2025 Note HNO ID: [id number] Author: ANAY CARRILLO APRN.THERMAL INTELLIGENCE ANALYST Service: ? Author Type: Nurse Practitioner Type: Progress Notes Filed: 01/12/2025 09:40 Note Text: [facility] [place] Subjective Alexa Romero is a 24 year old female. Patient presents with: Headache: Headache, fever and nausea - states started 3 days ago but worsened overnight Headache Pertinent negatives include no fever, no shortness of breath, no nausea and no vomiting. Alexa Romero is a 24-year-old female presenting with a severe headache and fever. Alexa reports a severe headache and fever that began 4 days ago. The headache is described as pounding and is exacerbated by sudden movements such as stretching or coughing. She notes that the headache was severe enough to bring her to tears upon waking this morning. She has been taking 1000 mg of ibuprofen, which has provided some relief, allowing her to sleep, but the headache persists. She denies any history of migraines, neck pain, or stiffness. She also reports photophobia. Alexa has also experienced intermittent fevers since , with the highest recorded temperature being 101?F. She reports mild nasal congestion but denies any cough. 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 She has a known allergy to acetaminophen, which causes emesis and diarrhea. She is not currently . ALLERGIES[1] Review of Systems Constitutional: Negative for chills, fatigue and fever. HENT: Negative for tinnitus. Eyes: Negative for photophobia and visual disturbance. Respiratory: Negative for shortness of breath and wheezing. Gastrointestinal: Negative for abdominal pain, diarrhea, nausea and vomiting. Musculoskeletal: Negative for neck pain. Neurological: Positive for headaches. Negative for dizziness, syncope, facial asymmetry, speech difficulty, weakness, light-headedness and numbness. Objective BP 114/84 Pulse 81 Temp 36.7 ?C (98.1 ?F) (Temporal) Resp 18 Wt 90.7 kg (200 lb) LMP 12/28/2016 SpO2 100% BMI 35.43 kg/m? Physical Exam Vitals and nursing note reviewed. Constitutional: General: She is not in acute distress. Appearance: Normal appearance. HENT: Head: Normocephalic and atraumatic. Right Ear: Tympanic membrane normal. Left Ear: Tympanic membrane normal. Nose: Nose normal. Eyes: Extraocular Movements: Extraocular movements intact. Conjunctiva/sclera: Conjunctivae normal. Pupils: Pupils are equal, round, and reactive to light. Cardiovascular: Rate and Rhythm: Normal rate and regular rhythm. Pulses: Normal pulses. Heart sounds: Normal heart sounds. Pulmonary: Effort: Pulmonary effort is normal. Breath sounds: Normal breath sounds. Abdominal: General: Abdomen is flat. There is no distension. Palpations: Abdomen is soft. Tenderness: There is no abdominal tenderness. Musculoskeletal: Cervical back: Normal range of motion and neck supple. No rigidity. Skin: General: Skin is warm and dry. Capillary Refill: Capillary refill takes less than 2 seconds. Neurological: Mental Status: She is alert. Comments: Cranial nerves II through XII grossly intact without focal neurological deficit. Upper and lower extremity motor strength 5/5, finger-to- nose normal. Romberg test negative.Normal ambulation {ASSESSMENT/PLAN: 1. Acute intractable headache, unspecified headache type - ICD9: 784.0, ICD10: R51.9 (primary diagnosis) Severe, persistent headache unresponsive to 1000 mg of ibuprofen. No history of migraines. Neurological exam is stable. No neck stiffness or photophobia reported. - Referred to [facility] ER for further evaluation, including potential CT - Advised patient to report intractable headache with no history of migraine at ER. -Due to all the symptoms that patient presented with today ER is recommended . [facility] -Pt is stable and will go with family, declines any EMS service -Pt agrees and understands the plan -Follow up as directed - Patient left the urgent care in stable condition, no in acute distress 2. Acute non-recurrent frontal sinusitis - ICD9: 461.1, ICD10: J01.10 - Will begin treatment with Zithromax pack as directed - The patient should also be given warm salt water gargles, throat lozenges and/or OTC throat spray as needed and nasal saline gtts and suction prn for the first 5-7 days of treatment. - Supportive care with plenty of fluids, rest, and analgesia prn. - Follow up with PCP in 3-5 days if symptoms persist or worsen. - AZITHROMYCIN 250 MG TABLET - CETIRIZINE 10 MG TABLET - FLUCONAZOLE 150 MG TABLET Anay Carrillo APRN.THERMAL INTELLIGENCE ANALYST [1] Allergies Allergen Reactions Tylenol [Acetaminop* Vomiting [facility] 01-12-2025 History of Present illness Narrative [facility] [place] Subjective Alexa Romero is a 24 year old female. Patient presents with: Headache: Headache, fever and nausea - states started 3 days ago but worsened overnight Headache Pertinent negatives include no fever, no shortness of breath, no nausea and no vomiting. Alexa Romero is a 24-year-old female presenting with a severe headache and fever. Alexa reports a severe headache and fever that began 4 days ago. The headache is described as pounding and is exacerbated by sudden movements such as stretching or coughing. She notes that the headache was severe enough to bring her to tears upon waking this morning. She has been taking 1000 mg of ibuprofen, which has provided some relief, allowing her to sleep, but the headache persists. She denies any history of migraines, neck pain, or stiffness. She also reports photophobia. Alexa has also experienced intermittent fevers since , with the highest recorded temperature being 101 F. She reports mild nasal congestion but denies any cough. 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 She has a known allergy to acetaminophen, which causes emesis and diarrhea. She is not currently . ALLERGIES[1] Review of Systems Constitutional: Negative for chills, fatigue and fever. HENT: Negative for tinnitus. Eyes: Negative for photophobia and visual disturbance. Respiratory: Negative for shortness of breath and wheezing. Gastrointestinal: Negative for abdominal pain, diarrhea, nausea and vomiting. Musculoskeletal: Negative for neck pain. Neurological: Positive for headaches. Negative for dizziness, syncope, facial asymmetry, speech difficulty, weakness, light-headedness and numbness. Objective BP 114/84 Pulse 81 Temp 36.7 C (98.1 F) (Temporal) Resp 18 Wt 90.7 kg (200 lb) LMP 12/28/2016 SpO2 100% BMI 35.43 kg/m Physical Exam Vitals and nursing note reviewed. Constitutional: General: She is not in acute distress. Appearance: Normal appearance. HENT: Head: Normocephalic and atraumatic. Right Ear: Tympanic membrane normal. Left Ear: Tympanic membrane normal. Nose: Nose normal. Eyes: Extraocular Movements: Extraocular movements intact. Conjunctiva/sclera: Conjunctivae normal. Pupils: Pupils are equal, round, and reactive to light. Cardiovascular: Rate and Rhythm: Normal rate and regular rhythm. Pulses: Normal pulses. Heart sounds: Normal heart sounds. Pulmonary: Effort: Pulmonary effort is normal. Breath sounds: Normal breath sounds. Abdominal: General: Abdomen is flat. There is no distension. Palpations: Abdomen is soft. Tenderness: There is no abdominal tenderness. Musculoskeletal: Cervical back: Normal range of motion and neck supple. No rigidity. Skin: General: Skin is warm and dry. Capillary Refill: Capillary refill takes less than 2 seconds. Neurological: Mental Status: She is alert. Comments: Cranial nerves II through XII grossly intact without focal neurological deficit. Upper and lower extremity motor strength 5/5, finger-to- nose normal. Romberg test negative.Normal ambulation {ASSESSMENT/PLAN: 1. Acute intractable headache, unspecified headache type - ICD9: 784.0, ICD10: R51.9 (primary diagnosis) Severe, persistent headache unresponsive to 1000 mg of ibuprofen. No history of migraines. Neurological exam is stable. No neck stiffness or photophobia reported. - Referred to [facility] for further evaluation, including potential CT - Advised patient to report intractable headache with no history of migraine at ER. -Due to all the symptoms that patient presented with today ER is recommended . Patient wants to go to [facility]. I called [place] AG[facility] Levi report given to ER MD -Pt is stable and will go with family, declines any EMS service -Pt agrees and understands the plan -Follow up as directed - Patient left the urgent care in stable condition, no in acute distress 2. Acute non-recurrent frontal sinusitis - ICD9: 461.1, ICD10: J01.10 - Will begin treatment with Zithromax pack as directed - The patient should also be given warm salt water gargles, throat lozenges and/or OTC throat spray as needed and nasal saline gtts and suction prn for the first 5-7 days of treatment. - Supportive care with plenty of fluids, rest, and analgesia prn. - Follow up with PCP in 3-5 days if symptoms persist or worsen. - AZITHROMYCIN 250 MG TABLET - CETIRIZINE 10 MG TABLET - FLUCONAZOLE 150 MG TABLET Anay Carrillo APRN.CNP [1] Allergies Allergen Reactions Tylenol [Acetaminop* Vomiting documented in this encounter [facility] 02-04-2024 Note [facility] Medical Records Department [address] [place] [address] Discharge Summary 02/04/24 08 MR#: [id number] Acct: [id number] Name: ALEXA ROMERO Rep #: [id number] : 2000 23 From: Jyotsna Blake MD PCP: Care Physician,No Primary Status:ADM IN [facility] Providers Date of Admission: 01/31/24 Primary Care Physician: No Primary Care Phys Reason For Visit: PRIMARY C SECTION Diagnosis Discharge Diagnosis (1) delivery delivered: Status: Acute Code(s): O82 - Encounter for delivery without indication (2) Category II heart rate tracing during labor and delivery: Status: Acute Code(s): O76 - Abnormality in heart rate and rhythm complicating labor and delivery (3) Supervision of high-risk : Status: Acute Code(s): O09.90 - Supervision of high risk , unspecified, unspecified trimester Qualifiers: Trimester: third trimester Qualified Code(s): O09.93 - Supervision of high risk , unspecified, third trimester (4) : Status: Acute Code(s): Z34.90 - Encounter for supervision of normal , unspecified, unspecified trimester Qualifiers: Weeks of gestation: 39 weeks Qualified Code(s): Z3A.39 - 39 weeks gestation of Plan s/p LTCS PPD # 3 1. routine post care 2. breast feeding- support given 3. rh positive 4. rubella immune Medications at Discharge Home Medications PNV 153-FA 400 mcg-om3 35 mg-dha 25 mg-epa 5 mg-fish oil chew tablet 1 tab PO DAILY 01/19/24 buspirone 7.5 mg tablet 15 mg (2 x 7.5 mg) PO TID PRN anxiety #60 tabs 08/23/23 Hospital Course Summary of Care Provided Hospital Course: patient presented with elevated bps and underwent IOL for GHTN, experieneced recurrent decels and underwent primary . Postoperatively patient had return of bowel and bladder function and was ambulating well, tolerating adequate p.o., and was stable for discharge to home on postop day #3. Discharge medications naproxen and Percocet. Follow-up in office in 2 weeks for incision check in 6 weeks for visit. Routine post section diet and activity instructions. Weight / BMI Weight Weight: 231 lb 11.293 oz Body Mass Index (BMI) 39.7 ABG / Lab / Microbiology Data 02/02/24 09:51 01/31/24 15:07 D/C Instructions Discharge Diet: No restrictions Discharge Activity: May Not Drive (for 2 weeks or while taking narcotic pain medications.), May Shower and May Take a Tub Bath (in 7 days) May shower in (days): 0 May resume sexual activity in: 4-6 weeks Weight Bearing Status: Full weight bearing Call your doctor if your incision/area has: Continuous Slow Oozing, Sudden Increased Bleeding, Increased Pain/ Swelling, Increased Redness and Foul Smelling Discharge Call your doctor if you observe: Fever of 101 or Higher and Using more than 1 pad per hour (for 2 hours) Suture Line Care: Avoid Pulling/Pushing and Avoid Pinching/Bending Cleanse incision/area with: Soap Water and Keep Dressing Clean Dry Please Follow Up With: Jyotsna Blake MD When: Call [phone] to make an appointment for an incision check in 1-2 weeks. Meaningful Use Info Meaningful Use Meaningful Use Diagnoses (Choose all that apply): None applicable Ischemic Stroke Statin Dosing Therapy Reference: STATIN DOSE THERAPY REFERENCE: * Patients > 75 years receive moderate or high dose statin therapy. * Patients 75 years or YOUNGER should receive HIGH intensity statin dose unless contraindicated. You will be required to document reason for non-treatment if statin daily dose does not meet guidelines. HIGH DOSE STATIN THERAPY DAILY Atorvastatin > than or = to 40 mg Rosuvastatin > than or = to 20 mg Amlodipine + Atorvastatin > than or = to 2.5/40 mg Ezetimibe + Simvastatin 10/80 mg Simvastatin 80mg Discharge Plan Admission Admit Date/Time: 01/31/24 16:45 Attending Provider: Sandra Mooney Primary Care Provider: Sebastian Physician,Mitzi Primary Discharge Orders/Prescriptions Prescriptions: No Action PNV no.[id number] 400 mcg-35 mg- 25 mg-5 mg tablet,chewable 1 tab PO DAILY buspirone 7.5 mg tablet 15 mg PO TID PRN (Reason: anxiety) Qty: 60 0RF Rx Instructions: take 1-2 tabs every 8 hours as needed for anxiety Referrals / Follow Up: Care Physician,No Primary [Primary Care Provider] - Disposition Disposition (needs filled in before D/C Order can be placed): Home, Self Care 02/04/24 0810 Cosigner Signature (if applicable): CC: Dr. Jyotsna Blake MD; No Primary Care Physician Signed [facility] 01-07-2024 Note . MICRO - Microbiology PROCEDURE: Culture Beta Strep Only [*1] SOURCE: Throat BODY SITE: Throat COLLECTED DATE/TIME: 01/05/2024 11:59 EDT RECEIVED DATE/TIME: 01/05/2024 18:25 EDT START DATE/TIME: 01/05/2024 18:25 EDT FREE TEXT SOURCE: FINAL REPORTS Final Report [] Verified Date/Time/Personnel: 01/07/2024 06:58 EDT No Beta Strep isolated at 48hrs. PRELIMINARY REPORTS Preliminary Report [] Verified Date/Time/Personnel: 01/06/2024 08:23 EDT No beta Strep isolated at 24 hours. Performing Locations *1: This test was performed at: [facility], [address] [place] [address], [id number] , [facility] ([place]) 07-13-2023 Hospital Discharge instructions Patient Education 07/13/2023 16:33:46 Abdominal Pain, Early Abdominal Pain and Early The tests you had show that you are , but the exact cause of your pain isn t clear. Some pain and bleeding are common early in . Often they stop, and you can go on to have a normal and baby. Other times the pain or bleeding can be signs of a miscarriage or ectopic . An ectopic is a very serious problem. At this time it is unclear if your will continue normally, if you will have a miscarriage, or if you could have an ectopic . Below is some information about this. Miscarriage At this time we don t know whether you will have a miscarriage, or if things will clear up and your will continue normally. We understand that this is emotionally difficult. There is little we can say to change the way you feel. But understand that miscarriages are common. About 1 or 2 out of every [address] Some end even before you know you are . This happens for a number of reasons, and usually we never figure out why. It s important you know that it is not your fault. It didn t happen because you did anything wrong. Having sex or exercising does not cause a miscarriage. These activities are usually safe unless you have pain or bleeding or your doctor tells you to stop. Even minor falls won t cause a miscarriage. Miscarriages happen because things were not developing as they were supposed to. No medicine can prevent a miscarriage. Ectopic In a normal , the fertilized egg attaches to the wall of the womb (uterus). In an ectopic or tubal , the fertilized egg attaches outside the uterus, usually in the fallopian tube. Very rarely, the egg attaches to an ovary or somewhere else in the abdomen. An ectopic is much less common than a miscarriage, but it is very serious. The baby cannot survive, and as it grows it can rupture the tube. This can cause internal bleeding and even . Risk factors for an ectopic are: An ectopic in the past Pelvic inflammatory disease, or PID Endometriosis Smoking An IUD Additional tests Because we don t know what s causing your symptoms, you will need more tests to figure out what the problem is. You may need the following. Ultrasound An ultrasound can usually find a normal as early as 4 to 5 weeks along. If the ultrasound does not show the baby inside the uterus, it means one of the following. You have a normal less than 4 weeks along You are having or recently had a miscarriage You have an ectopic Quantitative HCG This test measures the amount of a hormone in your blood. Comparing today's test result to a repeat test in 2 days will show whether you have a normal . Laparoscopy This is a type of surgery. The healthcare provider will put a tube with a light inside your belly (abdomen) to look directly at your pelvic organs. This test is used when it is not safe to wait 2 days for blood test results. Important information If you do have an ectopic , there is a small chance that the growing fetus can tear the fallopian tube. This can cause severe internal bleeding. If this happens, you may have: Sudden severe pain in your lower abdomen Vaginal bleeding Weakness, dizziness, and sometimes fainting If any of these symptoms occur: Call 911or return right away to the hospital. Don't drive yourself. Don't go to your healthcare provider's office or to a clinic. Go to the hospital. Home care Follow these guidelines to help care for yourself at home: Rest until your next exam. Don t do anything strenuous. Eat a light diet with foods that are easy to digest. Don t have sex until your healthcare provider says it s OK. Follow-up care Follow up with your healthcare provider, or as advised. If you were told to have a repeat blood test in 2 days, it s important to get it done. If you had an X-ray or ultrasound, a radiologist will review it. You will be told of any new findings that may affect your care. Call 911 Call 911 if you have any of these: Severe pain and very heavy bleeding Severe lightheadedness, passing out, or fainting Rapid heart rate Trouble breathing Confused or difficulty waking up When to seek medical advice Call your healthcare provider right away if any of these occur: The pain in your abdomen gets worse, either suddenly or gradually. You are dizzy or weak when you stand. You have heavy vaginal bleeding. This means soaking 1 pad an hour for 3 hours. You have vaginal bleeding for more than 5 days. You have repeated vomiting or diarrhea. The pain in your abdomen moves to the lower right. You have blood in your vomit or bowel movements. This will be dark red or black. You have a fever of 100.4 F (38 C) or higher, or as directed by your healthcare provider. 8784-7161 [employer]. [address] [place] [address], [place] [address]. All rights reserved. This information is not intended as a substitute for professional medical care. Always follow your healthcare professional's instructions. Follow Up Care 07/13/2023 12:29:10 With:Follow up with primary care provider Address:Unknown When:2-4 days [facility] 07-13-2023 Emergency department Discharge summary Discharge Instructions Thank you for allowing [facility] to assist you with your healthcare needs. The following is important discharge information regarding your hospital visit. Diagnosis from Today's Visit Abdominal pain Pelvic pain - <20 wks What to Do Next Instructions from Your Care Team Follow-up closely with your supervisor framing mill, return if any worsening or concerning symptoms. No qualifying data available. Post Acute Orders No qualifying data available. You Need to Schedule the Following Appointments Follow Up with Follow up with primary care provider When Within 2-4 days Allergies Tylenol Medications Please ask your primary doctor or pharmacist before taking any other medication not listed, including over the counter drugs, herbal medications, vitamins and or supplements as they may interact with your home medications. What How Much When Instructions Last Dose Unchanged ibuprofen Unchanged progesterone (progesterone 100 mg oral capsule) 4 cap by mouth Once a day Duration: 10 Days Please take this list to your next doctor s visit. Bring all medications you take, including over the counter medications, herbals and other supplements with you to your doctor s visit. Patients and families are reminded to discard old lists and to update any records with all medication providers or retail pharmacies. Education Materials Abdominal Pain and Early The tests you had show that you are , but the exact cause of your pain isn t clear. Some pain and bleeding are common early in . Often they stop, and you can go on to have a normal and baby. Other times the pain or bleeding can be signs of a miscarriage or ectopic . An ectopic is a very serious problem. At this time it is unclear if your will continue normally, if you will have a miscarriage, or if you could have an ectopic . Below is some information about this. Miscarriage At this time we don t know whether you will have a miscarriage, or if things will clear up and your will continue normally. We understand that this is emotionally difficult. There is little we can say to change the way you feel. But understand that miscarriages are common. About 1 or 2 out of every [address] Some end even before you know you are . This happens for a number of reasons, and usually we never figure out why. It s important you know that it is not your fault. It didn t happen because you did anything wrong. Having sex or exercising does not cause a miscarriage. These activities are usually safe unless you have pain or bleeding or your doctor tells you to stop. Even minor falls won t cause a miscarriage. Miscarriages happen because things were not developing as they were supposed to. No medicine can prevent a miscarriage. Ectopic In a normal , the fertilized egg attaches to the wall of the womb (uterus). In an ectopic or tubal , the fertilized egg attaches outside the uterus, usually in the fallopian tube. Very rarely, the egg attaches to an ovary or somewhere else in the abdomen. An ectopic is much less common than a miscarriage, but it is very serious. The baby cannot survive, and as it grows it can rupture the tube. This can cause internal bleeding and even . Risk factors for an ectopic are: An ectopic in the past Pelvic inflammatory disease, or PID Endometriosis Smoking An IUD Additional tests Because we don t know what s causing your symptoms, you will need more tests to figure out what the problem is. You may need the following. Ultrasound An ultrasound can usually find a normal as early as 4 to 5 weeks along. If the ultrasound does not show the baby inside the uterus, it means one of the following. You have a normal less than 4 weeks along You are having or recently had a miscarriage You have an ectopic Quantitative HCG This test measures the amount of a hormone in your blood. Comparing today's test result to a repeat test in 2 days will show whether you have a normal . Laparoscopy This is a type of surgery. The healthcare provider will put a tube with a light inside your belly (abdomen) to look directly at your pelvic organs. This test is used when it is not safe to wait 2 days for blood test results. Important information If you do have an ectopic , there is a small chance that the growing fetus can tear the fallopian tube. This can cause severe internal bleeding. If this happens, you may have: Sudden severe pain in your lower abdomen Vaginal bleeding Weakness, dizziness, and sometimes fainting If any of these symptoms occur: Call 911or return right away to the hospital. Don't drive yourself. Don't go to your healthcare provider's office or to a clinic. Go to the hospital. Home care Follow these guidelines to help care for yourself at home: Rest until your next exam. Don t do anything strenuous. Eat a light diet with foods that are easy to digest. Don t have sex until your healthcare provider says it s OK. Follow-up care Follow up with your healthcare provider, or as advised. If you were told to have a repeat blood test in 2 days, it s important to get it done. If you had an X-ray or ultrasound, a radiologist will review it. You will be told of any new findings that may affect your care. Call 911 Call 911 if you have any of these: Severe pain and very heavy bleeding Severe lightheadedness, passing out, or fainting Rapid heart rate Trouble breathing Confused or difficulty waking up When to seek medical advice Call your healthcare provider right away if any of these occur: The pain in your abdomen gets worse, either suddenly or gradually. You are dizzy or weak when you stand. You have heavy vaginal bleeding. This means soaking 1 pad an hour for 3 hours. You have vaginal bleeding for more than 5 days. You have repeated vomiting or diarrhea. The pain in your abdomen moves to the lower right. You have blood in your vomit or bowel movements. This will be dark red or black. You have a fever of 100.4 F (38 C) or higher, or as directed by your healthcare provider. [phone] [employer]. [address] [place] [address]. All rights reserved. This information is not intended as a substitute for professional medical care. Always follow your healthcare professional's instructions. Additional Information VACCINATE! IT SAVES LIVES! Members of the community who have not yet received the COVID-19 vaccine and would like to receive it can visit one of [facility] vaccine clinics. There are many vaccine clinic locations within the [facility]. For locations and available times, please visit [email or web address] [email or web address] It is important to note that some COVID mobile vaccine clinics are held outdoors and may be canceled in rainy or stormy conditions. To learn more about pediatric vaccinations (ages 5-11), we invite you to visit the [facility] webpage. [email or web address] [email or web address]-Meiwd-[email or web address]-[email or web address] [email or web address] To learn more about the COVID-19 vaccine, we invite you to visit the CDC website for a list of frequently asked questions. https://www.cdc.gov/coronavirus/ 2019-ncov/vaccines/faq.html [facility] Patient Portal Access Instructions: Stay connected with your healthcare team and access your personal medical information anytime with the [facility] Patient Portal. If you would like a full copy of your medical records please contact the [facility] Medical Records Department Monday through Monday between 8a.m. and 4:30p.m. Please follow the directions below to access the portal: 1.Access the email account you provided upon registration to the [facility].2.Look for an invitation email from [facility].3.Open the email and access the invitation link: [facility] to [facility].Fill in the required coyne to create your account. Sign into [email or web address] with your username and password that you created in the above steps to stay up to date. You can then view a summary of results, a summary of your visits, and the ability to download your summaries to your computer or send the information securely to a physician. Remember that your healthcare information is confidential, so carefully consider who you will allow to register on the [facility] Patient Portal for access to your information. You can also access the [facility] Patient Portal on the [employer]. Simply click on Health Records under Health Data and then click on the [employer] logo. HOW TO SAFELY DISPOSE OF PRESCRIPTION MEDICATIONS Please use one of the following methods to safely dispose of your unused medications. 1.Use a drug disposal kit: the drug disposal pouch allows you to safely discard your old and unused drugs. Ask your nurse to give you one when you are discharged.2.Visit a local take-back location: Many local pharmacies and police departments have programs that collect old and unwanted prescription drugs. Call your local pharmacy or go to http://bit.ly/3Q0Mp5u to find one close to you.3.Make use of household items: Use cat litter or old coffee grounds to dispose medications if other options are not available. Mix your drugs with these household products, seal them in an airtight container and throw it into the garbage. Call [facility]: [phone] to be sure your drugs can be disposed of in this way. Some medicines may require a different approach.4.Never flush your medications down the toilet. IF YOU HAVE BEEN PRESCRIBED AN OPIOIDS FOR PAIN If you have been prescribed an opioid (such as hydrocodone, oxycodone or morphine), it is critical to understand the possible side effects and risks of opioid pain medications. Even when taken as directed, opioids can have several side effects including: Tolerance, meaning you might need to take more of a medication for the same pain relief. Nausea, vomiting and/or constipation. Sleepiness, dizziness, dry mouth, confusion, depression or itching. Physical dependence, meaning you have withdrawal symptoms when a medication is stopped ? this can develop within a few days. KNOW YOUR RESPONSIBILITIES It is important to know exactly how much and how often to take the opioid pain medications you are prescribed. Never take opioids in higher amounts or more often than prescribed. Do not combine opioids with alcohol or other drugs that cause drowsiness, such as benzodiazepines, also known as benzos, including diazepam and alprazolam, muscle relaxants or sleep aids. Never sell or share prescription opioids. This is illegal. Store opioids in a secure place and out of reach of others (including children, family, friends and visitors). The last page(s) of this document has been signed and retained as a CHART COPY Signatures Patient Education Materials Abdominal Pain, Early Medication Leaflets My discharge plan and instructions have been reviewed and explained to me and INICK ALEXA Austin understand my current condition and have read and understand these discharge instructions. I have received a written copy of the plan/instructions. If I have questions, I am aware that I should contact my doctor. 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: Date/Time: Relationship to Patient: Witness Name/Signature: Date/Time: [facility] 05-09-2023 Procedure note [facility] Evaluation + Plan note No data available for this section [facility] Evaluation note No assessment inform ation available [facility] Work Phone: Evaluation note Diagnosis Onset Date Amenorrhea acute Infertility associated with anovulation acute [facility] Work Phone: Evaluation note* Diagnosis Onset Date Resolution Status Amenorrhea acute Infertility associated with anovulation acute Infertility associated with anovulation acute [facility] Work Phone: Evaluation note* Diagnosis Onset Date Resolution Status Infertility associated with anovulation acute Infertility associated with anovulation acute Headache, migraine acute Infertility associated with anovulation acute Obesity affecting acute acute Schizoid personality disorder acute Spotting in early acute Supervision of high-risk acute [facility] Work Phone: Evaluation note* Diagnosis Onset Date Resolution Status Infertility associated with anovulation acute Headache, migraine acute Infertility associated with anovulation acute Obesity affecting acute acute Schizoid personality disorder acute Spotting in early acute Supervision of high-risk acute Headache, migraine acute Infertility associated with anovulation acute Obesity affecting acute acute Schizoid personality disorder acute Spotting in early acute Supervision of high-risk acute Headache, migraine acute Infertility associated with anovulation acute Obesity affecting acute acute Schizoid personality disorder acute Spotting in early acute Supervision of high-risk acute Family history of heart disease acute Headache, migraine acute Infertility associated with anovulation acute Obesity affecting acute acute Schizoid personality disorder acute Spotting in early acute Supervision of high-risk acute [facility] Work Phone: Evaluation note* Diagnosis Acute intractable headache, unspecified headache type- Primary Acute non-recurrent frontal sinusitis documented in this encounter [facility] Discharge instructionsAmbulatory Orders* Cardiology Location: None Selected [facility] Work Phone: Summary Purpose Family History No Family History Records Found Relationship Condition Age at Onset Recorded Date/T mimi mother Cardiac disease Unknown father Unknown Relationship Condition Age at Onset Recorded Date/T mimi mother Cardiac disease Unknown Hemorrhagic disorder Unknown Family history of recurrent miscarriage U nknown father Unknown Advance Directives No Advanced Directives Records Found Advance Directive Response Recorded Date/ Time Living Will No January 23 2 2:35pm Power of Skiving Machine Operator No January 23 022 2:35pm Advance Directive Response Recorded Date/ Time Living Will No January 23 1:35pm Power of Skiving Machine Operator No January 23, 2 022 1:35pm Advance Directive Response Recorded Date/ Time Living Will No August 15, 2023 8:27am Power of Skiving Machine Operator No August 14 8:27am Chief Complaint and Reason for Visit Chief Complaint Rt ankle injury Chief Complaint discuss issues w/per iods and fertility N91.2 N97.0 Reason for Visit Amenorrhea Infertility associated with anovulation Chief Complaint discuss issues w/per iods and fertility N91.2 N97.0 FEMALE FERTILITY FEMALE FERTILITY Reason for Visit Amenorrhea Infertility associated with anovulation Infertility associated with anovulation Chief Complaint discuss issues w/per iods and fertility N91.2 N97.0 FEMALE FERTILITY FEMALE FERTILITY E-ORDER E-ORDER Reason for Visit Amenorrhea Infertility associated with anovulation Infertility associated with anovulation Chief Complaint discuss issues w/per iods and fertility N91.2 N97.0 FEMALE FERTILITY FEMALE FERTILITY E-ORDER E-ORDER Amenorrhea, unspecified Reason for Visit Amenorrhea Infertility associated with anovulation Infertility associated with anovulation Chief Complaint discuss issues w/per iods and fertility N91.2 N97.0 FEMALE FERTILITY FEMALE FERTILITY E-ORDER E-ORDER Amenorrhea, unspecified NOB, LMP 05/01/23, CARL 02/05/24 Reason for Visit Infertility associat ed with anovulation Infertility associated with anovulation Headache, migraine Infertility associated with anovulation Obesity affecting Schizoid personality disorder Spotting in early Supervision of high-risk Chief Complaint FEMALE FERTILITY FEMALE FERTILITY E-ORDER E-ORDER Amenorrhea, unspecified NOB, LMP 05/01/23, CARL 02/05/24 12 [facility] OB HEART TONE CHECK SCREENING 16 WK OB Reason for Visit Infertility associat ed with anovulation Headache, migraine Infertility associated with anovulation Obesity affecting Schizoid personality disorder Spotting in early Supervision of high-risk Headache, migraine Infertility associated with anovulation Obesity affecting Schizoid personality disorder Spotting in early Supervision of high-risk Headache, migraine Infertility associated with anovulation Obesity affecting Schizoid personality disorder Spotting in early Supervision of high-risk Family history of heart disease Headache, migraine Infertility associated with anovulation Obesity affecting Schizoid personality disorder Spotting in early Supervision of high-risk Additional Source Comments INFORMATION SOURCE (unrecogn ized section and content) DATE CREATED AUTHOR 06/07/2019 [facility] DATE CREATED AUTHOR AUTHOR'S ORGANIZ ATION 06/23/2021 [facility] DATE CREATED AUTHOR AUTHOR'S ORGANIZ ATION 09/25/2021 [facility] DATE CREATED AUTHOR AUTHOR'S ORGANIZ ATION 10/20/2023 [facility] DATE CREATED AUTHOR AUTHOR'S ORGANIZ ATION 01/13/2024 [facility] ([place]) DATE CREATED AUTHOR AUTHOR'S ORGANIZ ATION 09/08/2024 [facility] DATE CREATED AUTHOR AUTHOR'S ORGANIZ ATION 12/27/2024 [facility] DATE CREATED AUTHOR AUTHOR'S ORGANIZ ATION 01/13/2025 [facility] nt DATE CREATED AUTHOR AUTHOR'S ORGANIZ ATION 01/15/2025 [facility] Source Comments (unrecognize d section and content) In the event this informatio n is protected by the Federal Confidentiality of Alcohol and Drug Abuse Patient Records regulations: The Federal rules restrict any use of the information to criminally investigate or prosecute any alcohol or drug abuse patient.[facility] the event this information is protected by the Federal Confidentiality of Alcohol and Drug Abuse Patient Records regulations: The Federal rules restrict any use of the information to criminally investigate or prosecute any alcohol or drug abuse patient.[facility] Care Teams (unrecognized sec tion and content) Fur Trapper Relationship Specialty Start Date End Date Peggy Lei [address] [place] [address] PCP - General Pediatrics 01/09/19 Team Status: Active Member Role Status Dates Dr. Peggy Lei MD Family Provider Active Team Status: Inactive Member Role Status Dates Dr. Peggy Lei MD Referring Provider Active Dr. Sandra Mooney DO Attending Provider Activ e Team Status: Inactive Member Role Status Dates Dr. Sandra Mooney DO Attending Provider, Refe rring Provider Active Team Status: Active Member Role Status Dates Dr. Sandra Mooney DO Attending Provider, Referring Provider, Other Provider Active Team Status: Active Member Role Status Dates Dr. Peggy Lei MD Family Provider Active No Primary Care Physician Primary Care Provider Active Team Status: Inactive Member Role Status Dates No Primary Care Physician Primary Care Provider Active Kristen Maldonado CNM Attending Provider, Referring Pro vider Active Team Status: Active Member Role Status Dates No Primary Care Physician Primary Care Provider Active Dr. Jyotsna Blake MD Attending Provider, Referr ing Provider Active Team Status: Inactive Member Role Status Dates No Primary Care Physician Primary Care Provider Active Dr. Jyotsna Blake MD Attending Provider, Referr ing Provider Active Team Status: Inactive Member Role Status Dates Dr. Jyotsna Blake MD Attending Provider, Referr ing Provider Active No Primary Care Physician Primary Care Provider Active Team Status: Inactive Member Role Status Dates Dr. Sandra Mooney DO Attending Provider Activ e No Primary Care Physician Primary Care Provider, Refer ring Provider Active Team Status: Inactive Member Role Status Dates No Primary Care Physician Primary Care Provider Active Dr. Sandra Mooney DO Attending Provider Activ e Team Status: Inactive Member Role Status Dates No Primary Care Physician Primary Care Provider Active Dr. Sandra Mooney DO Attending Provider, Refe rring Provider Active Team Status: Inactive Member Role Status Dates No Primary Care Physician Primary Care Provider, Refer ring Provider Active Kristen Maldonado CNM Attending Provider Active Team Status: Inactive Member Role Status Dates No Primary Care Physician Primary Care Provider, Refer ring Provider Active Dr. Sandra Mooney DO Attending Provider Activ e Team Status: Inactive Member Role Status Dates No Primary Care Physician Referring Provider Active Kristen Maldonado CNM Attending Provider Active Goals (unrecognized section and content) Goals may be documented in a n alternate sectionGoals may be documented in an alternate sectionGoals may be documented in an alternate sectionGoals may be documented in an alternate sectionGoals may be documented in an alternate sectionGoals may be documented in an alternate sectionGoals may be documented in an alternate section No data available for this sectionGoals may be documented in an alternate sectionGoals may be documented in an alternate section Reason for Visit (unrecogniz ed section and content) Reason Comments Headache Headache, fever and nausea - states started 3 days ago but worsened overnight FOR RECORDS PERTAINING TO PATIENTS WHO ARE [...] BE BASED ON THE PRIMARY CLINICAL RECORDS. [address] [facility]. provides no warranty or guarantee of the accuracy or completeness of information in this document.
== END | disposition home or self-care (01) ==
LOC: US 08:53
PROVIDERS: Referring Provider Obstetrics & Gynecology; Visit Provider Obstetrics & Gynecology
DX: Z30.431 Encounter for routine checking of intrauterine contraceptive device (principal)
CPT/HCPCS: 76830; 76856